=== PATIENT | female | born 1970 | race Caucasian/White ===

== ENCOUNTER 2017-07-30 18:46 | Emergency (ER) | payer MEDICAID ==
[~2017-07-30] VITALS: Ht 162.6 cm; Wt 90.7 kg
[2017-07-30 19:40] LABS: BASOPHILS # (AUTO) 0.1 X10'3 (0-0.2); BASOPHILS % (AUTO) 0.7 % (0-1); EOSINOPHILS # (AUTO) 0.3 X10'3 (0-0.9); HEMOGLOBIN 14.9 g/dl (12.0-16.0); LYMPHOCYTES # (AUTO) 3.5 X10'3 (1.1-4.8); LYMPHOCYTES % (AUTO) 41.2 % (21-51); MEAN CORPUSCULAR HEMOGLOBIN 30.5 PG (27.0-31.0); MEAN CORPUSCULAR HGB CONC 34.8 % (33.0-36.5); MEAN CORPUSCULAR VOLUME 87.6 FL (78-98); MEAN PLATELET VOLUME 8.6 FL (7.4-10.4); MONOCYTES # (AUTO) 0.6 X10'3 (0-0.9); MONOCYTES % (AUTO) 6.9 % (2-12); NEUTROPHILS # (AUTO) 4.1 X10'3 (1.8-7.7); NEUTROPHILS % (AUTO) 48.2 % (42-75); PLATELET COUNT 306 X10'3 (140-440); RED BLOOD COUNT 4.91 X10'6 (4.20-5.60); WHITE BLOOD COUNT 8.5 X10'3 (4.5-11.0)
[2017-07-30 19:51] LABS: PROTHROMBIN TIME 10.2 SECONDS (9.0-12.0)
[2017-07-30 19:59] LABS: ALANINE AMINOTRANSFERASE 27 U/L (12-78); ALBUMIN 3.9 G/DL (3.4-5.0); ALKALINE PHOSPHATASE 88 IU/L (46-116); ANION GAP 9 (8-16); ASPARTATE AMINO TRANSFERASE 19 U/L (10-37); BILIRUBIN,TOTAL 0.4 MG/DL (0.1-1.0); BLOOD UREA NITROGEN 12 MG/DL (7-18); BUN/CREATININE RATIO 13.3 (6.6-38.0); CALCIUM 9.1 MG/DL (8.5-10.1); CHLORIDE 103 MMOL/L (99-107); GLUCOSE 96 MG/DL (70-104); POTASSIUM 3.8 MMOL/L (3.5-5.1); SODIUM 140 MMOL/L (135-145); TOTAL CARBON DIOXIDE 28.5 MMOL/L (24-32); TOTAL PROTEIN 7.7 G/DL (6.4-8.2); eGFR 67 ML/MIN
[2017-07-30 20:15] LABS: CLARITY,URINE CLOUDY (Clear); COLOR,URINE YELLOW (Yellow); GLUCOSE, URINE NEGATIVE (Neg); KETONES,URINE NEGATIVE (Neg); LEUKOCYTE ESTERASE ,URINE NEGATIVE (Neg); NITRITES, URINE NEGATIVE (Neg); OCCULT BLOOD,URINE NEGATIVE (Neg); PROTEIN,URINE NEGATIVE (Neg); UROBILINOGEN,URINE 0.2 E.U/dL (0.2-1.0)
[2017-07-30 20:52] LABS: UA COLLECTION TYPE CLN CATCH MIDSTREAM
[2017-07-30 20:58] LABS: BACTERIA,URINE 4+ /HPF (Neg); MUCUS STRANDS MODERATE /LPF (Neg); RBC,URINE NONE SEEN /HPF (0-2); SQUAMOUS EPITHELIAL CELL,UR MANY /LPF (FEW); WBC,URINE 0-4 /HPF (0-4)
[2017-07-30 20:59] LABS: YEAST FEW /HPF (NEGATIVE)
[2017-07-30] MEDS ORDERED: ondansetron/PF 4mg/2ml inj IV ONE (22:30)
[2017-07-30] MEDS ORDERED: morphine 2 MG/ML inj. syringe IV ONE (22:30)
[2017-07-30] MEDS ORDERED: normal saline 1000ml 1,000 ML IV ONE (22:30)
[2017-07-30] MEDS ORDERED: iohexol 300mg/ml 100ml inj. ONE (22:38)
[2017-07-31] MEDS ORDERED: ACET1TAB12 PO (00:02)
[2017-07-31] MEDS ORDERED: morphine 2 MG/ML inj. syringe IV ONE (00:20)
[2017-07-31 00:53] VITALS: BP 110/76
== END 2017-07-31 00:54 | disposition home or self-care (01) ==
LOC: ER 18:46
DX: K52.9 Noninfective gastroenteritis and colitis, unspecified (principal); F17.200 Nicotine dependence, unspecified, uncomplicated; F12.10 Cannabis abuse, uncomplicated; Z90.710 Acquired absence of both cervix and uterus; Z88.2 Allergy status to sulfonamides; Z88.1 Allergy status to other antibiotic agents
CPT/HCPCS: 36415; 74177; 80053; 81001; 85025; 85610; 96361; 96374; 96375; 96376; 99285; J2270; J2405; J7030; Q9967

== ENCOUNTER 2017-10-04 20:34 | Emergency (ER) | payer MEDICAID ==
[~2017-10-04] VITALS: Ht 162.6 cm; Wt 81.1 kg
[~2017-10-04 20:34] MED LIST: ACET1TAB12 PO
[2017-10-04 20:43] VITALS: BP 118/72
[2017-10-04] MEDS ORDERED: DICL50TA8 PO (21:34)
[2017-10-04] MEDS ORDERED: HYDR-3965 PO (21:34)
== END 2017-10-04 21:38 | disposition home or self-care (01) ==
LOC: ER 20:35
DX: M54.5 Low back pain (principal); F12.10 Cannabis abuse, uncomplicated; G89.29 Other chronic pain; M79.7 Fibromyalgia; Z90.710 Acquired absence of both cervix and uterus; Z88.2 Allergy status to sulfonamides; Z88.1 Allergy status to other antibiotic agents; Z88.8 Allergy status to other drugs, medicaments and biological substances; Z79.899 Other long term (current) drug therapy
CPT/HCPCS: 99283

== ENCOUNTER 2019-03-20 14:38 | Emergency (ER) | payer MEDICAID ==
[~2019-03-20] VITALS: Ht 157.5 cm; Wt 88.1 kg
[~2019-03-20 14:38] MED LIST changes: +DICL50TA8 PO
[2019-03-20 14:44] VITALS: BP 131/109
[2019-03-20] MEDS ORDERED: dexamethasone sod phosphate 10mg/ml inj IM STA (15:29)
[2019-03-20] MEDS ORDERED: ketorolac tromethamine 15mg/ml inj. IM ONE (15:30)
== END 2019-03-20 15:44 | disposition home or self-care (01) ==
LOC: ER 14:39
DX: M54.2 Cervicalgia (principal); R20.0 Anesthesia of skin; F12.90 Cannabis use, unspecified, uncomplicated; G89.29 Other chronic pain; M79.7 Fibromyalgia; Z90.710 Acquired absence of both cervix and uterus; Z88.2 Allergy status to sulfonamides; Z88.1 Allergy status to other antibiotic agents; Z88.8 Allergy status to other drugs, medicaments and biological substances
CPT/HCPCS: 96372; 99283; J1100; J1885

== ENCOUNTER 2019-03-22 15:53 | Emergency (ER) | payer MEDICAID ==
[~2019-03-22] VITALS: Ht 157.5 cm; Wt 88.9 kg
[2019-03-22 15:56] VITALS: BP 139/92
[2019-03-22] MEDS ORDERED: DICL100G15 TOP (16:56)
== END 2019-03-22 17:30 | disposition home or self-care (01) ==
LOC: ER 15:54
DX: S60.211A Contusion of right wrist, initial encounter (principal); S70.01XA Contusion of right hip, initial encounter; G89.29 Other chronic pain; M79.7 Fibromyalgia; F12.90 Cannabis use, unspecified, uncomplicated; Z90.710 Acquired absence of both cervix and uterus; Z88.2 Allergy status to sulfonamides; Z88.1 Allergy status to other antibiotic agents; Z88.8 Allergy status to other drugs, medicaments and biological substances; Z79.899 Other long term (current) drug therapy; W01.0XXA Fall on same level from slipping, tripping and stumbling without subsequent striking against object, initial encounter; Y93.89 Activity, other specified; Y92.89 Other specified places as the place of occurrence of the external cause; Y99.8 Other external cause status
CPT/HCPCS: 99284

== ENCOUNTER 2019-04-02 17:44 | Emergency (ER) | payer MEDICAID ==
[~2019-04-02 17:44] MED LIST changes: +DICL100G15 TOP
== END 2019-04-02 18:56 | disposition left against medical advice (07) ==
LOC: ER 17:44
DX: M79.673 Pain in unspecified foot (principal); Z53.21 Procedure and treatment not carried out due to patient leaving prior to being seen by health care provider

== ENCOUNTER 2019-04-03 14:19 | Emergency (ER) | payer MEDICAID ==
[~2019-04-03] VITALS: Ht 157.5 cm; Wt 89.6 kg
[2019-04-03 14:58] VITALS: BP 119/80
[2019-04-03] MEDS ORDERED: ketorolac tromethamine 15mg/ml inj. IM ONE (15:15)
[2019-04-03] MEDS ORDERED: triamcinolone acetonide 40mg/ml inj IM ONE (15:35)
== END 2019-04-03 16:01 | disposition home or self-care (01) ==
LOC: ER 14:19
DX: S90.32XA Contusion of left foot, initial encounter (principal); M54.2 Cervicalgia; G89.29 Other chronic pain; M79.7 Fibromyalgia; F12.90 Cannabis use, unspecified, uncomplicated; Z90.710 Acquired absence of both cervix and uterus; Z88.2 Allergy status to sulfonamides; Z88.1 Allergy status to other antibiotic agents; Z79.899 Other long term (current) drug therapy; W01.0XXA Fall on same level from slipping, tripping and stumbling without subsequent striking against object, initial encounter; Y93.89 Activity, other specified; Y92.89 Other specified places as the place of occurrence of the external cause; Y99.8 Other external cause status
CPT/HCPCS: 73630; 96372; 99284; J1885; J3301

== ENCOUNTER 2019-09-29 16:51 | Emergency (ER) | payer MEDICAID ==
[~2019-09-29] VITALS: Ht 162.6 cm; Wt 93.0 kg
[2019-09-29 17:02] VITALS: BP 117/87
--- NOTE | 2019-09-29 18:17 | NUR ---
ice pack applied to right shoulder dr. martinez at bedside assessing pt.
[2019-09-29] MEDS ORDERED: ketorolac trometh. 30mg/ml inj. IM ONE (18:20)
[2019-09-29] MEDS ORDERED: HYDROcodone/acetaminophen 5mg/325mg tablet PO ONE (18:20)
[2019-09-29] MEDS ORDERED: HYDR-3965 PO (18:35)
== END 2019-09-29 18:51 | disposition home or self-care (01) ==
LOC: ER 16:52
DX: S42.201A Unspecified fracture of upper end of right humerus, initial encounter for closed fracture (principal); G89.29 Other chronic pain; M79.7 Fibromyalgia; F12.90 Cannabis use, unspecified, uncomplicated; Z90.710 Acquired absence of both cervix and uterus; Z88.2 Allergy status to sulfonamides; Z88.1 Allergy status to other antibiotic agents; Z88.5 Allergy status to narcotic agent; W01.0XXA Fall on same level from slipping, tripping and stumbling without subsequent striking against object, initial encounter; Y93.89 Activity, other specified; Y92.89 Other specified places as the place of occurrence of the external cause; Y99.8 Other external cause status
CPT/HCPCS: 73030; 96372; 99284; J1885

== ENCOUNTER 2019-10-29 09:18 | Emergency (ER) | payer MEDICAID ==
[~2019-10-29] VITALS: Ht 162.6 cm; Wt 87.3 kg
[2019-10-29 09:18] VITALS: BP 197/105
[2019-10-29] MEDS ORDERED: proCHLORperazine 10 MG/2 ml inj IV ONE (09:30)
[2019-10-29] MEDS ORDERED: normal saline 1000ml 1,000 ML IV ONE ×2 (09:30→10:00)
[2019-10-29] MEDS ORDERED: ondansetron/PF 4mg/2ml inj IV ONE (09:30)
[2019-10-29 09:34] LABS: BASOPHILS # (AUTO) 0.1 X10'3 (0-0.2); EOSINOPHILS # (AUTO) 0.3 X10'3 (0-0.9); EOSINOPHILS % (AUTO) 2.2 % (0-6); LYMPHOCYTES # (AUTO) 2.9 X10'3 (1.1-4.8); MEAN CORPUSCULAR HEMOGLOBIN 30.7 PG (27.0-31.0); NEUTROPHILS # (AUTO) 8.8 X10'3 (1.8-7.7); WHITE BLOOD COUNT 13.4 X10'3 (4.5-11.0)
[2019-10-29 09:35] LABS: BASOPHILS % (AUTO) 1.1 % (0-1); LYMPHOCYTES % (AUTO) 21.8 % (21-51); MEAN CORPUSCULAR VOLUME 90.2 FL (78-98); MEAN PLATELET VOLUME 8.4 FL (7.4-10.4); MONOCYTES # (AUTO) 1.2 X10'3 (0-0.9); MONOCYTES % (AUTO) 9.2 % (2-12); NEUTROPHILS % (AUTO) 65.7 % (42-75); PLATELET COUNT 281 X10'3 (140-440); RED BLOOD COUNT 4.88 X10'6 (4.20-5.60); RED CELL DISTRIBUTION WIDTH 13.6 % (11.5-14.5)
[2019-10-29 09:48] LABS: ALANINE AMINOTRANSFERASE 29 U/L (12-78); ALBUMIN 3.7 G/DL (3.4-5.0); ALKALINE PHOSPHATASE 97 IU/L (46-116); ANION GAP 9 (8-16); ASPARTATE AMINO TRANSFERASE 27 U/L (10-37); BILIRUBIN,TOTAL 0.3 MG/DL (0.1-1.0); BLOOD UREA NITROGEN 23 MG/DL (7-18); BUN/CREATININE RATIO 23.7 (6.6-38.0); CALCIUM 9.4 MG/DL (8.5-10.1); CHLORIDE 106 MMOL/L (99-107); CREATININE 0.97 MG/DL (0.40-0.90); GLUCOSE 115 MG/DL (70-104); LIPASE 258 U/L (73-393); POTASSIUM 3.6 MMOL/L (3.5-5.1); SODIUM 142 MMOL/L (135-145); TOTAL CARBON DIOXIDE 27.3 MMOL/L (24-32); TOTAL PROTEIN 7.3 G/DL (6.4-8.2); eGFR 61 ML/MIN
[2019-10-29] MEDS ORDERED: loperamide 2mg capsule PO ONE (10:20)
[2019-10-29] MEDS ORDERED: ONDA8TAB6 PO (10:22)
[2019-10-29 10:23] LABS: PLATELET ESTIMATE NORMAL; TOTAL CELLS COUNTED 100
== END 2019-10-29 10:48 | disposition home or self-care (01) ==
LOC: ER 09:18
DX: K52.9 Noninfective gastroenteritis and colitis, unspecified (principal); G89.29 Other chronic pain; M79.7 Fibromyalgia; F12.90 Cannabis use, unspecified, uncomplicated; Z90.710 Acquired absence of both cervix and uterus; Z88.2 Allergy status to sulfonamides; Z79.899 Other long term (current) drug therapy
CPT/HCPCS: 36415; 80053; 83690; 85025; 96361; 96374; 96375; 99284; J0780; J2405; J7030

== ENCOUNTER 2019-10-30 13:22 | Emergency (ER) | payer MEDICAID ==
[~2019-10-30] VITALS: Ht 162.6 cm; Wt 87.3 kg
[~2019-10-30 13:22] MED LIST changes: +ONDA8TAB6 PO
[2019-10-30 13:26] VITALS: BP 147/92
--- NOTE | 2019-10-30 14:03 | NUR ---
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
[2019-10-30] MEDS ORDERED: HYDROcodone/acetaminophen 5mg/325mg tablet PO ONE (15:10)
[2019-10-30] MEDS ORDERED: ondansetron 4mg rapidly disintigrating tab PO ONE (15:10)
== END 2019-10-30 15:24 | disposition home or self-care (01) ==
LOC: ER 13:23
DX: S43.491A Other sprain of right shoulder joint, initial encounter (principal); G89.29 Other chronic pain; M79.7 Fibromyalgia; F17.200 Nicotine dependence, unspecified, uncomplicated; F12.90 Cannabis use, unspecified, uncomplicated; Z90.710 Acquired absence of both cervix and uterus; Z88.2 Allergy status to sulfonamides; Z88.1 Allergy status to other antibiotic agents; Z79.899 Other long term (current) drug therapy; W01.0XXA Fall on same level from slipping, tripping and stumbling without subsequent striking against object, initial encounter; Y93.89 Activity, other specified; Y92.89 Other specified places as the place of occurrence of the external cause; Y99.8 Other external cause status
CPT/HCPCS: 73030; 99283

== ENCOUNTER 2019-12-02 21:45 | Emergency (ER) | payer MEDICAID ==
[~2019-12-02] VITALS: Ht 162.6 cm; Wt 82.7 kg
[2019-12-02] MEDS ORDERED: ketorolac trometh inj. 60 MG/2 ML VIAL IM ONE (22:50)
[2019-12-02] MEDS ORDERED: HYDROcodone/acetaminophen 10/325mg tab PO ONE (22:50)
[2019-12-02 23:05] VITALS: BP 123/98
== END 2019-12-02 23:06 | disposition home or self-care (01) ==
LOC: ER 21:45
DX: S49.92XA Unspecified injury of left shoulder and upper arm, initial encounter (principal); G89.29 Other chronic pain; M79.7 Fibromyalgia; F12.90 Cannabis use, unspecified, uncomplicated; Z90.710 Acquired absence of both cervix and uterus; Z88.2 Allergy status to sulfonamides; Z79.899 Other long term (current) drug therapy; W01.0XXA Fall on same level from slipping, tripping and stumbling without subsequent striking against object, initial encounter; Y93.89 Activity, other specified; Y92.89 Other specified places as the place of occurrence of the external cause; Y99.8 Other external cause status
CPT/HCPCS: 73030; 96372; 99284; J1885

== ENCOUNTER 2019-12-10 22:56 | Emergency (ER) | payer MEDICAID ==
[~2019-12-10] VITALS: Ht 162.6 cm; Wt 88.6 kg
[2019-12-10] MEDS ORDERED: magnesium 2GM in 50ml NS 50 ML IV ONE (23:10)
[2019-12-10] MEDS ORDERED: normal saline 1000ML IV soln IVB ONE (23:10)
[2019-12-10 23:22] LABS: BASOPHILS # (AUTO) 0.1 X10'3 (0-0.2); EOSINOPHILS # (AUTO) 0.3 X10'3 (0-0.9); EOSINOPHILS % (AUTO) 3.4 % (0-6); HEMATOCRIT 34.2 % (35.0-45.0); HEMOGLOBIN 11.6 g/dl (12.0-16.0); LYMPHOCYTES # (AUTO) 3.5 X10'3 (1.1-4.8); LYMPHOCYTES % (AUTO) 36.1 % (21-51); MEAN CORPUSCULAR HEMOGLOBIN 30.5 PG (27.0-31.0); MEAN CORPUSCULAR VOLUME 89.6 FL (78-98); MEAN PLATELET VOLUME 8.2 FL (7.4-10.4); MONOCYTES # (AUTO) 0.6 X10'3 (0-0.9); MONOCYTES % (AUTO) 6.7 % (2-12); NEUTROPHILS # (AUTO) 5.1 X10'3 (1.8-7.7); NEUTROPHILS % (AUTO) 52.8 % (42-75); PLATELET COUNT 230 X10'3 (140-440); RED BLOOD COUNT 3.82 X10'6 (4.20-5.60); RED CELL DISTRIBUTION WIDTH 13.2 % (11.5-14.5); WHITE BLOOD COUNT 9.6 X10'3 (4.5-11.0)
[2019-12-10 23:32] LABS: PARTIAL THROMBOPLASTIN TIME 34 SECONDS (22-32)
[2019-12-10 23:35] LABS: URINE AMPHETAMINE SCREEN NEGATIVE (Neg); URINE BARBITUATE SCREEN NEGATIVE (Neg); URINE BENZODIAZEPINES SCREEN POSITIVE (Neg); URINE CANNABINOID SCREEN POSITIVE (Neg); URINE COCAINE SCREEN NEGATIVE (Neg); URINE METHADONE SCREEN NEGATIVE (Neg); URINE OPIATE SCREEN NEGATIVE (Neg); URINE PHENCYCLIDINE SCREEN NEGATIVE (Neg)
[2019-12-10 23:35] LABS: ALANINE AMINOTRANSFERASE 25 U/L (12-78); ALBUMIN 2.7 G/DL (3.4-5.0); ALKALINE PHOSPHATASE 84 IU/L (46-116); ANION GAP 7 (8-16); ASPARTATE AMINO TRANSFERASE 17 U/L (10-37); BILIRUBIN,TOTAL 0.1 MG/DL (0.1-1.0); BLOOD UREA NITROGEN 6 MG/DL (7-18); BUN/CREATININE RATIO 6.7 (6.6-38.0); CHLORIDE 115 MMOL/L (99-107); CREATININE 0.89 MG/DL (0.40-0.90); ETHANOL < 0.010 GM/DL (0.0-0.010); GLUCOSE 70 MG/DL (70-104); MAGNESIUM 1.6 MG/DL (1.5-2.4); SODIUM 147 MMOL/L (135-145); TOTAL CARBON DIOXIDE 24.9 MMOL/L (24-32); TOTAL PROTEIN 5.5 G/DL (6.4-8.2); eGFR 68 ML/MIN
[2019-12-10 23:38] LABS: POTASSIUM 2.9 MMOL/L (3.5-5.1)
[2019-12-10] MEDS ORDERED: potassium Cl 20 mEq SR tablet PO ONE (23:50)
[2019-12-10] MEDS ORDERED: potassium Cl 10 mEq/100mL bag IV ONE (23:50)
[2019-12-10] MEDS ORDERED: HYDROcodone/acetaminophen 5mg/325mg tablet PO ONE (23:55)
[2019-12-11] MEDS ORDERED: magnesium oxide 400mg tablet PO ONE (00:10)
[2019-12-11] MEDS ORDERED: POTA20TA19 PO (01:19)
[2019-12-11] MEDS ORDERED: MAGN300C PO (01:19)
[2019-12-11 01:42] VITALS: BP 119/75
== END 2019-12-11 01:44 | disposition home or self-care (01) ==
LOC: ER 22:57
DX: I47.1 Supraventricular tachycardia (principal); E87.6 Hypokalemia; R94.31 Abnormal electrocardiogram [ECG] [EKG]; G89.29 Other chronic pain; F12.90 Cannabis use, unspecified, uncomplicated; Z90.710 Acquired absence of both cervix and uterus; Z88.2 Allergy status to sulfonamides; Z79.899 Other long term (current) drug therapy; Z88.8 Allergy status to other drugs, medicaments and biological substances
CPT/HCPCS: 36415; 71045; 80053; 80305; 80320; 83735; 84484; 85025; 85610; 85730; 93005; 96365; 96375; 99285; J3475; J3480; 96374

== ENCOUNTER 2020-01-12 15:25 | Emergency (ER) | payer MEDICAID ==
[~2020-01-12] VITALS: Ht 162.6 cm; Wt 88.6 kg
[~2020-01-12 15:25] MED LIST changes: +MAGN300C PO
[2020-01-12] MEDS ORDERED: normal saline 1000ML IV soln IVB ONE (15:40)
[2020-01-12] MEDS ORDERED: magnesium 2GM in 50ml NS 50 ML IV ONE (15:45)
[2020-01-12 16:16] LABS: BASOPHILS # (AUTO) 0.1 X10'3 (0-0.2); EOSINOPHILS # (AUTO) 0.3 X10'3 (0-0.9); EOSINOPHILS % (AUTO) 4.3 % (0-6); HEMATOCRIT 40.5 % (35.0-45.0); LYMPHOCYTES # (AUTO) 3.3 X10'3 (1.1-4.8); LYMPHOCYTES % (AUTO) 45.2 % (21-51); MEAN CORPUSCULAR HEMOGLOBIN 30.8 PG (27.0-31.0); MEAN CORPUSCULAR HGB CONC 34.6 g/dL (33.0-36.5); MEAN CORPUSCULAR VOLUME 89.2 FL (78-98); MEAN PLATELET VOLUME 8.3 FL (7.4-10.4); MONOCYTES # (AUTO) 0.4 X10'3 (0-0.9); MONOCYTES % (AUTO) 6.1 % (2-12); NEUTROPHILS # (AUTO) 3.2 X10'3 (1.8-7.7); NEUTROPHILS % (AUTO) 43.4 % (42-75); PLATELET COUNT 280 X10'3 (140-440); RED BLOOD COUNT 4.54 X10'6 (4.20-5.60); RED CELL DISTRIBUTION WIDTH 13.1 % (11.5-14.5); WHITE BLOOD COUNT 7.3 X10'3 (4.5-11.0)
[2020-01-12 16:27] LABS: ALANINE AMINOTRANSFERASE 23 U/L (12-78); ALBUMIN 3.3 G/DL (3.4-5.0); ALBUMIN/GLOBULIN RATIO 0.8 (1.1-1.5); ALKALINE PHOSPHATASE 105 IU/L (46-116); ANION GAP 8 (8-16); ASPARTATE AMINO TRANSFERASE 20 U/L (10-37); BILIRUBIN,TOTAL 0.2 MG/DL (0.1-1.0); BLOOD UREA NITROGEN 9 MG/DL (7-18); BUN/CREATININE RATIO 9.6 (6.6-38.0); CALCIUM 8.7 MG/DL (8.5-10.1); CHLORIDE 105 MMOL/L (99-107); CREATININE 0.94 MG/DL (0.40-0.90); GLUCOSE 83 MG/DL (70-104); POTASSIUM 3.9 MMOL/L (3.5-5.1); SODIUM 140 MMOL/L (135-145); TOTAL CARBON DIOXIDE 26.9 MMOL/L (24-32); TOTAL PROTEIN 7.3 G/DL (6.4-8.2); eGFR 64 ML/MIN
[2020-01-12] MEDS ORDERED: ketorolac trometh. 30mg/ml inj. IV ONE (16:30)
[2020-01-12 17:16] LABS: CLARITY,URINE SLIGHTLY CLOUDY (Clear); COLOR,URINE YELLOW (Yellow); GLUCOSE, URINE NEGATIVE (Neg); KETONES,URINE NEGATIVE (Neg); LEUKOCYTE ESTERASE ,URINE NEGATIVE (Neg); NITRITES, URINE NEGATIVE (Neg); OCCULT BLOOD,URINE NEGATIVE (Neg); PH,URINE 7.5 (4.8-8.0); PROTEIN,URINE NEGATIVE (Neg); UROBILINOGEN,URINE 0.2 E.U/dL (0.2-1.0)
[2020-01-12 17:19] LABS: UA COLLECTION TYPE CLN CATCH MIDSTREAM
[2020-01-12 17:22] LABS: MUCUS STRANDS NONE SEEN /LPF (Neg); SQUAMOUS EPITHELIAL CELL,UR MANY /LPF (FEW); TRANSITIONAL EPI CELLS,URINE FEW /HPF
[2020-01-12 17:23] LABS: BACTERIA,URINE 3+ /HPF (Neg); RBC,URINE 0-2 /HPF (0-2); WBC,URINE 0-4 /HPF (0-4)
[2020-01-12] MEDS ORDERED: CITA40TA17 PO (17:30)
[2020-01-12] MEDS ORDERED: GABA800T11 PO (17:30)
[2020-01-12] MEDS ORDERED: DIAZ2TAB4 PO (17:30)
[2020-01-12] MEDS ORDERED: CYCL-1 PO (17:30)
[2020-01-12] MEDS ORDERED: METO-395 PO ×2 (17:59→18:19)
[2020-01-12] MEDS ORDERED: metoprolol tartrate 50mg tablet PO ONE (18:00)
[2020-01-12] MEDS ORDERED: morphine 4 MG/ML inj SYRINge IV ONE (18:05)
[2020-01-12 18:30] VITALS: BP 116/80
== END 2020-01-12 18:26 | disposition home or self-care (01) ==
LOC: ER 15:26
DX: I47.1 Supraventricular tachycardia (principal); R10.9 Unspecified abdominal pain; F17.200 Nicotine dependence, unspecified, uncomplicated; G89.29 Other chronic pain; M79.7 Fibromyalgia; F12.90 Cannabis use, unspecified, uncomplicated; Z90.710 Acquired absence of both cervix and uterus; Z88.2 Allergy status to sulfonamides; Z88.1 Allergy status to other antibiotic agents; Z88.8 Allergy status to other drugs, medicaments and biological substances; Z79.899 Other long term (current) drug therapy
CPT/HCPCS: 36415; 80053; 81001; 83735; 85025; 93005; 96365; 96375; 99285; J1885; J2270; J3475; J7030

== ENCOUNTER 2020-01-13 04:22 | Emergency (ER) | payer MEDICAID ==
[~2020-01-13] VITALS: Ht 162.6 cm; Wt 88.6 kg
[~2020-01-13 04:22] MED LIST changes: -ACET1TAB12 PO; +CITA40TA17 PO; +CYCL-1 PO; +DIAZ2TAB4 PO; -DICL100G15 TOP; -DICL50TA8 PO; +GABA800T11 PO; -MAGN300C PO; +METO-395 PO; -ONDA8TAB6 PO
[2020-01-13] MEDS ORDERED: LIDOcaine Viscous 15ml cup MM PRN (05:40)
[2020-01-13] MEDS ORDERED: mag hydrox/Alum hydrox/simeth 30ml oral suspension PO ONE (05:40)
[2020-01-13] MEDS ORDERED: sucralfate 1gm/10ml UD suspension PO ONE (05:40)
[2020-01-13] MEDS ORDERED: ondansetron/PF 4mg/2ml inj IV ONE (05:40)
[2020-01-13 05:54] VITALS: BP 99/73
== END 2020-01-13 05:56 | disposition home or self-care (01) ==
LOC: ER 04:22
DX: I47.1 Supraventricular tachycardia (principal); F12.90 Cannabis use, unspecified, uncomplicated; G89.29 Other chronic pain; Z87.11 Personal history of peptic ulcer disease; Z90.710 Acquired absence of both cervix and uterus; Z88.2 Allergy status to sulfonamides; Z88.1 Allergy status to other antibiotic agents; Z88.8 Allergy status to other drugs, medicaments and biological substances; Z79.899 Other long term (current) drug therapy
CPT/HCPCS: 36415; 84439; 84443; 93005; 96374; 99284; J2405

== ENCOUNTER 2020-02-16 08:13 | Emergency (ER) | payer MEDICAID ==
[~2020-02-16] VITALS: Ht 162.6 cm; Wt 95.0 kg
[2020-02-16 08:16] VITALS: BP 126/92
[2020-02-16 09:16] LABS: BASOPHILS # (AUTO) 0.1 X10'3 (0-0.2); BASOPHILS % (AUTO) 1.2 % (0-1); EOSINOPHILS # (AUTO) 0.3 X10'3 (0-0.9); EOSINOPHILS % (AUTO) 4.1 % (0-6); HEMATOCRIT 39.6 % (35.0-45.0); HEMOGLOBIN 13.5 g/dl (12.0-16.0); LYMPHOCYTES # (AUTO) 2.6 X10'3 (1.1-4.8); LYMPHOCYTES % (AUTO) 33.3 % (21-51); MEAN CORPUSCULAR HEMOGLOBIN 30.6 PG (27.0-31.0); MEAN CORPUSCULAR HGB CONC 34.1 g/dL (33.0-36.5); MEAN CORPUSCULAR VOLUME 89.7 FL (78-98); MONOCYTES # (AUTO) 0.5 X10'3 (0-0.9); MONOCYTES % (AUTO) 6.8 % (2-12); NEUTROPHILS # (AUTO) 4.3 X10'3 (1.8-7.7); NEUTROPHILS % (AUTO) 54.6 % (42-75); PLATELET COUNT 274 X10'3 (140-440); RED BLOOD COUNT 4.41 X10'6 (4.20-5.60); RED CELL DISTRIBUTION WIDTH 13.5 % (11.5-14.5); WHITE BLOOD COUNT 7.9 X10'3 (4.5-11.0)
[2020-02-16 09:18] LABS: ALANINE AMINOTRANSFERASE 23 U/L (12-78); ALBUMIN 3.1 G/DL (3.4-5.0); ALBUMIN/GLOBULIN RATIO 0.9 (1.1-1.5); ALKALINE PHOSPHATASE 86 IU/L (46-116); ANION GAP 9 (8-16); ASPARTATE AMINO TRANSFERASE 20 U/L (10-37); BILIRUBIN,TOTAL 0.2 MG/DL (0.1-1.0); BLOOD UREA NITROGEN 10 MG/DL (7-18); BUN/CREATININE RATIO 11.5 (6.6-38.0); CHLORIDE 111 MMOL/L (99-107); CREATININE 0.87 MG/DL (0.40-0.90); GLUCOSE 79 MG/DL (70-104); MAGNESIUM 1.6 MG/DL (1.5-2.4); POTASSIUM 3.3 MMOL/L (3.5-5.1); SODIUM 144 MMOL/L (135-145); TOTAL CARBON DIOXIDE 24.4 MMOL/L (24-32); TOTAL PROTEIN 6.6 G/DL (6.4-8.2); eGFR 69 ML/MIN
== END 2020-02-16 09:16 | disposition home or self-care (01) ==
LOC: ER 08:13
DX: I47.1 Supraventricular tachycardia (principal); G89.29 Other chronic pain; M79.7 Fibromyalgia; F12.90 Cannabis use, unspecified, uncomplicated; Z90.710 Acquired absence of both cervix and uterus; Z88.2 Allergy status to sulfonamides; Z88.1 Allergy status to other antibiotic agents; Z79.899 Other long term (current) drug therapy
CPT/HCPCS: 36415; 80053; 83735; 85025; 99284

== ENCOUNTER 2020-07-05 19:35 | Emergency (ER) | payer MEDICAID ==
[~2020-07-05] VITALS: Ht 162.6 cm; Wt 76.0 kg
[2020-07-05 19:38] VITALS: BP 119/87
--- NOTE | 2020-07-05 21:05 | NUR ---
PT AMBULATED DOWN HALLWAY INDEPENDENTLY WITH MINIAL DIFFICULTY OR ASSITANCE
[2020-07-05] MEDS ORDERED: ketorolac tromethamine 15mg/ml inj. IM ONE (21:15)
--- NOTE | 2020-07-05 21:25 | NUR ---
PT TO X RAY VIA WHEEL CHAIR
--- NOTE | 2020-07-05 21:35 | NUR ---
PT BACK FROM XRAY
[2020-07-05] MEDS ORDERED: traMADol 50MG tablet PO ONE (21:55)
--- NOTE | 2020-07-05 22:04 | NUR ---
PT MOVED TO ROOM 18
[2020-07-05] MEDS ORDERED: TRAM50TA2 PO (22:14)
== END 2020-07-05 22:25 | disposition home or self-care (01) ==
LOC: ER 19:35
DX: M79.652 Pain in left thigh (principal); E07.9 Disorder of thyroid, unspecified; G89.29 Other chronic pain; M79.7 Fibromyalgia; F17.200 Nicotine dependence, unspecified, uncomplicated; F12.90 Cannabis use, unspecified, uncomplicated; Z90.710 Acquired absence of both cervix and uterus; Z88.1 Allergy status to other antibiotic agents; Z88.2 Allergy status to sulfonamides; Z88.8 Allergy status to other drugs, medicaments and biological substances; Z79.899 Other long term (current) drug therapy
CPT/HCPCS: 73502; 73552; 96372; 99284; J1885

== ENCOUNTER 2020-12-26 10:37 | Emergency (ER) | payer MEDICAID ==
[~2020-12-26] VITALS: Ht 162.6 cm; Wt 83.6 kg
[2020-12-26 12:45] LABS: BASOPHILS # (AUTO) 0.1 X10'3 (0-0.2); BASOPHILS % (AUTO) 0.8 % (0-1); EOSINOPHILS % (AUTO) 0 % (0-6); HEMATOCRIT 42.1 % (35.0-45.0); HEMOGLOBIN 14.7 g/dl (12.0-16.0); LYMPHOCYTES # (AUTO) 1.7 X10'3 (1.1-4.8); LYMPHOCYTES % (AUTO) 11.5 % (21-51); MEAN CORPUSCULAR HEMOGLOBIN 30.9 PG (27.0-31.0); MEAN CORPUSCULAR HGB CONC 34.9 g/dL (33.0-36.5); MEAN CORPUSCULAR VOLUME 88.6 FL (78-98); MONOCYTES # (AUTO) 1.1 X10'3 (0-0.9); MONOCYTES % (AUTO) 7.8 % (2-12); NEUTROPHILS # (AUTO) 11.7 X10'3 (1.8-7.7); NEUTROPHILS % (AUTO) 79.9 % (42-75); PLATELET COUNT 327 X10'3 (140-440); RED BLOOD COUNT 4.75 X10'6 (4.20-5.60); RED CELL DISTRIBUTION WIDTH 13.6 % (11.5-14.5); WHITE BLOOD COUNT 14.7 X10'3 (4.5-11.0)
[2020-12-26] MEDS ORDERED: normal saline 1000ML IV soln IVB ONE (12:45)
[2020-12-26] MEDS ORDERED: ondansetron/PF 4mg/2ml inj IV ONE (12:45)
[2020-12-26 12:54] LABS: ALANINE AMINOTRANSFERASE 35 U/L (12-78); ALBUMIN 3.8 G/DL (3.4-5.0); ALBUMIN/GLOBULIN RATIO 0.9 (1.1-1.5); ALKALINE PHOSPHATASE 108 IU/L (46-116); ANION GAP 14 (8-16); ASPARTATE AMINO TRANSFERASE 19 U/L (10-37); BILIRUBIN,TOTAL 0.3 MG/DL (0.1-1.0); BLOOD UREA NITROGEN 10 MG/DL (7-18); BUN/CREATININE RATIO 9.6 (6.6-38.0); CALCIUM 9.2 MG/DL (8.5-10.1); CHLORIDE 106 MMOL/L (99-107); CREATININE 1.04 MG/DL (0.40-0.90); GLUCOSE 135 MG/DL (70-104); LIPASE < 50 U/L (73-393); POTASSIUM 3.2 MMOL/L (3.5-5.1); SODIUM 143 MMOL/L (135-145); TOTAL CARBON DIOXIDE 22.7 MMOL/L (24-32); eGFR 56 ML/MIN
[2020-12-26 13:44] LABS: CLARITY,URINE CLOUDY (Clear); COLOR,URINE YELLOW (Yellow); GLUCOSE, URINE NEGATIVE (Neg); KETONES,URINE NEGATIVE (Neg); LEUKOCYTE ESTERASE ,URINE TRACE (Neg); NITRITES, URINE NEGATIVE (Neg); OCCULT BLOOD,URINE TRACE-INTACT (Neg); PROTEIN,URINE 100 mg/dl (Neg); UROBILINOGEN,URINE 0.2 E.U/dL (0.2-1.0)
[2020-12-26 13:45] LABS: UA COLLECTION TYPE CLN CATCH MIDSTREAM
[2020-12-26 13:48] LABS: URINE HCG NEGATIVE (NEG)
[2020-12-26 13:50] LABS: BACTERIA,URINE 2+ /HPF (Neg); MUCUS STRANDS MANY /LPF (Neg); RBC,URINE 0-2 /HPF (0-2); SQUAMOUS EPITHELIAL CELL,UR MANY /LPF (FEW)
[2020-12-26] MEDS ORDERED: ondansetron 4mg rapidly disintigrating tab PO ONE (14:15)
--- NOTE | 2020-12-26 14:28 | NUR ---
SRAVANI Boucher notified pt vomiting at departure discharge. Zofran 4mg given 2nd dose. PA at bedside at this time
[2020-12-26] MEDS ORDERED: ONDA4TAB6 PO (14:32)
[2020-12-26] MEDS ORDERED: diphenhydrAMINE 50 mg/ml inj IV ONE (15:05)
[2020-12-26] MEDS ORDERED: haloperidol lactate 5mg/ml inj IV ONE (15:05)
--- NOTE | 2020-12-26 16:08 | NUR ---
pt has ride home with family, will be here shortly
[2020-12-26 16:13] VITALS: BP 170/92
== END 2020-12-26 16:15 | disposition home or self-care (01) ==
LOC: ER 10:37
DX: R11.15 Cyclical vomiting syndrome unrelated to migraine (principal); R11.2 Nausea with vomiting, unspecified; R10.84 Generalized abdominal pain; R50.9 Fever, unspecified; G89.29 Other chronic pain; F12.90 Cannabis use, unspecified, uncomplicated; Z87.11 Personal history of peptic ulcer disease; Z90.710 Acquired absence of both cervix and uterus; Z88.2 Allergy status to sulfonamides; Z88.1 Allergy status to other antibiotic agents; Z88.8 Allergy status to other drugs, medicaments and biological substances; Z79.899 Other long term (current) drug therapy
CPT/HCPCS: 36415; 80053; 81001; 81025; 83690; 85025; 96361; 96374; 96375; 99285; J1200; J1630; J2405; J7030

== ENCOUNTER 2021-09-13 16:17 | Emergency (ER) | payer MEDICAID ==
[~2021-09-13] VITALS: Ht 162.6 cm; Wt 81.8 kg
[~2021-09-13 16:17] MED LIST changes: +ONDA4TAB6 PO
[2021-09-13 16:19] VITALS: BP 142/84
[2021-09-13] MEDS ORDERED: ketorolac trometh inj. 60 MG/2 ML VIAL IM ONE (18:25)
[2021-09-13] MEDS ORDERED: HYDROcodone/acetaminophen 5mg/325mg tablet PO ONE (18:25)
[2021-09-13] MEDS ORDERED: CYCL-1 PO (18:27)
[2021-09-13] MEDS ORDERED: TRAM50TA2 PO (18:27)
== END 2021-09-13 18:39 | disposition home or self-care (01) ==
LOC: ER 16:18
DX: M54.50 Low back pain, unspecified (principal); G89.29 Other chronic pain; F12.90 Cannabis use, unspecified, uncomplicated; Z87.11 Personal history of peptic ulcer disease; Z90.710 Acquired absence of both cervix and uterus; Z88.2 Allergy status to sulfonamides; Z88.1 Allergy status to other antibiotic agents; Z88.8 Allergy status to other drugs, medicaments and biological substances; Z79.899 Other long term (current) drug therapy
CPT/HCPCS: 96372; 99283; J1885

== ENCOUNTER 2021-10-01 17:39 | Emergency (ER) | payer MEDICAID ==
[~2021-10-01] VITALS: Ht 162.6 cm; Wt 79.5 kg
[~2021-10-01 17:39] MED LIST changes: +TRAM50TA2 PO
[2021-10-01 18:42] LABS: ALANINE AMINOTRANSFERASE 28 U/L (12-78); ALBUMIN 3.3 G/DL (3.4-5.0); ALKALINE PHOSPHATASE 97 IU/L (46-116); ANION GAP 11 (8-16); ASPARTATE AMINO TRANSFERASE 20 U/L (10-37); BILIRUBIN,TOTAL 0.3 MG/DL (0.1-1.0); BLOOD UREA NITROGEN 13 MG/DL (7-18); CALCIUM 8.5 MG/DL (8.5-10.1); CHLORIDE 103 MMOL/L (99-107); CREATININE 0.81 MG/DL (0.40-0.90); GLUCOSE 97 MG/DL (70-104); LIPASE 86 U/L (73-393); POTASSIUM 3.6 MMOL/L (3.5-5.1); SODIUM 138 MMOL/L (135-145); TOTAL CARBON DIOXIDE 24.2 MMOL/L (24-32); TOTAL PROTEIN 6.6 G/DL (6.4-8.2); eGFR 75 ML/MIN
[2021-10-01 18:50] LABS: BASOPHILS % (AUTO) 0.6 % (0-1); EOSINOPHILS # (AUTO) 0.2 X10'3 (0-0.9); EOSINOPHILS % (AUTO) 2.9 % (0-6); HEMATOCRIT 38.8 % (35.0-45.0); HEMOGLOBIN 13.2 g/dl (12.0-16.0); LYMPHOCYTES # (AUTO) 2.4 X10'3 (1.1-4.8); LYMPHOCYTES % (AUTO) 33.6 % (21-51); MEAN CORPUSCULAR HEMOGLOBIN 29.9 PG (27.0-31.0); MEAN CORPUSCULAR HGB CONC 34.2 g/dL (33.0-36.5); MEAN CORPUSCULAR VOLUME 87.6 FL (78-98); MEAN PLATELET VOLUME 8.9 FL (7.4-10.4); MONOCYTES # (AUTO) 0.5 X10'3 (0-0.9); MONOCYTES % (AUTO) 7.7 % (2-12); NEUTROPHILS # (AUTO) 3.9 X10'3 (1.8-7.7); NEUTROPHILS % (AUTO) 55.2 % (42-75); PLATELET COUNT 223 X10'3 (140-440); RED BLOOD COUNT 4.43 X10'6 (4.20-5.60); RED CELL DISTRIBUTION WIDTH 13.6 % (11.5-14.5)
[2021-10-01] MEDS ORDERED: triamcinolone acetonide 40mg/ml inj IM ONE (18:50)
[2021-10-01] MEDS ORDERED: HYDROcodone/acetaminophen 10/325mg tab PO ONE (18:50)
[2021-10-01] MEDS ORDERED: ketorolac trometh. 30mg/ml inj. IM ONE (18:50)
[2021-10-01 19:02] LABS: URINE HCG NEGATIVE (NEG)
[2021-10-01 19:12] LABS: CLARITY,URINE CLEAR (Clear); COLOR,URINE YELLOW (Yellow); GLUCOSE, URINE NEGATIVE (Neg); KETONES,URINE NEGATIVE (Neg); LEUKOCYTE ESTERASE ,URINE NEGATIVE (Neg); NITRITES, URINE NEGATIVE (Neg); OCCULT BLOOD,URINE NEGATIVE (Neg); PH,URINE 7.5 (4.8-8.0); PROTEIN,URINE NEGATIVE (Neg); UROBILINOGEN,URINE 0.2 E.U/dL (0.2-1.0)
[2021-10-01 19:14] LABS: UA COLLECTION TYPE CLN CATCH MIDSTREAM
[2021-10-01 19:20] VITALS: BP 110/72
[2021-10-01] MEDS ORDERED: HYDR-3972 PO (19:34)
== END 2021-10-01 19:47 | disposition home or self-care (01) ==
LOC: ER 17:39
DX: S39.012A Strain of muscle, fascia and tendon of lower back, initial encounter (principal); M54.17 Radiculopathy, lumbosacral region; M25.551 Pain in right hip; G89.29 Other chronic pain; F12.90 Cannabis use, unspecified, uncomplicated; Z87.11 Personal history of peptic ulcer disease; Z90.710 Acquired absence of both cervix and uterus; Z88.2 Allergy status to sulfonamides; Z88.1 Allergy status to other antibiotic agents; Z79.899 Other long term (current) drug therapy; X58.XXXA Exposure to other specified factors, initial encounter; Y93.89 Activity, other specified; Y92.89 Other specified places as the place of occurrence of the external cause; Y99.8 Other external cause status
CPT/HCPCS: 36415; 72100; 72170; 80053; 81003; 81025; 83690; 85025; 96372; 99284; J1885; J3301

== ENCOUNTER 2021-11-15 19:53 | Emergency (ER) | payer MEDICAID ==
[~2021-11-15] VITALS: Ht 162.6 cm; Wt 77.2 kg
[~2021-11-15 19:53] MED LIST changes: -TRAM50TA2 PO
[2021-11-15 19:55] VITALS: BP 143/85
--- NOTE | 2021-11-15 22:25 | NUR ---
abd binder placed per vo from er provider. pt education given on binder
[2021-11-15] MEDS ORDERED: HYDROcodone/acetaminophen 5mg/325mg tablet PO ONE (22:45)
[2021-11-15] MEDS ORDERED: HYDR-3965 PO (23:01)
--- NOTE | 2021-11-15 23:26 | NUR ---
pt education given on incentive spirometer use. pt understood with return demo
== END 2021-11-15 23:27 | disposition home or self-care (01) ==
LOC: ER 19:54
DX: R07.81 Pleurodynia (principal); R06.02 Shortness of breath; G89.29 Other chronic pain; F12.90 Cannabis use, unspecified, uncomplicated; Z87.11 Personal history of peptic ulcer disease; Z90.710 Acquired absence of both cervix and uterus; Z88.2 Allergy status to sulfonamides; Z88.1 Allergy status to other antibiotic agents; Z88.8 Allergy status to other drugs, medicaments and biological substances; Z79.899 Other long term (current) drug therapy
CPT/HCPCS: 71046; 99283

== ENCOUNTER 2021-12-23 18:55 | Emergency (ER) | payer MEDICAID ==
[~2021-12-23] VITALS: Ht 160 cm; Wt 71.3 kg
[2021-12-23 19:42] LABS: BASOPHILS # (AUTO) 0.1 X10'3 (0-0.2); BASOPHILS % (AUTO) 1.3 % (0-1); EOSINOPHILS # (AUTO) 0.4 X10'3 (0-0.9); EOSINOPHILS % (AUTO) 4.1 % (0-6); HEMATOCRIT 40.5 % (35.0-45.0); HEMOGLOBIN 13.7 g/dl (12.0-16.0); LYMPHOCYTES # (AUTO) 3.2 X10'3 (1.1-4.8); LYMPHOCYTES % (AUTO) 37.3 % (21-51); MEAN CORPUSCULAR HEMOGLOBIN 29.9 PG (27.0-31.0); MEAN CORPUSCULAR HGB CONC 33.8 g/dL (33.0-36.5); MEAN CORPUSCULAR VOLUME 88.6 FL (78-98); MEAN PLATELET VOLUME 8.9 FL (7.4-10.4); MONOCYTES # (AUTO) 0.4 X10'3 (0-0.9); MONOCYTES % (AUTO) 5.2 % (2-12); NEUTROPHILS # (AUTO) 4.5 X10'3 (1.8-7.7); NEUTROPHILS % (AUTO) 52.1 % (42-75); PLATELET COUNT 247 X10'3 (140-440); RED BLOOD COUNT 4.57 X10'6 (4.20-5.60); RED CELL DISTRIBUTION WIDTH 13.7 % (11.5-14.5); WHITE BLOOD COUNT 8.6 X10'3 (4.5-11.0)
[2021-12-23] MEDS ORDERED: normal saline 1000ML IV soln IVB ONE (19:45)
[2021-12-23] MEDS ORDERED: ketorolac trometh. 30mg/ml inj. IV ONE (19:45)
[2021-12-23 19:46] LABS: ALANINE AMINOTRANSFERASE 37 U/L (12-78); ALBUMIN 3.3 G/DL (3.4-5.0); ALKALINE PHOSPHATASE 106 IU/L (46-116); ANION GAP 7 (8-16); ASPARTATE AMINO TRANSFERASE 24 U/L (10-37); BILIRUBIN,TOTAL 0.1 MG/DL (0.1-1.0); BLOOD UREA NITROGEN 18 MG/DL (7-18); BUN/CREATININE RATIO 17.3 (6.6-38.0); CALCIUM 8.4 MG/DL (8.5-10.1); CHLORIDE 106 MMOL/L (99-107); CREATININE 1.04 MG/DL (0.40-0.90); GLUCOSE 93 MG/DL (70-104); LIPASE 104 U/L (73-393); POTASSIUM 3.6 MMOL/L (3.5-5.1); SODIUM 143 MMOL/L (135-145); TOTAL CARBON DIOXIDE 29.9 MMOL/L (24-32); TOTAL PROTEIN 6.7 G/DL (6.4-8.2); eGFR 56 ML/MIN
[2021-12-23] MEDS: morphine 2 MG/ML inj. syringe IV PRN ×3 (20:03→21:30)
[2021-12-23 20:15] LABS: C-REACTIVE PROTEIN 0.05 MG/DL (0.0-0.5)
[2021-12-23] MEDS ORDERED: dicyclomine 10 MG capsule PO ONE (20:55)
[2021-12-23 21:18] LABS: URINE HCG NEGATIVE (NEG)
[2021-12-23 21:40] LABS: CLARITY,URINE SLIGHTLY CLOUDY (Clear); COLOR,URINE YELLOW (Yellow); GLUCOSE, URINE NEGATIVE (Neg); KETONES,URINE NEGATIVE (Neg); LEUKOCYTE ESTERASE ,URINE TRACE (Neg); NITRITES, URINE NEGATIVE (Neg); OCCULT BLOOD,URINE NEGATIVE (Neg); PROTEIN,URINE NEGATIVE (Neg); UROBILINOGEN,URINE 0.2 E.U/dL (0.2-1.0)
[2021-12-23 21:41] LABS: UA COLLECTION TYPE CLN CATCH MIDSTREAM
[2021-12-23 21:42] VITALS: BP 115/76
[2021-12-23 22:22] LABS: WBC,URINE 0-4 /HPF (0-4)
[2021-12-23 22:23] LABS: BACTERIA,URINE 3+ /HPF (Neg); RBC,URINE NONE SEEN /HPF (0-2)
[2021-12-23 22:24] LABS: MUCUS STRANDS NONE SEEN /LPF (Neg); SQUAMOUS EPITHELIAL CELL,UR MANY /LPF (FEW)
== END 2021-12-23 21:43 | disposition home or self-care (01) ==
LOC: ER 18:56
DX: R10.84 Generalized abdominal pain (principal); R42 Dizziness and giddiness; M54.9 Dorsalgia, unspecified; E06.9 Thyroiditis, unspecified; G89.29 Other chronic pain; Z20.822 Contact with and (suspected) exposure to COVID-19; F12.10 Cannabis abuse, uncomplicated; Z88.2 Allergy status to sulfonamides; Z88.1 Allergy status to other antibiotic agents; Z88.8 Allergy status to other drugs, medicaments and biological substances
CPT/HCPCS: 36415; 80053; 81001; 81025; 83690; 84145; 85025; 86140; 87635; 96361; 96374; 96375; 96376; 99284; C9803; J1885; J2270; J7030

== ENCOUNTER 2022-03-13 13:32 | Emergency (ER) | payer MEDICAID ==
[~2022-03-13] VITALS: Ht 162.6 cm; Wt 76.2 kg
[2022-03-13] MEDS ORDERED: ondansetron 4mg rapidly disintigrating tab PO ONE (14:35)
[2022-03-13] MEDS ORDERED: ringers solution, lactated 1000ml IV soln IV ONE (14:50)
[2022-03-13] MEDS ORDERED: ondansetron/PF 4mg/2ml inj IM ONE (15:15)
[2022-03-13] MEDS ORDERED: CefTRIAXone 2gm/D5W 50ml BAG 50 ML IV ONE (15:25)
[2022-03-13] MEDS ORDERED: ondansetron/PF 4mg/2ml inj IV ONE (15:30)
[2022-03-13 15:40] LABS: BASOPHILS # (AUTO) 0.1 X10'3 (0-0.2); BASOPHILS % (AUTO) 0.5 % (0-1); EOSINOPHILS % (AUTO) 0.3 % (0-6); HEMATOCRIT 44.9 % (35.0-45.0); HEMOGLOBIN 15.4 g/dl (12.0-16.0); LYMPHOCYTES # (AUTO) 1.6 X10'3 (1.1-4.8); LYMPHOCYTES % (AUTO) 13.2 % (21-51); MEAN CORPUSCULAR HGB CONC 34.3 g/dL (33.0-36.5); MEAN CORPUSCULAR VOLUME 87.6 FL (78-98); MEAN PLATELET VOLUME 8.4 FL (7.4-10.4); MONOCYTES # (AUTO) 0.5 X10'3 (0-0.9); MONOCYTES % (AUTO) 3.8 % (2-12); NEUTROPHILS # (AUTO) 9.8 X10'3 (1.8-7.7); NEUTROPHILS % (AUTO) 82.2 % (42-75); PLATELET COUNT 335 X10'3 (140-440); RED BLOOD COUNT 5.13 X10'6 (4.20-5.60); RED CELL DISTRIBUTION WIDTH 12.7 % (11.5-14.5); WHITE BLOOD COUNT 11.9 X10'3 (4.5-11.0)
[2022-03-13 15:53] LABS: ALANINE AMINOTRANSFERASE 32 U/L (12-78); ALBUMIN 4.1 G/DL (3.4-5.0); ALBUMIN/GLOBULIN RATIO 1.1 (1.1-1.5); ALKALINE PHOSPHATASE 113 IU/L (46-116); ANION GAP 13 (8-16); ASPARTATE AMINO TRANSFERASE 22 U/L (10-37); BILIRUBIN,TOTAL 0.4 MG/DL (0.1-1.0); BLOOD UREA NITROGEN 18 MG/DL (7-18); BUN/CREATININE RATIO 19.4 (6.6-38.0); CALCIUM 9.5 MG/DL (8.5-10.1); CHLORIDE 105 MMOL/L (99-107); CREATININE 0.93 MG/DL (0.40-0.90); GLUCOSE 156 MG/DL (70-104); MAGNESIUM 1.8 MG/DL (1.5-2.4); POTASSIUM 3.8 MMOL/L (3.5-5.1); SODIUM 143 MMOL/L (135-145); TOTAL CARBON DIOXIDE 25.4 MMOL/L (24-32); TOTAL PROTEIN 7.9 G/DL (6.4-8.2); eGFR 64 ML/MIN
[2022-03-13] MEDS ORDERED: iohexol 350MG/ML 100ml bottle IV ONE (15:58)
[2022-03-13] MEDS ORDERED: morphine 4 MG/ML inj SYRINge IM ONE (16:30)
[2022-03-13 17:27] LABS: CLARITY,URINE CLEAR (Clear); COLOR,URINE YELLOW (Yellow); GLUCOSE, URINE NEGATIVE (Neg); KETONES,URINE 40 mg/dl (Neg); LEUKOCYTE ESTERASE ,URINE NEGATIVE (Neg); NITRITES, URINE NEGATIVE (Neg); OCCULT BLOOD,URINE NEGATIVE (Neg); PROTEIN,URINE NEGATIVE (Neg); URINE HCG NEGATIVE (NEG); UROBILINOGEN,URINE 0.2 E.U/dL (0.2-1.0)
[2022-03-13 17:29] LABS: UA COLLECTION TYPE CLN CATCH MIDSTREAM
[2022-03-13] MEDS ORDERED: metoclopramide 5 mg/ml inj IV ONE (17:35)
[2022-03-13] MEDS ORDERED: METO5TAB85 PO (17:44)
[2022-03-13 18:02] VITALS: BP 149/55
== END 2022-03-13 18:03 | disposition home or self-care (01) ==
LOC: ER 13:33
DX: R10.84 Generalized abdominal pain (principal); K25.9 Gastric ulcer, unspecified as acute or chronic, without hemorrhage or perforation; R11.2 Nausea with vomiting, unspecified; G89.29 Other chronic pain; F12.90 Cannabis use, unspecified, uncomplicated; Z87.11 Personal history of peptic ulcer disease; Z90.710 Acquired absence of both cervix and uterus; Z88.2 Allergy status to sulfonamides; Z88.1 Allergy status to other antibiotic agents; Z88.8 Allergy status to other drugs, medicaments and biological substances; Z79.899 Other long term (current) drug therapy
CPT/HCPCS: 36415; 74177; 80053; 81003; 81025; 83605; 83735; 84145; 85025; 87040; 93005; 96365; 96372; 96375; 99285; J0696; J2270; J2405; J2765; J3490; J7120; Q9967

== ENCOUNTER 2023-04-25 04:28 | Emergency (ER) | payer MEDICAID ==
[~2023-04-25] VITALS: Ht 160 cm; Wt 92.5 kg
[~2023-04-25 04:28] MED LIST changes: +METO5TAB85 PO
[2023-04-25 04:33] VITALS: TEMP 97.8
[2023-04-25] MEDS ORDERED: ketorolac trometh. 30mg/ml inj. IV STA (06:33)
[2023-04-25] MEDS ORDERED: HYDROcodone/acetaminophen 10/325mg tab PO ONE (06:35)
[2023-04-25] MEDS ORDERED: acetaminophen 325mg tablet PO ONE (06:35)
[2023-04-25] MEDS ORDERED: ondansetron 4mg rapidly disintigrating tab PO ONE (08:35)
[2023-04-25] MEDS ORDERED: HYDROmorphone 1 mg/ml syringe IM ONE (08:35)
[2023-04-25] MEDS ORDERED: OXYC-658 PO ×2 (08:39→09:16)
[2023-04-25] MEDS ORDERED: GABA800T11 PO (09:15)
[2023-04-25 09:51] VITALS: BP 134/92; PULSE 72; RESP 18; O2SAT 97
--- NOTE | 2023-04-25 09:57 | NUR ---
Pt. documentation completed by WEATHER STRIP MECHANIC reviewed and concur with WEATHER STRIP MECHANIC.
== END 2023-04-25 10:03 | disposition home or self-care (01) ==
LOC: ER 04:30
DX: M54.31 Sciatica, right side (principal); G89.29 Other chronic pain; E03.9 Hypothyroidism, unspecified; F17.200 Nicotine dependence, unspecified, uncomplicated; F12.10 Cannabis abuse, uncomplicated; Z79.899 Other long term (current) drug therapy; Z88.2 Allergy status to sulfonamides; Z88.1 Allergy status to other antibiotic agents
CPT/HCPCS: 73502; 96372; 96374; 99284; J1170; J1885

== ENCOUNTER 2023-07-13 15:41 | Emergency (ER) | payer MEDICAID ==
[~2023-07-13] VITALS: Ht 162.6 cm; Wt 90.5 kg
[2023-07-13 16:34] LABS: BASOPHILS # (AUTO) 0.1 X10'3 (0-0.2); BASOPHILS % (AUTO) 1.1 % (0-1); EOSINOPHILS # (AUTO) 0.2 X10'3 (0-0.9); EOSINOPHILS % (AUTO) 3.1 % (0-6); HEMATOCRIT 39.2 % (35.0-45.0); HEMOGLOBIN 13.2 g/dl (12.0-16.0); LYMPHOCYTES % (AUTO) 34.2 % (21-51); MEAN CORPUSCULAR HEMOGLOBIN 29.4 PG (27.0-31.0); MEAN CORPUSCULAR HGB CONC 33.7 g/dL (33.0-36.5); MEAN CORPUSCULAR VOLUME 87.4 FL (78-98); MEAN PLATELET VOLUME 7.8 FL (7.4-10.4); MONOCYTES # (AUTO) 0.3 X10'3 (0-0.9); MONOCYTES % (AUTO) 5.5 % (2-12); NEUTROPHILS # (AUTO) 3.3 X10'3 (1.8-7.7); NEUTROPHILS % (AUTO) 56.1 % (42-75); PLATELET COUNT 245 X10'3 (140-440); RED BLOOD COUNT 4.48 X10'6 (4.20-5.60); RED CELL DISTRIBUTION WIDTH 13.3 % (11.5-14.5); WHITE BLOOD COUNT 5.9 X10'3 (4.5-11.0)
[2023-07-13 16:50] LABS: ALANINE AMINOTRANSFERASE 15 U/L (12-78); ALBUMIN 3.2 G/DL (3.4-5.0); ALBUMIN/GLOBULIN RATIO 0.9 (1.1-1.5); ALKALINE PHOSPHATASE 90 IU/L (46-116); ANION GAP 6 (8-16); ASPARTATE AMINO TRANSFERASE 17 U/L (10-37); BILIRUBIN,TOTAL 0.2 MG/DL (0.1-1.0); BLOOD UREA NITROGEN 12 MG/DL (7-18); BUN/CREATININE RATIO 14.1 (10.0-20.0); CALCIUM 8.5 MG/DL (8.5-10.1); CHLORIDE 105 MMOL/L (99-107); CREATININE 0.85 MG/DL (0.40-0.90); ETHANOL < 10 MG/DL (<10); GLUCOSE 121 MG/DL (70-104); POTASSIUM 3.9 MMOL/L (3.5-5.1); SODIUM 139 MMOL/L (135-145); TOTAL CARBON DIOXIDE 27.6 MMOL/L (24-32); TOTAL PROTEIN 6.8 G/DL (6.4-8.2); eCRCL 67 ML/MIN; eGFR 70 ML/MIN
[2023-07-13 17:55] VITALS: RESP 18
[2023-07-13 18:27] LABS: PRO BRAIN NATRIURETIC PEPTIDE 62 PG/ML (0-125)
[2023-07-13 18:42] LABS: APTT 31 SECONDS (22-32); PROTHROMBIN TIME 10.9 SECONDS (9.0-12.0)
[2023-07-13 19:15] VITALS: BP 111/69; PULSE 86; O2SAT 96
[2023-07-13 19:55] LABS: URINE HCG NEGATIVE (NEG)
[2023-07-13 20:18] VITALS: TEMP 97.8
[2023-07-13 20:19] LABS: URINE AMPHETAMINE SCREEN NEGATIVE (Neg); URINE BARBITUATE SCREEN NEGATIVE (Neg); URINE BENZODIAZEPINES SCREEN POSITIVE (Neg); URINE CANNABINOID SCREEN POSITIVE (Neg); URINE COCAINE SCREEN NEGATIVE (Neg); URINE METHADONE SCREEN NEGATIVE (Neg); URINE OPIATE SCREEN POSITIVE (Neg); URINE PHENCYCLIDINE SCREEN NEGATIVE (Neg)
== END 2023-07-13 20:21 | disposition home or self-care (01) ==
LOC: ER 15:41
DX: R53.1 Weakness (principal); F12.10 Cannabis abuse, uncomplicated; Z79.899 Other long term (current) drug therapy; Z88.2 Allergy status to sulfonamides; Z88.1 Allergy status to other antibiotic agents
CPT/HCPCS: 36415; 70450; 71045; 80053; 80305; 80320; 81025; 83880; 84484; 85025; 85610; 85730; 93005; 99285

== ENCOUNTER 2023-11-23 13:59 | Emergency (ER) | payer MEDICAID ==
[~2023-11-23] VITALS: Ht 165.1 cm; Wt 90.9 kg
[2023-11-23 14:09] VITALS: BP 97/78; PULSE 107; RESP 16; O2SAT 94
[2023-11-23 15:36] VITALS: TEMP 98.9
== END 2023-11-23 15:37 | disposition home or self-care (01) ==
LOC: ER 14:00
DX: S80.01XA Contusion of right knee, initial encounter (principal); F12.90 Cannabis use, unspecified, uncomplicated; Z88.2 Allergy status to sulfonamides; Z88.1 Allergy status to other antibiotic agents; Z79.899 Other long term (current) drug therapy; Z90.710 Acquired absence of both cervix and uterus; W19.XXXA Unspecified fall, initial encounter; Y93.89 Activity, other specified; Y92.89 Other specified places as the place of occurrence of the external cause; Y99.8 Other external cause status
CPT/HCPCS: 73564; 99284

== ENCOUNTER 2024-01-11 13:48 | Emergency (ER) | payer MEDICAID ==
[~2024-01-11] VITALS: Ht 162.6 cm; Wt 90.9 kg
[2024-01-11 14:46] VITALS: BP 158/69; PULSE 77; RESP 17; TEMP 98.3; O2SAT 99
== END 2024-01-11 14:48 | disposition home or self-care (01) ==
LOC: ER 13:49
DX: M79.674 Pain in right toe(s) (principal); M79.89 Other specified soft tissue disorders; F12.90 Cannabis use, unspecified, uncomplicated; G89.29 Other chronic pain; Z88.2 Allergy status to sulfonamides; Z79.899 Other long term (current) drug therapy; Z90.710 Acquired absence of both cervix and uterus
CPT/HCPCS: 73630; 99284

== ENCOUNTER 2024-01-21 13:27 | Emergency (ER) | payer MEDICAID ==
[~2024-01-21] VITALS: Ht 162.6 cm; Wt 89.2 kg
[2024-01-21 13:43] VITALS: BP 139/107; PULSE 109; RESP 48; O2SAT 97
[2024-01-21 14:56] VITALS: TEMP 97.9
== END 2024-01-21 15:01 | disposition home or self-care (01) ==
LOC: ER 13:27
DX: S90.32XA Contusion of left foot, initial encounter (principal); G89.29 Other chronic pain; F12.90 Cannabis use, unspecified, uncomplicated; Z90.710 Acquired absence of both cervix and uterus; Z88.2 Allergy status to sulfonamides; Z79.899 Other long term (current) drug therapy; X58.XXXA Exposure to other specified factors, initial encounter; Y93.89 Activity, other specified; Y92.89 Other specified places as the place of occurrence of the external cause; Y99.8 Other external cause status
CPT/HCPCS: 73610; 73630; 99284

== ENCOUNTER 2024-04-12 11:21 | Emergency (ER) | payer MEDICAID ==
[~2024-04-12] VITALS: Ht 162.6 cm; Wt 87.2 kg
[2024-04-12 12:54] LABS: BILIRUBIN,URINE NEGATIVE (Neg); CLARITY,URINE CLOUDY (Clear); COLOR,URINE YELLOW (Yellow); GLUCOSE, URINE NEGATIVE (Neg); KETONES,URINE NEGATIVE (Neg); LEUKOCYTE ESTERASE ,URINE MODERATE (Neg); NITRITES, URINE NEGATIVE (Neg); OCCULT BLOOD,URINE NEGATIVE (Neg); PROTEIN,URINE NEGATIVE (Neg); UROBILINOGEN,URINE 0.2 E.U/dL (0.2-1.0)
[2024-04-12 12:55] LABS: URINE HCG NEGATIVE (NEG)
[2024-04-12 13:02] LABS: BASOPHILS # (AUTO) 0.1 X10'3 (0-0.2); BASOPHILS % (AUTO) 0.9 % (0-1); EOSINOPHILS # (AUTO) 0.2 X10'3 (0-0.9); EOSINOPHILS % (AUTO) 3.2 % (0-6); HEMATOCRIT 44.8 % (35.0-45.0); HEMOGLOBIN 15.5 g/dl (12.0-16.0); LYMPHOCYTES # (AUTO) 2.2 X10'3 (1.1-4.8); LYMPHOCYTES % (AUTO) 33.6 % (21-51); MEAN CORPUSCULAR HGB CONC 34.6 g/dL (33.0-36.5); MEAN CORPUSCULAR VOLUME 86.7 FL (78-98); MEAN PLATELET VOLUME 8.2 FL (7.4-10.4); MONOCYTES # (AUTO) 0.4 X10'3 (0-0.9); MONOCYTES % (AUTO) 6.6 % (2-12); NEUTROPHILS # (AUTO) 3.6 X10'3 (1.8-7.7); NEUTROPHILS % (AUTO) 55.7 % (42-75); PLATELET COUNT 320 X10'3 (140-440); RED BLOOD COUNT 5.17 X10'6 (4.20-5.60); RED CELL DISTRIBUTION WIDTH 13.5 % (11.5-14.5); WHITE BLOOD COUNT 6.4 X10'3 (4.5-11.0)
[2024-04-12 13:31] LABS: UA COLLECTION TYPE NON-SPECIFIED
[2024-04-12 13:32] LABS: SQUAMOUS EPITHELIAL CELL,UR MANY /LPF (FEW)
[2024-04-12 13:33] LABS: ALANINE AMINOTRANSFERASE 34 U/L (12-78); ALBUMIN 3.8 G/DL (3.4-5.0); ALBUMIN/GLOBULIN RATIO 0.9 (1.1-1.5); ALKALINE PHOSPHATASE 124 IU/L (46-116); ANION GAP 10 (8-16); ASPARTATE AMINO TRANSFERASE 31 U/L (10-37); BILIRUBIN,TOTAL 0.3 MG/DL (0.1-1.0); BLOOD UREA NITROGEN 11 MG/DL (7-18); BUN/CREATININE RATIO 11.7 (10.0-20.0); CALCIUM 9.4 MG/DL (8.5-10.1); CHLORIDE 105 MMOL/L (99-107); CREATININE 0.94 MG/DL (0.40-0.90); GLUCOSE 100 MG/DL (70-104); LIPASE 46 U/L (16-77); POTASSIUM 4.3 MMOL/L (3.5-5.1); SODIUM 139 MMOL/L (135-145); TOTAL CARBON DIOXIDE 23.6 MMOL/L (24-32); eCRCL 60 ML/MIN; eGFR 63 ML/MIN
[2024-04-12 13:33] LABS: BACTERIA,URINE 2+ /HPF (Neg); RBC,URINE 0-2 /HPF (0-2); WBC,URINE 20-30 /HPF (0-4)
[2024-04-12] MEDS: normal saline 1000ML IV soln IVB ONE (15:17)
[2024-04-12] MEDS: morphine 4 MG/ML inj SYRINge IV ONE (15:17)
[2024-04-12] MEDS: proCHLORperazine 10 MG/2 ml inj IV ONE (15:17)
[2024-04-12 16:39] VITALS: BP 136/74; PULSE 65; RESP 15; TEMP 97.8; O2SAT 98
== END 2024-04-12 16:40 | disposition home or self-care (01) ==
LOC: ER 11:21
DX: R10.10 Upper abdominal pain, unspecified (principal); R19.7 Diarrhea, unspecified; M79.7 Fibromyalgia; E07.9 Disorder of thyroid, unspecified; G89.29 Other chronic pain; F12.90 Cannabis use, unspecified, uncomplicated; Z88.2 Allergy status to sulfonamides; Z88.1 Allergy status to other antibiotic agents; Z88.8 Allergy status to other drugs, medicaments and biological substances; Z79.899 Other long term (current) drug therapy; Z90.710 Acquired absence of both cervix and uterus
CPT/HCPCS: 36415; 74176; 80053; 81001; 81025; 83690; 85025; 96361; 96374; 96375; 99285; J0780; J2270; J7030

== ENCOUNTER 2024-05-06 11:28 | Inpatient (IN) | payer MEDICAID ==
[~2024-05-06] VITALS: Ht 162.6 cm; Wt 82.0 kg
[~2024-05-06 11:28] MED LIST changes: +GABA-1555 PO; -GABA800T11 PO
[2024-05-06] MEDS: acetaminophen 325mg tablet PO ONE ×2 (12:42→12:57)
[2024-05-06] MEDS: normal saline 1000ML IV soln IV ONE (12:58)
[2024-05-06] MEDS: HYDROmorphone 1 mg/ml syringe IV ONE ×3 (12:59→17:02)
[2024-05-06] MEDS: ondansetron/PF 4mg/2ml inj IV ONE (13:01)
[2024-05-06 13:22] LABS: BASOPHILS # (AUTO) 0.1 X10'3 (0-0.2); BASOPHILS % (AUTO) 0.3 % (0-1); EOSINOPHILS % (AUTO) 0 % (0-6); HEMATOCRIT 40.5 % (35.0-45.0); HEMOGLOBIN 13.9 g/dl (12.0-16.0); LYMPHOCYTES # (AUTO) 0.5 X10'3 (1.1-4.8); LYMPHOCYTES % (AUTO) 2.5 % (21-51); MEAN CORPUSCULAR HEMOGLOBIN 29.4 PG (27.0-31.0); MEAN CORPUSCULAR HGB CONC 34.2 g/dL (33.0-36.5); MEAN CORPUSCULAR VOLUME 86.1 FL (78-98); MEAN PLATELET VOLUME 8.2 FL (7.4-10.4); MONOCYTES # (AUTO) 0.9 X10'3 (0-0.9); MONOCYTES % (AUTO) 4.9 % (2-12); NEUTROPHILS # (AUTO) 17.1 X10'3 (1.8-7.7); NEUTROPHILS % (AUTO) 92.3 % (42-75); PLATELET COUNT 260 X10'3 (140-440); RED BLOOD COUNT 4.71 X10'6 (4.20-5.60); RED CELL DISTRIBUTION WIDTH 13.1 % (11.5-14.5); WHITE BLOOD COUNT 18.5 X10'3 (4.5-11.0)
[2024-05-06 13:26] LABS: MAGNESIUM 1.6 MG/DL (1.5-2.4)
[2024-05-06] MEDS: acetaminophen 1,000mg/100ml IV 100 ML IV SCH ×2 (13:52→20:22)
[2024-05-06 13:54] LABS: URINE HCG NEGATIVE (NEG)
[2024-05-06 13:58] LABS: BILIRUBIN,URINE NEGATIVE (Neg); CLARITY,URINE CLEAR (Clear); COLOR,URINE YELLOW (Yellow); GLUCOSE, URINE NEGATIVE (Neg); KETONES,URINE TRACE mg/dl (Neg); LEUKOCYTE ESTERASE ,URINE NEGATIVE (Neg); NITRITES, URINE NEGATIVE (Neg); OCCULT BLOOD,URINE SMALL (Neg); PH,URINE 5.5 (4.8-8.0); PROTEIN,URINE NEGATIVE (Neg)
[2024-05-06] MEDS: acetaminophen 1,000mg/100ml IV 100 ML IV ONE ×2 (13:58→22:34)
[2024-05-06] MEDS ORDERED: acetaminophen 1,000mg/100ml IV 100 ML IV SCH (14:00)
[2024-05-06 14:05] LABS: UA COLLECTION TYPE FOLEY CATH
[2024-05-06 14:07] LABS: SQUAMOUS EPITHELIAL CELL,UR FEW /LPF (FEW)
[2024-05-06 14:08] LABS: BACTERIA,URINE NONE SEEN /HPF (Neg); WBC,URINE 0-4 /HPF (0-4)
[2024-05-06] MEDS: piperacillin/tazo 3.375gm/50ml 50 ML IV ONE (14:45)
[2024-05-06 16:49] LABS: ALANINE AMINOTRANSFERASE 36 U/L (12-78); ALBUMIN 3.5 G/DL (3.4-5.0); ALBUMIN/GLOBULIN RATIO 0.8 (1.1-1.5); ALKALINE PHOSPHATASE 125 IU/L (46-116); ANION GAP 12 (8-16); ASPARTATE AMINO TRANSFERASE 37 U/L (10-37); BILIRUBIN,TOTAL 1.1 MG/DL (0.1-1.0); BLOOD UREA NITROGEN 7 MG/DL (7-18); CALCIUM 8.8 MG/DL (8.5-10.1); CHLORIDE 97 MMOL/L (99-107); GLUCOSE 119 MG/DL (70-104); POTASSIUM 3.6 MMOL/L (3.5-5.1); SODIUM 133 MMOL/L (135-145); TOTAL CARBON DIOXIDE 24.3 MMOL/L (24-32); TOTAL PROTEIN 7.8 G/DL (6.4-8.2); eCRCL 56 ML/MIN; eGFR 58 ML/MIN
[2024-05-06] MEDS ORDERED: mag hydrox/Alum hydrox/simeth 30ml oral suspension PO PRN (17:00)
[2024-05-06] MEDS ORDERED: magnesium sulf-water 2g/50mL 50 ML IV PRN (17:00)
[2024-05-06] MEDS ORDERED: magnesium sulf-water 4G/100mL 100 ML IV PRN (17:00)
[2024-05-06] MEDS ORDERED: potassium Cl 20 mEq SR tablet PO PRN (17:00)
[2024-05-06] MEDS ORDERED: potassium Cl 40MEQ/1/2NS 520ml 520 ML IV PRN (17:00)
[2024-05-06] MEDS ORDERED: TIZA-205 PO (17:14)
[2024-05-06] MEDS ORDERED: DESV100T16 PO (17:14)
[2024-05-06] MEDS ORDERED: HYDR-3972 PO (17:14)
[2024-05-06] MEDS ORDERED: CLON1TAB13 PO (17:14)
[2024-05-06] MEDS ORDERED: FLUT16SP26 IH (17:14)
[2024-05-06] MEDS ORDERED: HYDR-3686 PO (17:14)
[2024-05-06] MEDS: VANCOMYCIN 1.75GM/WATER FOR INJ (PEG) 350 ML IVPB IV ONE (17:58)
[2024-05-06] MEDS: normal saline 1000ml 1,000 ML IV SCH (17:58)
[2024-05-06] MEDS: K and/or MAG REPLACEMENT MC SCH (20:00)
[2024-05-06] MEDS: docusate sod 100mg capsule PO SCH (20:23)
[2024-05-06] MEDS: nicotine 14mg patch - 24hr TD ONE (20:23)
[2024-05-06] MEDS: enoxaparin 40mg/0.4ml syringe SQ SCH (20:23)
[2024-05-06] MEDS ORDERED: ibuprofen tablet 400 MG TABLET PO ONE (21:45)
[2024-05-06] MEDS: ibuprofen 200mg tablet PO ONE (21:57)
[2024-05-06] MEDS: piperacillin/tazo 3.375gm/50ml 50 ML IV SCH (22:04)
[2024-05-06] MEDS: HYDROmorphone/PF 0.2 MG/ML SYRINGE IV PRN (22:12)
[2024-05-06] MEDS: diphenhydrAMINE 50 mg/ml inj IV ONE (23:17)
[2024-05-07] MEDS: normal saline 1000ml 1,000 ML IV ONE (05:45)
[2024-05-07] MEDS: ondansetron/PF 4mg/2ml inj IV PRN (07:01)
[2024-05-07] MEDS: HYDROmorphone inj. 0.5 MG/0.5 ML DISP.SYRIN IV PRN (07:01)
[2024-05-07] MEDS ORDERED: ketorolac trometh 15mg/ml vial 15 MG/ML ML IV ONE (07:30)
[2024-05-07] MEDS ORDERED: VANCOMYCIN 1GM 200ML H20 (PEG) 200 ML IV SCH (08:00)
[2024-05-07] MEDS: ketorolac trometh 30MG/ML vial 30 MG/ML VIAL IV ONE (08:10)
[2024-05-07 08:30] LABS: ALANINE AMINOTRANSFERASE 26 U/L (12-78); ALBUMIN 2.4 G/DL (3.4-5.0); ALBUMIN/GLOBULIN RATIO 0.6 (1.1-1.5); ALKALINE PHOSPHATASE 102 IU/L (46-116); ANION GAP 6 (8-16); ASPARTATE AMINO TRANSFERASE 24 U/L (10-37); BILIRUBIN,TOTAL 0.5 MG/DL (0.1-1.0); BLOOD UREA NITROGEN 5 MG/DL (7-18); BUN/CREATININE RATIO 6.3 (10.0-20.0); CALCIUM 7.6 MG/DL (8.5-10.1); CHLORIDE 106 MMOL/L (99-107); GLUCOSE 119 MG/DL (70-104); MAGNESIUM 1.7 MG/DL (1.5-2.4); POTASSIUM 3.4 MMOL/L (3.5-5.1); SODIUM 136 MMOL/L (135-145); TOTAL PROTEIN 6.1 G/DL (6.4-8.2); eCRCL 70 ML/MIN; eGFR 75 ML/MIN
[2024-05-07 08:44] LABS: BASOPHILS % (AUTO) 0.4 % (0-1); EOSINOPHILS # (AUTO) 0.1 X10'3 (0-0.9); EOSINOPHILS % (AUTO) 0.5 % (0-6); HEMATOCRIT 34.8 % (35.0-45.0); HEMOGLOBIN 11.6 g/dl (12.0-16.0); LYMPHOCYTES # (AUTO) 0.9 X10'3 (1.1-4.8); LYMPHOCYTES % (AUTO) 7.9 % (21-51); MEAN CORPUSCULAR HGB CONC 33.4 g/dL (33.0-36.5); MEAN CORPUSCULAR VOLUME 86.8 FL (78-98); MEAN PLATELET VOLUME 8.5 FL (7.4-10.4); MONOCYTES # (AUTO) 0.6 X10'3 (0-0.9); MONOCYTES % (AUTO) 5.4 % (2-12); NEUTROPHILS # (AUTO) 9.7 X10'3 (1.8-7.7); NEUTROPHILS % (AUTO) 85.8 % (42-75); PLATELET COUNT 180 X10'3 (140-440); RED BLOOD COUNT 4.01 X10'6 (4.20-5.60); RED CELL DISTRIBUTION WIDTH 13.1 % (11.5-14.5); WHITE BLOOD COUNT 11.3 X10'3 (4.5-11.0)
[2024-05-07] MEDS ORDERED: HYDROmorphone inj. 0.5 MG/0.5 ML DISP.SYRIN IV PRN (09:05)
[2024-05-07] MEDS: VANCOMYCIN 1GM 200ML H20 (PEG) 200 ML IV SCH (09:44)
[2024-05-07 12:37] VITALS: BP 100/53; PULSE 87; RESP 16; TEMP 98.1; O2SAT 95
[2024-05-07] MEDS: ketorolac trometh 30MG/ML vial 30 MG/ML VIAL IV PRN (13:51)
[2024-05-07] MEDS: clonazePAM 1mg tablet PO PRN (17:41)
[2024-05-07 19:00] VITALS: BP 149/79; PULSE 94; RESP 20; TEMP 98; O2SAT 99
[2024-05-07] MEDS: tizanidine 4mg tablet PO SCH (21:15)
[2024-05-07] MEDS: gabapentin 400mg capsule PO SCH (21:15)
[2024-05-07 22:00] VITALS: BP 133/70; PULSE 86; RESP 18; TEMP 98; O2SAT 97
[2024-05-07 22:25] VITALS: RESP 16; O2SAT 98
[2024-05-08] MEDS: baclofen 10mg tablet PO PRN (01:27)
[2024-05-08] MEDS: acetaminophen 325mg tablet PO PRN (01:27)
[2024-05-08] MEDS: oxyCODONE/APAP 10/325mg tablet PO PRN (02:43)
[2024-05-08 06:00] VITALS: BP 157/74; PULSE 91; RESP 17; TEMP 98; O2SAT 91
[2024-05-08 08:00] VITALS: RESP 16; O2SAT 96
[2024-05-08] MEDS: VANCOMYCIN LEVEL IV ONE (08:30)
[2024-05-08 08:34] LABS: ALANINE AMINOTRANSFERASE 28 U/L (12-78); ALBUMIN 2.2 G/DL (3.4-5.0); ALBUMIN/GLOBULIN RATIO 0.5 (1.1-1.5); ALKALINE PHOSPHATASE 140 IU/L (46-116); ANION GAP 11 (8-16); ASPARTATE AMINO TRANSFERASE 29 U/L (10-37); BILIRUBIN,TOTAL 0.5 MG/DL (0.1-1.0); BLOOD UREA NITROGEN 4 MG/DL (7-18); BUN/CREATININE RATIO 5.6 (10.0-20.0); CALCIUM 8.3 MG/DL (8.5-10.1); CHLORIDE 111 MMOL/L (99-107); CREATININE 0.72 MG/DL (0.40-0.90); GLUCOSE 94 MG/DL (70-104); MAGNESIUM 1.9 MG/DL (1.5-2.4); POTASSIUM 3.6 MMOL/L (3.5-5.1); SODIUM 142 MMOL/L (135-145); TOTAL CARBON DIOXIDE 20.5 MMOL/L (24-32); TOTAL PROTEIN 6.8 G/DL (6.4-8.2); eCRCL 78 ML/MIN; eGFR 85 ML/MIN
[2024-05-08 08:41] LABS: BASOPHILS % (AUTO) 0.4 % (0-1); EOSINOPHILS # (AUTO) 0.3 X10'3 (0-0.9); EOSINOPHILS % (AUTO) 2.5 % (0-6); HEMATOCRIT 38.4 % (35.0-45.0); HEMOGLOBIN 12.7 g/dl (12.0-16.0); LYMPHOCYTES # (AUTO) 1.3 X10'3 (1.1-4.8); LYMPHOCYTES % (AUTO) 12.5 % (21-51); MEAN CORPUSCULAR HEMOGLOBIN 29.2 PG (27.0-31.0); MEAN CORPUSCULAR HGB CONC 33.1 g/dL (33.0-36.5); MEAN CORPUSCULAR VOLUME 88.3 FL (78-98); MEAN PLATELET VOLUME 8.2 FL (7.4-10.4); MONOCYTES # (AUTO) 0.8 X10'3 (0-0.9); MONOCYTES % (AUTO) 7.4 % (2-12); NEUTROPHILS # (AUTO) 8.1 X10'3 (1.8-7.7); NEUTROPHILS % (AUTO) 77.2 % (42-75); PLATELET COUNT 200 X10'3 (140-440); RED BLOOD COUNT 4.35 X10'6 (4.20-5.60); RED CELL DISTRIBUTION WIDTH 13.4 % (11.5-14.5); WHITE BLOOD COUNT 10.5 X10'3 (4.5-11.0)
[2024-05-08] MEDS: HYDROmorphone 1 mg/ml syringe IV PRN (09:56)
[2024-05-08] MEDS: metoprolol succinate 25mg (24-HOUR) SR. Tablet PO SCH (09:58)
[2024-05-08] MEDS: citalopram 20mg tablet PO SCH (09:59)
[2024-05-08 10:00] VITALS: BP 150/83; PULSE 104; RESP 16; TEMP 98.8; O2SAT 96
[2024-05-08 18:00] VITALS: BP 144/75; PULSE 96; RESP 15; TEMP 97.9; O2SAT 94
[2024-05-08 19:00] VITALS: TEMP 99.2
[2024-05-08] MEDS: pantoprazole 40mg Tablet.DR PO SCH (19:10)
[2024-05-08 22:00] VITALS: BP 176/73; PULSE 90; RESP 18; TEMP 99.5; O2SAT 97
[2024-05-09 07:18] LABS: BASOPHILS # (AUTO) 0.1 X10'3 (0-0.2); BASOPHILS % (AUTO) 0.5 % (0-1); EOSINOPHILS # (AUTO) 0.1 X10'3 (0-0.9); EOSINOPHILS % (AUTO) 0.7 % (0-6); HEMATOCRIT 32.4 % (35.0-45.0); HEMOGLOBIN 11.3 g/dl (12.0-16.0); LYMPHOCYTES % (AUTO) 18.4 % (21-51); MEAN CORPUSCULAR HEMOGLOBIN 29.7 PG (27.0-31.0); MEAN CORPUSCULAR HGB CONC 34.8 g/dL (33.0-36.5); MEAN CORPUSCULAR VOLUME 85.3 FL (78-98); MEAN PLATELET VOLUME 8.3 FL (7.4-10.4); MONOCYTES # (AUTO) 0.7 X10'3 (0-0.9); MONOCYTES % (AUTO) 6.7 % (2-12); NEUTROPHILS # (AUTO) 8.1 X10'3 (1.8-7.7); NEUTROPHILS % (AUTO) 73.7 % (42-75); PLATELET COUNT 234 X10'3 (140-440); RED CELL DISTRIBUTION WIDTH 13.1 % (11.5-14.5); WHITE BLOOD COUNT 10.9 X10'3 (4.5-11.0)
[2024-05-09 07:46] LABS: ALANINE AMINOTRANSFERASE 28 U/L (12-78); ALBUMIN 2.4 G/DL (3.4-5.0); ALBUMIN/GLOBULIN RATIO 0.6 (1.1-1.5); ALKALINE PHOSPHATASE 155 IU/L (46-116); ANION GAP 7 (8-16); ASPARTATE AMINO TRANSFERASE 24 U/L (10-37); BILIRUBIN,TOTAL 0.9 MG/DL (0.1-1.0); BLOOD UREA NITROGEN 4 MG/DL (7-18); BUN/CREATININE RATIO 6.1 (10.0-20.0); CALCIUM 8.1 MG/DL (8.5-10.1); CHLORIDE 106 MMOL/L (99-107); CREATININE 0.66 MG/DL (0.40-0.90); GLUCOSE 108 MG/DL (70-104); MAGNESIUM 1.7 MG/DL (1.5-2.4); POTASSIUM 3.1 MMOL/L (3.5-5.1); SODIUM 138 MMOL/L (135-145); TOTAL CARBON DIOXIDE 25.3 MMOL/L (24-32); TOTAL PROTEIN 6.3 G/DL (6.4-8.2); eCRCL 85 ML/MIN; eGFR > 90 ML/MIN
[2024-05-09 08:00] VITALS: RESP 15; O2SAT 95
[2024-05-09] MEDS: DESVENLAFAXINE SUCCINATE 100 MG PO SCH (08:00)
[2024-05-09 08:12] LABS: HIV ANTIBODY 1&2 RAPID NON-REACTIVE (Neg)
[2024-05-09] MEDS: potassium Cl 20 mEq SR tablet PO PRN ×2 (09:02→21:51)
[2024-05-09] MEDS: CefTRIAXone 2gm/D5W 50ml BAG 50 ML IV SCH (09:03)
[2024-05-09 10:00] VITALS: BP 149/80; PULSE 94; RESP 15; TEMP 100.6; O2SAT 96
[2024-05-09] MEDS: nicotine 14mg patch - 24hr TD SCH (12:17)
[2024-05-09] MEDS ORDERED: LIDOcaine 5% patch TP SCH (17:00)
[2024-05-09 18:00] VITALS: BP 120/67; PULSE 83; RESP 16; TEMP 97.4; O2SAT 98
[2024-05-09] MEDS: LIDOcaine 5% patch TP SCH (19:18)
[2024-05-09 20:00] VITALS: RESP 15; O2SAT 96
[2024-05-09] MEDS ORDERED: CLON1TAB13 PO (20:11)
[2024-05-09] MEDS ORDERED: potassium Cl 40MEQ/1/2NS 520ml 520 ML IV PRN (21:05)
[2024-05-09] MEDS ORDERED: magnesium sulf-water 2g/50mL 50 ML IV PRN (21:05)
[2024-05-09] MEDS ORDERED: magnesium sulf-water 4G/100mL 100 ML IV PRN (21:05)
[2024-05-09] MEDS ORDERED: magnesium Cl slow-release 64mg tablet PO PRN (21:05)
[2024-05-09] MEDS: clonazePAM 1mg tablet PO PRN (21:51)
[2024-05-09 22:00] VITALS: BP 146/64; PULSE 86; RESP 15; TEMP 98.1; O2SAT 96
[2024-05-09] MEDS: temazepam 15mg capsule PO ONE (23:25)
[2024-05-10 07:31] VITALS: BP 123/65; PULSE 66; RESP 18; TEMP 98.5; O2SAT 97
[2024-05-10 07:31] LABS: BASOPHILS # (AUTO) 0.1 X10'3 (0-0.2); BASOPHILS % (AUTO) 0.6 % (0-1); EOSINOPHILS # (AUTO) 0.3 X10'3 (0-0.9); EOSINOPHILS % (AUTO) 2.9 % (0-6); HEMATOCRIT 31.5 % (35.0-45.0); HEMOGLOBIN 10.9 g/dl (12.0-16.0); LYMPHOCYTES # (AUTO) 2.5 X10'3 (1.1-4.8); LYMPHOCYTES % (AUTO) 26.7 % (21-51); MEAN CORPUSCULAR HEMOGLOBIN 29.7 PG (27.0-31.0); MEAN CORPUSCULAR HGB CONC 34.7 g/dL (33.0-36.5); MEAN CORPUSCULAR VOLUME 85.6 FL (78-98); MEAN PLATELET VOLUME 8.7 FL (7.4-10.4); MONOCYTES # (AUTO) 0.9 X10'3 (0-0.9); MONOCYTES % (AUTO) 10.2 % (2-12); NEUTROPHILS # (AUTO) 5.5 X10'3 (1.8-7.7); NEUTROPHILS % (AUTO) 59.6 % (42-75); PLATELET COUNT 246 X10'3 (140-440); RED BLOOD COUNT 3.68 X10'6 (4.20-5.60); RED CELL DISTRIBUTION WIDTH 12.9 % (11.5-14.5); WHITE BLOOD COUNT 9.2 X10'3 (4.5-11.0)
[2024-05-10 07:52] LABS: ALANINE AMINOTRANSFERASE 25 U/L (12-78); ALBUMIN 2.2 G/DL (3.4-5.0); ALBUMIN/GLOBULIN RATIO 0.5 (1.1-1.5); ALKALINE PHOSPHATASE 180 IU/L (46-116); ANION GAP 5 (8-16); ASPARTATE AMINO TRANSFERASE 23 U/L (10-37); BILIRUBIN,TOTAL 0.6 MG/DL (0.1-1.0); BLOOD UREA NITROGEN 5 MG/DL (7-18); BUN/CREATININE RATIO 7.2 (10.0-20.0); CALCIUM 8.2 MG/DL (8.5-10.1); CHLORIDE 108 MMOL/L (99-107); CREATININE 0.69 MG/DL (0.40-0.90); GLUCOSE 101 MG/DL (70-104); MAGNESIUM 1.7 MG/DL (1.5-2.4); POTASSIUM 3.3 MMOL/L (3.5-5.1); SODIUM 139 MMOL/L (135-145); TOTAL CARBON DIOXIDE 25.7 MMOL/L (24-32); TOTAL PROTEIN 6.3 G/DL (6.4-8.2); eCRCL 81 ML/MIN; eGFR 89 ML/MIN
[2024-05-10 08:00] VITALS: RESP 15
[2024-05-10] MEDS: K and/or MAG REPLACEMENT MC SCH (08:00)
[2024-05-10] MEDS ORDERED: DESVENLAFAXINE SUCCINATE 100 MG PO SCH ×2 (08:45→08:56)
[2024-05-10 09:27] LABS: IMMUNOGLOBULIN A, QN, SERUM 280 mg/dL (87-352); IMMUNOGLOBULIN G, QN, SERUM 923 mg/dL (586-1602); IMMUNOGLOBULIN M, QN, SERUM 92 mg/dL (26-217)
[2024-05-10] MEDS: DESVENLAFAXINE SUCCINATE 100 MG PO SCH (09:40)
[2024-05-10] MEDS ORDERED: iohexol 300mg/ml 100ml inj. ONE (10:31)
[2024-05-10 18:00] VITALS: BP 141/92; PULSE 104; RESP 20; TEMP 99; O2SAT 98
[2024-05-10 20:00] VITALS: RESP 20; O2SAT 98
[2024-05-10 22:00] VITALS: BP 108/67; PULSE 77; RESP 16; TEMP 99.5; O2SAT 97
[2024-05-11 06:00] VITALS: BP 139/77; PULSE 91; RESP 16; TEMP 99; O2SAT 93
[2024-05-11 07:20] LABS: ALANINE AMINOTRANSFERASE 20 U/L (12-78); ALBUMIN 2.4 G/DL (3.4-5.0); ALBUMIN/GLOBULIN RATIO 0.5 (1.1-1.5); ALKALINE PHOSPHATASE 148 IU/L (46-116); ANION GAP 8 (8-16); ASPARTATE AMINO TRANSFERASE 16 U/L (10-37); BILIRUBIN,TOTAL 0.4 MG/DL (0.1-1.0); BLOOD UREA NITROGEN 4 MG/DL (7-18); CALCIUM 8.4 MG/DL (8.5-10.1); CHLORIDE 105 MMOL/L (99-107); CREATININE 0.67 MG/DL (0.40-0.90); GLUCOSE 107 MG/DL (70-104); MAGNESIUM 1.7 MG/DL (1.5-2.4); POTASSIUM 3.6 MMOL/L (3.5-5.1); SODIUM 139 MMOL/L (135-145); TOTAL CARBON DIOXIDE 26.2 MMOL/L (24-32); TOTAL PROTEIN 6.8 G/DL (6.4-8.2); eCRCL 84 ML/MIN; eGFR > 90 ML/MIN
[2024-05-11 07:22] LABS: BASOPHILS # (AUTO) 0.1 X10'3 (0-0.2); BASOPHILS % (AUTO) 0.7 % (0-1); EOSINOPHILS # (AUTO) 0.3 X10'3 (0-0.9); EOSINOPHILS % (AUTO) 3.5 % (0-6); HEMOGLOBIN 10.8 g/dl (12.0-16.0); LYMPHOCYTES # (AUTO) 2.4 X10'3 (1.1-4.8); LYMPHOCYTES % (AUTO) 28.8 % (21-51); MEAN CORPUSCULAR HEMOGLOBIN 28.7 PG (27.0-31.0); MEAN CORPUSCULAR HGB CONC 33.9 g/dL (33.0-36.5); MEAN CORPUSCULAR VOLUME 84.6 FL (78-98); MEAN PLATELET VOLUME 8.1 FL (7.4-10.4); MONOCYTES % (AUTO) 12.1 % (2-12); NEUTROPHILS # (AUTO) 4.5 X10'3 (1.8-7.7); NEUTROPHILS % (AUTO) 54.9 % (42-75); PLATELET COUNT 272 X10'3 (140-440); RED BLOOD COUNT 3.78 X10'6 (4.20-5.60); RED CELL DISTRIBUTION WIDTH 13.2 % (11.5-14.5); WHITE BLOOD COUNT 8.3 X10'3 (4.5-11.0)
[2024-05-11 08:00] VITALS: RESP 14; O2SAT 98
[2024-05-11 10:00] VITALS: BP 114/61; PULSE 74; RESP 15; TEMP 98.2; O2SAT 96
[2024-05-11 18:50] VITALS: BP 117/68; PULSE 86; RESP 14; TEMP 98.5; O2SAT 94
[2024-05-11] MEDS: bacitracin 15gm ointment TP SCH (20:10)
[2024-05-11 22:00] VITALS: BP 123/70; PULSE 95; RESP 17; TEMP 99.5; O2SAT 95
[2024-05-12 06:00] VITALS: BP 138/72; PULSE 93; RESP 18; TEMP 98.6; O2SAT 96
[2024-05-12 07:25] LABS: BASOPHILS # (AUTO) 0.1 X10'3 (0-0.2); BASOPHILS % (AUTO) 0.7 % (0-1); EOSINOPHILS # (AUTO) 0.3 X10'3 (0-0.9); EOSINOPHILS % (AUTO) 3.5 % (0-6); HEMATOCRIT 32.2 % (35.0-45.0); LYMPHOCYTES # (AUTO) 2.1 X10'3 (1.1-4.8); LYMPHOCYTES % (AUTO) 24.3 % (21-51); MEAN CORPUSCULAR HEMOGLOBIN 29.3 PG (27.0-31.0); MEAN CORPUSCULAR HGB CONC 34.3 g/dL (33.0-36.5); MEAN CORPUSCULAR VOLUME 85.4 FL (78-98); MEAN PLATELET VOLUME 8.3 FL (7.4-10.4); MONOCYTES % (AUTO) 11.7 % (2-12); NEUTROPHILS # (AUTO) 5.2 X10'3 (1.8-7.7); NEUTROPHILS % (AUTO) 59.8 % (42-75); PLATELET COUNT 320 X10'3 (140-440); RED BLOOD COUNT 3.77 X10'6 (4.20-5.60); RED CELL DISTRIBUTION WIDTH 13.3 % (11.5-14.5); WHITE BLOOD COUNT 8.7 X10'3 (4.5-11.0)
[2024-05-12 07:51] LABS: ALANINE AMINOTRANSFERASE 16 U/L (12-78); ALBUMIN 2.3 G/DL (3.4-5.0); ALBUMIN/GLOBULIN RATIO 0.5 (1.1-1.5); ALKALINE PHOSPHATASE 145 IU/L (46-116); ANION GAP 8 (8-16); ASPARTATE AMINO TRANSFERASE 14 U/L (10-37); BILIRUBIN,TOTAL 0.3 MG/DL (0.1-1.0); BLOOD UREA NITROGEN 10 MG/DL (7-18); BUN/CREATININE RATIO 15.4 (10.0-20.0); CALCIUM 8.2 MG/DL (8.5-10.1); CHLORIDE 103 MMOL/L (99-107); CREATININE 0.65 MG/DL (0.40-0.90); GLUCOSE 99 MG/DL (70-104); POTASSIUM 3.4 MMOL/L (3.5-5.1); SODIUM 137 MMOL/L (135-145); TOTAL CARBON DIOXIDE 26.2 MMOL/L (24-32); TOTAL PROTEIN 6.7 G/DL (6.4-8.2); eCRCL 86 ML/MIN; eGFR > 90 ML/MIN
[2024-05-12 08:00] VITALS: RESP 14; O2SAT 94
[2024-05-12] MEDS: potassium Cl 20 mEq SR tablet PO PRN (09:00)
[2024-05-12 10:00] VITALS: BP 149/72; PULSE 84; RESP 18; TEMP 98.6; O2SAT 94
[2024-05-12 18:00] VITALS: BP 157/78; PULSE 101; RESP 20; TEMP 99.1; O2SAT 98
[2024-05-12] MEDS: Melatonin 3mg tablet PO ONE (20:20)
[2024-05-12 22:00] VITALS: BP 125/59; PULSE 88; RESP 16; TEMP 98.8; O2SAT 94
[2024-05-13 04:38] LABS: BASOPHILS # (AUTO) 0.1 X10'3 (0-0.2); BASOPHILS % (AUTO) 0.7 % (0-1); EOSINOPHILS # (AUTO) 0.2 X10'3 (0-0.9); EOSINOPHILS % (AUTO) 1.9 % (0-6); HEMATOCRIT 32.2 % (35.0-45.0); HEMOGLOBIN 10.7 g/dl (12.0-16.0); LYMPHOCYTES # (AUTO) 2.2 X10'3 (1.1-4.8); LYMPHOCYTES % (AUTO) 20.4 % (21-51); MEAN CORPUSCULAR HEMOGLOBIN 28.3 PG (27.0-31.0); MEAN CORPUSCULAR HGB CONC 33.3 g/dL (33.0-36.5); MEAN CORPUSCULAR VOLUME 84.9 FL (78-98); MEAN PLATELET VOLUME 7.6 FL (7.4-10.4); MONOCYTES # (AUTO) 1.2 X10'3 (0-0.9); MONOCYTES % (AUTO) 11.2 % (2-12); NEUTROPHILS # (AUTO) 7.1 X10'3 (1.8-7.7); NEUTROPHILS % (AUTO) 65.8 % (42-75); PLATELET COUNT 338 X10'3 (140-440); RED BLOOD COUNT 3.79 X10'6 (4.20-5.60); RED CELL DISTRIBUTION WIDTH 13.6 % (11.5-14.5); WHITE BLOOD COUNT 10.7 X10'3 (4.5-11.0)
[2024-05-13 04:59] LABS: ALANINE AMINOTRANSFERASE 16 U/L (12-78); ALBUMIN 2.5 G/DL (3.4-5.0); ALBUMIN/GLOBULIN RATIO 0.5 (1.1-1.5); ALKALINE PHOSPHATASE 161 IU/L (46-116); ANION GAP 7 (8-16); ASPARTATE AMINO TRANSFERASE 18 U/L (10-37); BILIRUBIN,TOTAL 0.4 MG/DL (0.1-1.0); BLOOD UREA NITROGEN 9 MG/DL (7-18); CALCIUM 8.8 MG/DL (8.5-10.1); CHLORIDE 102 MMOL/L (99-107); CREATININE 0.69 MG/DL (0.40-0.90); GLUCOSE 120 MG/DL (70-104); MAGNESIUM 1.9 MG/DL (1.5-2.4); POTASSIUM 4.1 MMOL/L (3.5-5.1); SODIUM 137 MMOL/L (135-145); TOTAL PROTEIN 7.1 G/DL (6.4-8.2); eCRCL 81 ML/MIN; eGFR 89 ML/MIN
[2024-05-13] MEDS: lactose-reduced food (Ensure Enlive) - 237ml bottle PO SCH (08:00)
[2024-05-13 11:16] VITALS: BP 116/62; PULSE 82; RESP 16; O2SAT 90
[2024-05-13] MEDS: gabapentin 400mg capsule PO SCH (15:25)
[2024-05-13 18:00] VITALS: BP 106/69; PULSE 107; RESP 18; TEMP 98.6; O2SAT 97
[2024-05-13 20:00] VITALS: RESP 18; O2SAT 96
[2024-05-13] MEDS: nortriptyline 10mg capsule PO SCH (20:13)
[2024-05-13 22:00] VITALS: BP 89/49; PULSE 90; RESP 16; TEMP 97.6; O2SAT 96
[2024-05-14 06:00] VITALS: BP 145/97; PULSE 110; RESP 15; TEMP 96.9; O2SAT 96
[2024-05-14 06:14] LABS: BASOPHILS # (AUTO) 0.1 X10'3 (0-0.2); EOSINOPHILS # (AUTO) 0.3 X10'3 (0-0.9); EOSINOPHILS % (AUTO) 2.8 % (0-6); HEMATOCRIT 33.6 % (35.0-45.0); HEMOGLOBIN 11.2 g/dl (12.0-16.0); LYMPHOCYTES # (AUTO) 2.1 X10'3 (1.1-4.8); LYMPHOCYTES % (AUTO) 20.1 % (21-51); MEAN CORPUSCULAR HEMOGLOBIN 28.8 PG (27.0-31.0); MEAN CORPUSCULAR HGB CONC 33.4 g/dL (33.0-36.5); MEAN CORPUSCULAR VOLUME 86.2 FL (78-98); MEAN PLATELET VOLUME 7.9 FL (7.4-10.4); MONOCYTES # (AUTO) 1.1 X10'3 (0-0.9); MONOCYTES % (AUTO) 10.7 % (2-12); NEUTROPHILS # (AUTO) 6.7 X10'3 (1.8-7.7); NEUTROPHILS % (AUTO) 65.4 % (42-75); PLATELET COUNT 324 X10'3 (140-440); RED BLOOD COUNT 3.89 X10'6 (4.20-5.60); RED CELL DISTRIBUTION WIDTH 13.4 % (11.5-14.5); WHITE BLOOD COUNT 10.3 X10'3 (4.5-11.0)
[2024-05-14 06:29] LABS: ALBUMIN 2.6 G/DL (3.4-5.0); ALBUMIN/GLOBULIN RATIO 0.5 (1.1-1.5); ALKALINE PHOSPHATASE 151 IU/L (46-116); BILIRUBIN,TOTAL 0.4 MG/DL (0.1-1.0); BLOOD UREA NITROGEN 7 MG/DL (7-18); BUN/CREATININE RATIO 10.8 (10.0-20.0); CREATININE 0.65 MG/DL (0.40-0.90); GLUCOSE 125 MG/DL (70-104); MAGNESIUM 2.1 MG/DL (1.5-2.4); SODIUM 133 MMOL/L (135-145); TOTAL CARBON DIOXIDE 27.9 MMOL/L (24-32); TOTAL PROTEIN 7.8 G/DL (6.4-8.2); eCRCL 86 ML/MIN; eGFR > 90 ML/MIN
[2024-05-14 06:38] LABS: ASPARTATE AMINO TRANSFERASE 28 U/L (10-37); POTASSIUM 5.9 MMOL/L (3.5-5.1)
[2024-05-14 06:42] LABS: ALANINE AMINOTRANSFERASE 17 U/L (12-78); ANION GAP 6 (8-16); CHLORIDE 99 MMOL/L (99-107)
[2024-05-14 10:00] VITALS: BP 96/56; PULSE 82; RESP 18; TEMP 98.1; O2SAT 94
[2024-05-14] MEDS: sodium polystyrene sulfonate 15gm/60ml oral suspension PO ONE (12:12)
== END 2024-05-14 14:45 | disposition home health service (06) | DRG 720 ==
LOC: ER 11:29 → ED HOLD 17:07 → ORTHO 4S 05-07 12:00
PROVIDERS: ADMIT Family Medicine; ATTEND Family Medicine
PROC: 02HV33Z Insertion of Infusion Device into Superior Vena Cava, Percutaneous Approach (ICD-10-PCS; principal; 2024-05-12)
DX: A40.3 Sepsis due to Streptococcus pneumoniae (principal); E87.6 Hypokalemia; F17.210 Nicotine dependence, cigarettes, uncomplicated; M79.7 Fibromyalgia; M54.59 Other low back pain; M48.07 Spinal stenosis, lumbosacral region; M60.88 Other myositis, other site; H70.892 Other mastoiditis and related conditions, left ear; K57.32 Diverticulitis of large intestine without perforation or abscess without bleeding; F32.A Depression, unspecified; G89.29 Other chronic pain; Z90.710 Acquired absence of both cervix and uterus; Z88.2 Allergy status to sulfonamides; Z87.11 Personal history of peptic ulcer disease; Z88.1 Allergy status to other antibiotic agents; Z82.49 Family history of ischemic heart disease and other diseases of the circulatory system; Z88.3 Allergy status to other anti-infective agents
CPT/HCPCS: 36415; 36569; 70450; 71045; 71046; 72132; 72148; 72195; 74176; 76942; 80053; 80202; 81001; 81025; 82784; 82948; 83605; 83735; 84132; 85025; 85651; 86140; 86703; 87040; 87077; 87081; 87186; 93005; 93306; 96365; 96375; 97116; 97161; 97530; 99291; A4333; A6258; C1751; C1758; G0378; J0131; J0696; J1171; J1200; J1650; J1885; J2405; J2543; J3372; J7030; J7040; Q9967

== ENCOUNTER 2024-05-23 23:07 | Emergency (ER) | payer MEDICAID ==
[~2024-05-23] VITALS: Ht 162.6 cm; Wt 82.0 kg
[~2024-05-23 23:07] MED LIST changes: +CLON1TAB13 PO; -CYCL-1 PO; +DESV100T16 PO; -DIAZ2TAB4 PO; +FLUT16SP26 IH; +HYDR-3686 PO; +HYDR-3972 PO; -METO5TAB85 PO; +TIZA-205 PO
[2024-05-24] MEDS: oxyCODONE/APAP 10/325mg tablet PO ONE (01:00)
[2024-05-24 01:15] LABS: BASOPHILS # (AUTO) 0.1 X10'3 (0-0.2); BASOPHILS % (AUTO) 0.9 % (0-1); EOSINOPHILS # (AUTO) 0.3 X10'3 (0-0.9); EOSINOPHILS % (AUTO) 3.1 % (0-6); HEMOGLOBIN 11.4 g/dl (12.0-16.0); LYMPHOCYTES # (AUTO) 2.4 X10'3 (1.1-4.8); LYMPHOCYTES % (AUTO) 24.8 % (21-51); MEAN CORPUSCULAR HEMOGLOBIN 29.3 PG (27.0-31.0); MEAN CORPUSCULAR HGB CONC 34.7 g/dL (33.0-36.5); MEAN CORPUSCULAR VOLUME 84.6 FL (78-98); MEAN PLATELET VOLUME 7.2 FL (7.4-10.4); MONOCYTES # (AUTO) 0.7 X10'3 (0-0.9); MONOCYTES % (AUTO) 6.9 % (2-12); NEUTROPHILS # (AUTO) 6.2 X10'3 (1.8-7.7); NEUTROPHILS % (AUTO) 64.3 % (42-75); PLATELET COUNT 597 X10'3 (140-440); RED CELL DISTRIBUTION WIDTH 13.2 % (11.5-14.5); WHITE BLOOD COUNT 9.6 X10'3 (4.5-11.0)
[2024-05-24 01:25] LABS: ALBUMIN 2.7 G/DL (3.4-5.0); ANION GAP 8 (8-16); BLOOD UREA NITROGEN 13 MG/DL (7-18); BUN/CREATININE RATIO 18.3 (10.0-20.0); CALCIUM 9.3 MG/DL (8.5-10.1); CHLORIDE 106 MMOL/L (99-107); CREATININE 0.71 MG/DL (0.40-0.90); GLUCOSE 112 MG/DL (70-104); POTASSIUM 3.8 MMOL/L (3.5-5.1); SODIUM 141 MMOL/L (135-145); TOTAL CARBON DIOXIDE 26.9 MMOL/L (24-32); eCRCL 79 ML/MIN; eGFR 86 ML/MIN
[2024-05-24 02:21] VITALS: BP 113/82; PULSE 79; RESP 16; TEMP 98.1; O2SAT 95
== END 2024-05-24 02:09 | disposition home or self-care (01) ==
LOC: ER 23:08
DX: M54.50 Low back pain, unspecified (principal); G89.29 Other chronic pain; M79.7 Fibromyalgia; F12.90 Cannabis use, unspecified, uncomplicated; Z88.2 Allergy status to sulfonamides; Z88.1 Allergy status to other antibiotic agents; Z88.8 Allergy status to other drugs, medicaments and biological substances; Z88.5 Allergy status to narcotic agent; Z87.11 Personal history of peptic ulcer disease; Z90.710 Acquired absence of both cervix and uterus; Z79.899 Other long term (current) drug therapy
CPT/HCPCS: 36415; 80048; 85025; 99284

== ENCOUNTER 2024-05-26 22:42 | Emergency (ER) | payer MEDICAID ==
[~2024-05-26] VITALS: Ht 162.6 cm; Wt 89.1 kg
[2024-05-26] MEDS: dexamethasone sod phosphate 10mg/ml inj IV ONE (23:15)
[2024-05-26] MEDS: ketorolac trometh 15mg/ml vial 15 MG/ML ML IV ONE (23:16)
[2024-05-27] MEDS: HYDROmorphone 1 mg/ml syringe IV ONE (00:19)
[2024-05-27 00:50] VITALS: BP 112/71; PULSE 85; RESP 16; O2SAT 96
== END 2024-05-27 00:56 | disposition home or self-care (01) ==
LOC: ER 22:43
DX: G89.29 Other chronic pain (principal); M54.50 Low back pain, unspecified; R10.31 Right lower quadrant pain; M79.7 Fibromyalgia; K57.32 Diverticulitis of large intestine without perforation or abscess without bleeding; F12.90 Cannabis use, unspecified, uncomplicated; Z88.2 Allergy status to sulfonamides; Z79.899 Other long term (current) drug therapy; Z88.8 Allergy status to other drugs, medicaments and biological substances; Z88.1 Allergy status to other antibiotic agents; Z87.11 Personal history of peptic ulcer disease; Z90.710 Acquired absence of both cervix and uterus
CPT/HCPCS: 74176; 96374; 96375; 99285; J1100; J1171; J1885

== ENCOUNTER 2024-05-28 22:13 | Emergency (ER) | payer MEDICAID ==
[~2024-05-28] VITALS: Ht 162.6 cm; Wt 88.6 kg
[2024-05-29 00:54] VITALS: BP 124/70; PULSE 98; RESP 17; TEMP 98.2; O2SAT 98
[2024-06-08] MEDS ORDERED: AMOX-580 PO (04:50)
== END 2024-05-29 00:55 | disposition home or self-care (01) ==
LOC: ER 22:15
DX: Z48.00 Encounter for change or removal of nonsurgical wound dressing (principal); M79.7 Fibromyalgia; G89.29 Other chronic pain; Z88.1 Allergy status to other antibiotic agents; Z88.2 Allergy status to sulfonamides; Z88.5 Allergy status to narcotic agent; Z88.8 Allergy status to other drugs, medicaments and biological substances; Z90.710 Acquired absence of both cervix and uterus; Z87.11 Personal history of peptic ulcer disease; Z95.828 Presence of other vascular implants and grafts
CPT/HCPCS: 99281; C1751

== ENCOUNTER 2024-06-04 11:24 | Emergency (ER) | payer MEDICAID ==
[~2024-06-04] VITALS: Ht 162.6 cm; Wt 83.6 kg
[2024-06-04] MEDS: HYDROmorphone 1 mg/ml syringe IV STA (17:24)
[2024-06-04] MEDS: proCHLORperazine 10 MG/2 ml inj IV STA (17:24)
[2024-06-04 17:27] VITALS: BP 119/80; PULSE 96; O2SAT 94
[2024-06-04 17:34] LABS: BASOPHILS % (AUTO) 0.3 % (0-1); EOSINOPHILS # (AUTO) 0.3 X10'3 (0-0.9); EOSINOPHILS % (AUTO) 4.1 % (0-6); HEMATOCRIT 34.9 % (35.0-45.0); HEMOGLOBIN 11.9 g/dl (12.0-16.0); LYMPHOCYTES # (AUTO) 2.7 X10'3 (1.1-4.8); LYMPHOCYTES % (AUTO) 35.1 % (21-51); MEAN CORPUSCULAR HEMOGLOBIN 29.1 PG (27.0-31.0); MEAN CORPUSCULAR HGB CONC 34.1 g/dL (33.0-36.5); MEAN CORPUSCULAR VOLUME 85.3 FL (78-98); MEAN PLATELET VOLUME 7.8 FL (7.4-10.4); MONOCYTES # (AUTO) 0.7 X10'3 (0-0.9); MONOCYTES % (AUTO) 9.1 % (2-12); NEUTROPHILS # (AUTO) 3.9 X10'3 (1.8-7.7); NEUTROPHILS % (AUTO) 51.4 % (42-75); PLATELET COUNT 295 X10'3 (140-440); RED BLOOD COUNT 4.09 X10'6 (4.20-5.60); RED CELL DISTRIBUTION WIDTH 13.8 % (11.5-14.5); WHITE BLOOD COUNT 7.6 X10'3 (4.5-11.0)
[2024-06-04 17:55] VITALS: RESP 16
[2024-06-04 17:58] LABS: ALANINE AMINOTRANSFERASE 13 U/L (12-78); ALBUMIN 3.1 G/DL (3.4-5.0); ALBUMIN/GLOBULIN RATIO 0.7 (1.1-1.5); ALKALINE PHOSPHATASE 110 IU/L (46-116); ANION GAP 8 (8-16); ASPARTATE AMINO TRANSFERASE 14 U/L (10-37); BILIRUBIN,TOTAL 0.4 MG/DL (0.1-1.0); BLOOD UREA NITROGEN 11 MG/DL (7-18); BUN/CREATININE RATIO 13.1 (10.0-20.0); CALCIUM 8.7 MG/DL (8.5-10.1); CHLORIDE 102 MMOL/L (99-107); CREATININE 0.84 MG/DL (0.40-0.90); GLUCOSE 91 MG/DL (70-104); POTASSIUM 3.9 MMOL/L (3.5-5.1); SODIUM 139 MMOL/L (135-145); TOTAL PROTEIN 7.8 G/DL (6.4-8.2); eCRCL 67 ML/MIN; eGFR 71 ML/MIN
[2024-06-04] MEDS ORDERED: iohexol 300 MG/1 ML 50ml polymer ONE (18:04)
[2024-06-04] MEDS ORDERED: iohexol 300mg/ml 100ml inj. ONE (18:04)
[2024-06-04 20:29] VITALS: TEMP 98.1
== END 2024-06-04 20:37 | disposition home or self-care (01) ==
LOC: ER 11:24
DX: H70.892 Other mastoiditis and related conditions, left ear (principal); K57.92 Diverticulitis of intestine, part unspecified, without perforation or abscess without bleeding; T82.898A Other specified complication of vascular prosthetic devices, implants and grafts, initial encounter; M79.7 Fibromyalgia; G89.29 Other chronic pain; E07.9 Disorder of thyroid, unspecified; F12.90 Cannabis use, unspecified, uncomplicated; Z88.2 Allergy status to sulfonamides; Z88.1 Allergy status to other antibiotic agents; Z90.710 Acquired absence of both cervix and uterus
CPT/HCPCS: 36415; 70481; 74177; 80053; 83605; 84145; 85025; 96374; 96375; 99285; J0780; J1171; Q9967; A6402

== ENCOUNTER → 2024-06-09 | Emergency (ER) | payer MEDICAID ==
[~2024-06-09] VITALS: Ht 162.6 cm; Wt 85.0 kg
[~2024-06-09] MED LIST changes: +AMOX-580 PO
[2024-06-09 20:04] VITALS: BP 110/77
[2024-06-09] MEDS: oxyCODONE SR 10mg (sust. release) tab PO ONE (21:42)
[2024-06-09] MEDS: cyclobenzaprine 10mg tablet PO ONE (22:43)
[2024-06-09 22:46] VITALS: PULSE 90; RESP 15; TEMP 98.4; O2SAT 97
== END | disposition home or self-care (01) ==
LOC: ER 19:37
DX: S50.01XA Contusion of right elbow, initial encounter (principal); G89.29 Other chronic pain; M54.89 Other dorsalgia; E07.9 Disorder of thyroid, unspecified; M79.7 Fibromyalgia; Z88.1 Allergy status to other antibiotic agents; Z88.2 Allergy status to sulfonamides; Z90.710 Acquired absence of both cervix and uterus; Z88.8 Allergy status to other drugs, medicaments and biological substances; Z79.52 Long term (current) use of systemic steroids; Z79.1 Long term (current) use of non-steroidal anti-inflammatories (NSAID); Z79.899 Other long term (current) drug therapy; W01.0XXA Fall on same level from slipping, tripping and stumbling without subsequent striking against object, initial encounter; Y93.89 Activity, other specified; Y92.89 Other specified places as the place of occurrence of the external cause; Y99.8 Other external cause status
CPT/HCPCS: 72128; 72131; 73080; 99284

== ENCOUNTER 2024-07-02 14:03 | Emergency (ER) | payer MEDICAID ==
[~2024-07-02] VITALS: Ht 175.3 cm; Wt 85.1 kg
[2024-07-02 14:12] VITALS: BP 148/103; PULSE 126; RESP 18; TEMP 97.9; O2SAT 98
[2024-07-02 15:45] LABS: BASOPHILS # (AUTO) 0.1 X10'3 (0-0.2); BASOPHILS % (AUTO) 0.4 % (0-1); EOSINOPHILS # (AUTO) 0.2 X10'3 (0-0.9); EOSINOPHILS % (AUTO) 1.7 % (0-6); HEMATOCRIT 40.4 % (35.0-45.0); HEMOGLOBIN 13.7 g/dl (12.0-16.0); LYMPHOCYTES # (AUTO) 2.9 X10'3 (1.1-4.8); LYMPHOCYTES % (AUTO) 20.6 % (21-51); MEAN CORPUSCULAR HEMOGLOBIN 28.6 PG (27.0-31.0); MEAN CORPUSCULAR HGB CONC 33.8 g/dL (33.0-36.5); MEAN CORPUSCULAR VOLUME 84.7 FL (78-98); MEAN PLATELET VOLUME 8.2 FL (7.4-10.4); MONOCYTES % (AUTO) 7.3 % (2-12); NEUTROPHILS # (AUTO) 9.7 X10'3 (1.8-7.7); PLATELET COUNT 301 X10'3 (140-440); RED BLOOD COUNT 4.77 X10'6 (4.20-5.60); RED CELL DISTRIBUTION WIDTH 14.3 % (11.5-14.5); WHITE BLOOD COUNT 13.9 X10'3 (4.5-11.0)
[2024-07-02 16:03] LABS: ALANINE AMINOTRANSFERASE 12 U/L (12-78); ALBUMIN 3.4 G/DL (3.4-5.0); ALBUMIN/GLOBULIN RATIO 0.8 (1.1-1.5); ALKALINE PHOSPHATASE 128 IU/L (46-116); ANION GAP 10 (8-16); ASPARTATE AMINO TRANSFERASE 12 U/L (10-37); BILIRUBIN,TOTAL 0.4 MG/DL (0.1-1.0); BLOOD UREA NITROGEN 12 MG/DL (7-18); BUN/CREATININE RATIO 15.4 (10.0-20.0); CHLORIDE 106 MMOL/L (99-107); CREATININE 0.78 MG/DL (0.40-0.90); GLUCOSE 93 MG/DL (70-104); LIPASE 74 U/L (16-77); POTASSIUM 3.8 MMOL/L (3.5-5.1); SODIUM 140 MMOL/L (135-145); TOTAL CARBON DIOXIDE 23.6 MMOL/L (24-32); TOTAL PROTEIN 7.8 G/DL (6.4-8.2); eCRCL 87 ML/MIN; eGFR 77 ML/MIN
[2024-07-02] MEDS: acetaminophen 1,000mg/100ml IV 100 ML IV ONE (16:22)
== END 2024-07-02 18:07 | disposition home or self-care (01) ==
LOC: ER 14:03
DX: S66.919A Strain of unspecified muscle, fascia and tendon at wrist and hand level, unspecified hand, initial encounter (principal); R10.30 Lower abdominal pain, unspecified; M25.531 Pain in right wrist; K52.89 Other specified noninfective gastroenteritis and colitis; M79.7 Fibromyalgia; Z90.710 Acquired absence of both cervix and uterus; E07.9 Disorder of thyroid, unspecified; F12.90 Cannabis use, unspecified, uncomplicated; Z88.2 Allergy status to sulfonamides; Z88.1 Allergy status to other antibiotic agents; Z88.8 Allergy status to other drugs, medicaments and biological substances; Z79.899 Other long term (current) drug therapy; W01.0XXA Fall on same level from slipping, tripping and stumbling without subsequent striking against object, initial encounter; Y93.89 Activity, other specified; Y92.89 Other specified places as the place of occurrence of the external cause; Y99.8 Other external cause status
CPT/HCPCS: 29125; 36415; 73110; 74176; 80053; 83690; 85025; 96374; 99285; J0131

== ENCOUNTER 2024-07-05 01:12 | Emergency (ER) | payer MEDICAID ==
[~2024-07-05] VITALS: Ht 162.6 cm; Wt 84.6 kg
[2024-07-05 01:15] VITALS: TEMP 98
[2024-07-05 02:10] LABS: BASOPHILS # (AUTO) 0.1 X10'3 (0-0.2); BASOPHILS % (AUTO) 1.1 % (0-1); EOSINOPHILS # (AUTO) 0.3 X10'3 (0-0.9); EOSINOPHILS % (AUTO) 4.9 % (0-6); HEMATOCRIT 37.9 % (35.0-45.0); LYMPHOCYTES # (AUTO) 2.7 X10'3 (1.1-4.8); LYMPHOCYTES % (AUTO) 49.7 % (21-51); MEAN CORPUSCULAR HEMOGLOBIN 29.2 PG (27.0-31.0); MEAN CORPUSCULAR HGB CONC 34.5 g/dL (33.0-36.5); MEAN CORPUSCULAR VOLUME 84.7 FL (78-98); MEAN PLATELET VOLUME 8.2 FL (7.4-10.4); MONOCYTES # (AUTO) 0.4 X10'3 (0-0.9); MONOCYTES % (AUTO) 7.8 % (2-12); NEUTROPHILS % (AUTO) 36.5 % (42-75); PLATELET COUNT 291 X10'3 (140-440); RED BLOOD COUNT 4.47 X10'6 (4.20-5.60); RED CELL DISTRIBUTION WIDTH 14.1 % (11.5-14.5); WHITE BLOOD COUNT 5.5 X10'3 (4.5-11.0)
[2024-07-05 02:27] LABS: ALBUMIN 3.4 G/DL (3.4-5.0); ANION GAP 6 (8-16); BILIRUBIN,TOTAL 0.3 MG/DL (0.1-1.0); BLOOD UREA NITROGEN 12 MG/DL (7-18); BUN/CREATININE RATIO 16.2 (10.0-20.0); CHLORIDE 106 MMOL/L (99-107); CREATININE 0.74 MG/DL (0.40-0.90); GLUCOSE 105 MG/DL (70-104); POTASSIUM 4.1 MMOL/L (3.5-5.1); SODIUM 138 MMOL/L (135-145); TOTAL CARBON DIOXIDE 25.7 MMOL/L (24-32); TOTAL PROTEIN 7.5 G/DL (6.4-8.2); eCRCL 76 ML/MIN; eGFR 82 ML/MIN
[2024-07-05 02:28] LABS: ALANINE AMINOTRANSFERASE 17 U/L (12-78); ALBUMIN/GLOBULIN RATIO 0.8 (1.1-1.5); ALKALINE PHOSPHATASE 116 IU/L (46-116); ASPARTATE AMINO TRANSFERASE 12 U/L (10-37); LIPASE 62 U/L (16-77)
[2024-07-05 03:32] VITALS: BP 129/89; PULSE 99; O2SAT 98
[2024-07-05] MEDS ORDERED: DICY10CA88 PO (07:25)
[2024-07-05] MEDS: dicyclomine 10 MG capsule PO ONE (08:13)
[2024-07-05 08:14] VITALS: RESP 18
== END 2024-07-05 08:16 | disposition home or self-care (01) ==
LOC: ER 01:13
DX: R19.7 Diarrhea, unspecified (principal); M79.7 Fibromyalgia; Z88.1 Allergy status to other antibiotic agents; Z88.2 Allergy status to sulfonamides; Z88.5 Allergy status to narcotic agent; Z88.8 Allergy status to other drugs, medicaments and biological substances; Z79.899 Other long term (current) drug therapy; Z90.710 Acquired absence of both cervix and uterus; Z87.11 Personal history of peptic ulcer disease
CPT/HCPCS: 36415; 80053; 83690; 85025; 99283

== ENCOUNTER 2024-11-12 19:01 | Emergency (ER) | payer MEDICAID ==
[~2024-11-12 19:01] MED LIST changes: -AMOX-580 PO
[2024-11-12 19:08] VITALS: BP 129/85; PULSE 90; TEMP 97.8; O2SAT 96
[2024-11-12 21:36] LABS: BILIRUBIN,URINE NEGATIVE (Neg); CLARITY,URINE CLEAR (Clear); COLOR,URINE YELLOW (Yellow); GLUCOSE, URINE NEGATIVE (Neg); KETONES,URINE NEGATIVE (Neg); LEUKOCYTE ESTERASE ,URINE SMALL (Neg); NITRITES, URINE NEGATIVE (Neg); OCCULT BLOOD,URINE NEGATIVE (Neg); PROTEIN,URINE NEGATIVE (Neg); UROBILINOGEN,URINE 0.2 E.U/dL (0.2-1.0)
[2024-11-12 21:39] LABS: URINE HCG NEGATIVE (NEG)
--- NOTE | 2024-11-12 21:43 | Physician Documentation ---
History of Present Illness ~ Chief Complaint: Back Pain Stated Complaint: BACK PAIN Time Seen by MD: 21:31 Primary Medical Doctor: Arvind MORALES HPI Patient presents to the emergency room with back pain onset this week. Pain that has bilateral lower back and also radiating into her left inguinal area. No prior instances. Patient does have history of fibromyalgia. She has taken her usual pain medication last time this morning with little relief. He states it feels similar to previous colitis. She does endorse diarrhea however nothing very much out of the or new issue has a occasional off and on diarrhea. She reports history of Clostridium difficile as well as ovarian pathology. She is unsure of fevers she says she has intermittent nausea she also states she has been having cold symptoms for the past four months and she also states she thinks she is dehydrated because she had a mask on at a left a [place]. Medication Reconciliation Allergies: Coded Allergies: Sulfa (Sulfonamide Antibiotics) (Verified Allergy, Unknown, 11/12/24) levofloxacin (Verified Allergy, Unknown, 11/12/24) metronidazole (Verified Allergy, Unknown, 11/12/24) sulfamethoxazole (Verified Allergy, Unknown, 11/12/24) trimethoprim (Verified Allergy, Unknown, 11/12/24) Scheduled Citalopram Hydrobromide (Citalopram HBr), 1 TAB PO DAILY, (Reported) Desvenlafaxine Succinate (Desvenlafaxine Succinate ER), 200 MG PO DAILY, (Reported) Fluticasone Propionate (Fluticasone Propionate), 50 IH DAILY, (Reported) Gabapentin (Gabapentin), 1 TAB PO BID Hydrocodone Bit/Acetaminophen (Hydrocodon-Acetaminophn 10-325 tablet), 1 TAB PO TID, (Reported) Metoprolol Succinate (Metoprolol Succinate), 1 TAB-CAP PO DAILY Ondansetron Hcl (Zofran), 4 MG PO BID Tizanidine Hcl (Zanaflex), 1 TAB PO TID, (Reported) Scheduled PRN Clonazepam (Clonazepam), 1 TAB PO BID PRN for anxiety, (Reported) Hydroxyzine Hcl* (Atarax*), 1-2 TAB PO TID PRN for anxiety, (Reported) Past Medical History Past Medical History: Arrhythmia, *GI/HEPATOBILIARY*, Diverticulitis, Peptic Ulcer Disease, Thyroid (unspecified), Chronic Pain, Fibromyalgia Past Surgical History: hysterectomy Patient History: FH: breast cancer Maternal grandmother FH: heart disease FATHER FH: lung cancer Paternal grandmother Alcohol Use: None Drug Use: marijuana Lives with: Family Lives In: Home Occupation: employed Review of Systems ROS All review of systems negative except as per HPI Physical Exam Physical Exam Vital Signs: Temperature: 97.8, Source: Temporal, Heart Rate: 90, Respiratory Rate: 14, BP: 129/85, Pulse Oximetry: 96 Physical Exam General: Patient is awake, alert, oriented x4 in no acute distress Head: Normocephalic and atraumatic. Eyes: Conjunctival normal. EOMI. PERRL. ENT: Mucous membranes moist. Neck: Supple, trachea is midline. Chest: Clear to auscultation bilaterally without rales, rhonchi, or wheezes. There is no accessory muscle use or retractions. Cardiac: RRR without murmurs, gallops, or rubs. Abd: Soft, nondistended, mild left lower quadrant tenderness to palpation without peritonitis Back: Diffuse lumbar tenderness to palpation Progress Results/Orders Results/Orders Orders - BHARGAV BONILLA MD Ct Abdomen Pelvis (11/12/24 21:45) Completed Orders - BHARGAV BONILLA MD Cbc/Diff (11/12/24 21:43) Ct Abdomen Pelvis (11/12/24 21:45) BMP (11/12/24 21:43) Normal Saline 1000ml (Sodium Chloride 10 (11/12/24 21:45) Ketorolac Trometh 15mg/Ml Vial (Toradol (11/12/24 21:45) Fentanyl/Pf (Fentanyl 0.05 Mg/Ml Syringe (11/12/24 21:45) Ondansetron Inj. (Zofran 4mg/2ml Vial) (11/12/24 21:45) Procalcitonin (11/12/24 21:43) Medications Received in ER Medications (Trade) Dose Ordered Sig/Abner Route PRN Reason Start Time Stop Time Status Last Admin Dose Admin Sodium Chloride 1,000 ml @ 1,000 mls/hr ONCE ONCE IV 11/12/24 21:45 11/12/24 22:44 DC 11/12/24 23:00 1,000 MLS/HR (Toradol injection) 15 mg ONCE ONCE IV 11/12/24 21:45 11/12/24 21:46 DC 11/12/24 22:11 15 MG (fentaNYL 0.05 MG/ML syringe) 50 mcg ONCE ONCE IV 11/12/24 21:45 11/12/24 21:46 DC 11/12/24 23:00 50 MCG (Zofran 4mg/2ml vial) 4 mg ONCE ONCE IV 11/12/24 21:45 11/12/24 21:47 DC 11/12/24 22:12 4 MG Vital Signs 11/12/24 11/12/24 19:08 22:11 Temp 97.8 Pulse 90 Resp 14 16 B/P (MAP) 129/85 Pulse Ox 96 Laboratory Tests Test 11/12/24 21:30 11/12/24 21:55 Urine Specimen Description Cln catch midstream Urine Color Yellow Urine Clarity Clear Urine pH 7.0 Urine Specific [place] 1.010 Urine Protein Negative Urine Glucose (UA) Negative Urine Ketones Negative Urine Occult Blood Negative Urine Nitrite Negative Urine Bilirubin Negative Urine Urobilinogen 0.2 Urine Leukocyte Esterase Small H Urine RBC 0-2 Urine WBC 5-10 H Urine Squamous Epithelial Cells Moderate Urine Bacteria 1+ Urine Mucus Few Urine Culture Indicated Indicated Volume Urine Centrifuged 10 ml Urine HCG, Qualitative Negative Urine Comment White Blood Count 7.4 Red Blood Count 5.19 Hemoglobin 15.2 Hematocrit 43.8 Mean Corpuscular Volume 84.3 Mean Corpuscular Hemoglobin 29.2 Mean Corpuscular Hemoglobin Concent 34.6 Red Cell Distribution Width 14.4 Platelet Count 310 Mean Platelet Volume 8.4 Neutrophils (%) (Auto) 45.8 Lymphocytes (%) (Auto) 44.3 Monocytes (%) (Auto) 6.1 Eosinophils (%) (Auto) 2.8 Basophils (%) (Auto) 1.0 Neutrophils # (Auto) 3.4 Lymphocytes # (Auto) 3.3 Monocytes # (Auto) 0.5 Eosinophils # (Auto) 0.2 Basophils # (Auto) 0.1 CBC Comment Sodium Level 142 Potassium Level 3.7 Chloride Level 107 Carbon Dioxide Level 29.2 Anion Gap 6 L Blood Urea Nitrogen 8 Creatinine 0.75 Estimated GFR/1.73 m2 81 BUN/Creatinine Ratio 10.7 Glucose Level 94 Calcium Level 8.9 Albumin 3.5 Procalcitonin < 0.05 Chemistry Comments Microbiology Date/Time Source Procedure Growth Status 11/12/24 22:12 Urine Clean Catch Midstream Urine Culture - Preliminary Culture received. Resulted Medical Decision Making Findings Patient presented to the emergency room with back pain and flank pain. Differentials include but are not limited to pyelonephritis, kidney stone, bobo mbago, intra-abdominal infection therefore emergent labs and imaging indicated. CT scan reassuring and does correlate with the patient's reported diarrhea. No evidence of C diff regarding significant elevation of white blood cell count or procalcitonin or colitis seen on CT. No adnexal tenderness and he had not feel she is suffering from acute ovarian pathology. Patient's symptoms improved. We will treat symptomatically. ER precautions discussed Departure Disposition: HOME / SELF CARE / HOMELESS Impression: Primary Impression: Lumbago Condition: Stable Discharge Instructions: Acute Back Pain, Adult Referrals: NO PRIMARY CARE PROVIDER (PCP) Prescriptions Famotidine (Pepcid) 20 Mg Tablet 1 TAB PO Q12H, #10 TAB 0 Refills Prov: BHARGAV BONILLA MD 11/12/24 Ibuprofen* (Motrin*) 400 Mg Tablet 800 MG PO Q12H, #10 TAB Prov: BHARGAV BONILLA MD 11/12/24 Education Educated: Patient Educated regarding: diagnosis, treatment, need for follow up Signature Scribe Signature: No scribe Attestation: The note accurately reflects work and decisions made by me.Bhargav Bonilla MD 11/12/24 23:23 BHARGAV BONILLA MD November 12, 2024 21:43
[2024-11-12 21:46] LABS: UA COLLECTION TYPE CLN CATCH MIDSTREAM
[2024-11-12 21:52] LABS: SQUAMOUS EPITHELIAL CELL,UR MODERATE /LPF (FEW)
[2024-11-12 21:53] LABS: MUCUS STRANDS FEW /LPF (Neg); RBC,URINE 0-2 /HPF (0-2)
[2024-11-12 21:54] LABS: BACTERIA,URINE 1+ /HPF (Neg)
[2024-11-12 22:11] VITALS: RESP 16
[2024-11-12] MEDS: ketorolac trometh 15mg/ml vial 15 MG/ML ML IV ONE (22:11)
[2024-11-12] MEDS: ondansetron/PF 4mg/2ml inj IV ONE (22:12)
[2024-11-12 22:16] LABS: BASOPHILS # (AUTO) 0.1 X10'3 (0-0.2); EOSINOPHILS # (AUTO) 0.2 X10'3 (0-0.9); EOSINOPHILS % (AUTO) 2.8 % (0-6); HEMATOCRIT 43.8 % (35.0-45.0); HEMOGLOBIN 15.2 g/dl (12.0-16.0); LYMPHOCYTES # (AUTO) 3.3 X10'3 (1.1-4.8); LYMPHOCYTES % (AUTO) 44.3 % (21-51); MEAN CORPUSCULAR HEMOGLOBIN 29.2 PG (27.0-31.0); MEAN CORPUSCULAR HGB CONC 34.6 g/dL (33.0-36.5); MEAN CORPUSCULAR VOLUME 84.3 FL (78-98); MEAN PLATELET VOLUME 8.4 FL (7.4-10.4); MONOCYTES # (AUTO) 0.5 X10'3 (0-0.9); MONOCYTES % (AUTO) 6.1 % (2-12); NEUTROPHILS # (AUTO) 3.4 X10'3 (1.8-7.7); NEUTROPHILS % (AUTO) 45.8 % (42-75); PLATELET COUNT 310 X10'3 (140-440); RED BLOOD COUNT 5.19 X10'6 (4.20-5.60); RED CELL DISTRIBUTION WIDTH 14.4 % (11.5-14.5); WHITE BLOOD COUNT 7.4 X10'3 (4.5-11.0)
--- NOTE | 2024-11-12 22:44 | RADIOLOGY REPORT ---
Clinical History Abdominal Pain Comparison CT ABD/PEL on 07/02/2024, 420 images. Technique: All CT scans at this medical facility are performed using dose modulation techniques as appropriate t o a performed exam including the following: Automated exposure control was utilized; adjustment of th e mA and/or kV according to patient size; and use of iterative reconstruction technique. All CT studies are reported to the Dose Index Registry of the [employer]. Without Contrast Radiation Dose: CTDI (mGy): 28.74; DLP (mGy-cm): 1495.38 CULLEN SIMEON, [id number] Comparison: 07/02/24 FINDINGS: Lower chest: 8.3 mm lower right paraesophageal lymph node. Liver: Unremarkable Gallbladder: Unremarkable Pancreas: Diffuse pancreatic fatty infiltration and atrophy Spleen: Unremarkable Adrenals:Unremarkable Kidneys: Unremarkable Stomach:Unremarkable Bowel:Evaluation of the bowel is limited and incomplete due to lack of oral contrast. The small rudolph l is grossly unremarkable. Mild diverticulosis of the left hemicolon with no evidence of acute diver ticulitis. Increased amount of fluid in the colon fecal content. Normal appendix Urinary bladder:Unremarkable Reproductive organs:No pelvic masses Peritoneum, retroperitoneum, lymphadenopathy:Unremarkable Vascular structures:Unremarkable Abdominal wall:Unremarkable Musculoskeletal:No acute osseous abnormality IMPRESSION: Mild diverticulosis of the left hemicolon with no evidence of acute diverticulitis Increased amount of fluid in the colon fecal content, clinical correlation to evaluate for diarrhea i llness is recommended This report was electronically signed by Thony Lanier MD on 11/12/2024 10:41:25 PM.
[2024-11-12] MEDS: normal saline 1000ml 1,000 ML IV ONE (23:00)
[2024-11-12] MEDS: fentaNYL/PF 50MCG/1 ML 2ML syringe IV ONE (23:00)
[2024-11-12 23:14] LABS: ALBUMIN 3.5 G/DL (3.4-5.0); ANION GAP 6 (8-16); BLOOD UREA NITROGEN 8 MG/DL (7-18); BUN/CREATININE RATIO 10.7 (10.0-20.0); CALCIUM 8.9 MG/DL (8.5-10.1); CHLORIDE 107 MMOL/L (99-107); CREATININE 0.75 MG/DL (0.40-0.90); GLUCOSE 94 MG/DL (70-104); POTASSIUM 3.7 MMOL/L (3.5-5.1); SODIUM 142 MMOL/L (135-145); TOTAL CARBON DIOXIDE 29.2 MMOL/L (24-32); eGFR 81 ML/MIN
[2024-11-12] MEDS ORDERED: FAMO-129 PO (23:23)
[2024-11-12] MEDS ORDERED: IBUP-1984 PO (23:23)
== END 2024-11-12 23:45 | disposition home or self-care (01) ==
LOC: ER 19:01
DX: M54.50 Low back pain, unspecified (principal); M79.7 Fibromyalgia; F12.90 Cannabis use, unspecified, uncomplicated; Z88.1 Allergy status to other antibiotic agents; Z88.2 Allergy status to sulfonamides; Z88.8 Allergy status to other drugs, medicaments and biological substances; Z90.710 Acquired absence of both cervix and uterus
CPT/HCPCS: 36415; 74176; 80048; 81001; 81025; 84145; 85025; 87088; 96361; 96374; 96375; 99285; J1885; J2405; J3010; J7030

== ENCOUNTER 2024-11-16 21:01 | Emergency (ER) | payer MEDICAID ==
[~2024-11-16] VITALS: Ht 162.6 cm; Wt 77.0 kg
[~2024-11-16 21:01] MED LIST changes: +FAMO-129 PO; +IBUP-1984 PO
[2024-11-16 22:41] LABS: BILIRUBIN,URINE NEGATIVE (Neg); CLARITY,URINE CLEAR (Clear); COLOR,URINE YELLOW (Yellow); GLUCOSE, URINE NEGATIVE (Neg); KETONES,URINE NEGATIVE (Neg); LEUKOCYTE ESTERASE ,URINE NEGATIVE (Neg); NITRITES, URINE NEGATIVE (Neg); OCCULT BLOOD,URINE NEGATIVE (Neg); PH,URINE 6.5 (4.8-8.0); PROTEIN,URINE NEGATIVE (Neg); UA COLLECTION TYPE CLN CATCH MIDSTREAM; UROBILINOGEN,URINE 0.2 E.U/dL (0.2-1.0)
--- NOTE | 2024-11-16 22:43 | Physician Documentation ---
History of Present Illness ~ Chief Complaint: Headache Stated Complaint: HEAD PAIN Time Seen by MD: 21:11 Primary Medical Doctor: Arvind MORALES HPI Patient is seen today with complaints of a headache after her JBL speaker accidentally fell onto the right side of her head. Patient was brought in by ambulance today. Patient states she is also having some dysuria today and would like a urinalysis done. Patient admits to history of urinary tract infections. Patient denies any fevers or chills or chest pain or shortness of breath or abdominal pain or nausea, vomiting, diarrhea. Patient has no other concern or complaint at this time. Medication Reconciliation Allergies: Coded Allergies: Sulfa (Sulfonamide Antibiotics) (Verified Allergy, Unknown, 11/12/24) levofloxacin (Verified Allergy, Unknown, 11/12/24) metronidazole (Verified Allergy, Unknown, 11/12/24) sulfamethoxazole (Verified Allergy, Unknown, 11/12/24) trimethoprim (Verified Allergy, Unknown, 11/12/24) Scheduled Citalopram Hydrobromide (Citalopram HBr), 1 TAB PO DAILY, (Reported) Desvenlafaxine Succinate (Desvenlafaxine Succinate ER), 200 MG PO DAILY, (Reported) Famotidine (Pepcid), 1 TAB PO Q12H Fluticasone Propionate (Fluticasone Propionate), 50 IH DAILY, (Reported) Gabapentin (Gabapentin), 1 TAB PO BID Hydrocodone Bit/Acetaminophen (Hydrocodon-Acetaminophn 10-325 tablet), 1 TAB PO TID, (Reported) Ibuprofen* (Motrin*), 800 MG PO Q12H Metoprolol Succinate (Metoprolol Succinate), 1 TAB-CAP PO DAILY Ondansetron Hcl (Zofran), 4 MG PO BID Tizanidine Hcl (Zanaflex), 1 TAB PO TID, (Reported) Scheduled PRN Clonazepam (Clonazepam), 1 TAB PO BID PRN for anxiety, (Reported) Hydroxyzine Hcl* (Atarax*), 1-2 TAB PO TID PRN for anxiety, (Reported) Past Medical History Past Medical History: Arrhythmia, *GI/HEPATOBILIARY*, Diverticulitis, Peptic Ulcer Disease, Thyroid (unspecified), Chronic Pain, Fibromyalgia Past Surgical History: hysterectomy Patient History: FH: breast cancer Maternal grandmother FH: heart disease FATHER FH: lung cancer Paternal grandmother Alcohol Use: None Drug Use: marijuana Lives with: Family Lives In: Home Occupation: employed Review of Systems Constitutional: Denies: chills, fever, weakness Eyes: Denies: pain, blurred vision ENT: Denies: ear pain, nose pain, throat pain, mouth pain Respiratory: Denies: cough, shortness of breath Cardiovascular: Denies: chest pain, palpitations Gastrointestinal: Denies: abdominal pain, nausea, vomiting Genitourinary: Denies: burning, dysuria Female Genitalia: Denies: vaginal discharge, pelvic pain Neurological: Denies: headache, dizziness Musculoskeletal: Denies: pain, swelling Integumentary: Denies: rash, lesions Allergic/Immunologic: Denies: hives, itching Hematologic/Lymphatic: Denies: no symptoms reported Psychiatric: Denies: depression, anxiety Physical Exam Vital Signs: Temperature: 98.2, Source: Temporal, Heart Rate: 80, Respiratory Rate: 16, BP: 132/88, Pulse Oximetry: 96, Weight: 77.000 Oxygen Flow Rate: 0 Physical Exam General: Awake and Alert, no acute distress. HEENT: On exam the patient does have a very small area of swelling on the right frontalis area of the scalp without any bleeding and without laceration. PERRLA, EOM intact bilaterally. Conjunctiva pink, Sclera clear, Mucus Membranes moist. Neck: Supple without masses and tenderness. Resp: Unlabored. Lungs clear to auscultation bilaterally. Heart: Regular Rate and rhythm, normal S1 and S2 without murmur, rub or gallop. Abdomen: Soft and non tender no organomegaly Extremities: No cyanosis,clubbing or edema. Skin: Warm and Dry. Progress Results/Orders Results/Orders Completed Orders - RIVERA DICKEY Urinalysis, Cult If Indicated (11/16/24 22:27) Vital Signs 11/16/24 21:07 Temp 98.2 Pulse 80 Resp 16 B/P (MAP) 132/88 Pulse Ox 96 O2 Flow Rate 0 Laboratory Tests Test 11/16/24 22:02 Urine Specimen Description Cln catch midstream Urine Color Yellow Urine Clarity Clear Urine pH 6.5 Urine Specific [place] 1.020 Urine Protein Negative Urine Glucose (UA) Negative Urine Ketones Negative Urine Occult Blood Negative Urine Nitrite Negative Urine Bilirubin Negative Urine Urobilinogen 0.2 Urine Leukocyte Esterase Negative Urine Culture Indicated Not ind Volume Urine Centrifuged 10 ml Urine Comment Medical Decision Making Findings Patient is seen today with complaints of a headache after her JBL speaker accidentally fell onto the right side of her head. Patient was brought in by ambulance today. Patient states she is also having some dysuria today and would like a urinalysis done. Patient admits to history of urinary tract infections. Patient denies any fevers or chills or chest pain or shortness of breath or abdominal pain or nausea, vomiting, diarrhea. Patient has no other concern or complaint at this time. Patient unfortunately declined dose of Toradol or ibuprofen or Tylenol in the ED tonight. Patient was requesting dose of oxycodone has patient states she ran out two days ago and her neck script is not due for another few days. I did check a cures report which confirms that she does in fact have a prescription for Percocet and was last prescribed a 28 day supply on the 23 of October. Patient will follow up with pain management as soon as possible for discussing her pain medications. Patient did have UA in the ED tonight which did show no sign of infection. Return to ED with any worsening, concerning or changing symptoms. Continue conservative management of headache and mild head trauma. Departure Disposition: 01 HOME / SELF CARE / HOMELESS Impression: Primary Impression: Headache Qualified Codes: R51.9 - Headache, unspecified Condition: Stable Discharge Instructions: Headache Additional Instructions: Take Tylenol and ibuprofen as needed for headache. Return to ED with any worsening, concerning or changing symptoms. Referrals: NO PRIMARY CARE PROVIDER (PCP) Signature Scribe Signature: No scribe Attestation: No scribe RIVERA DICKEY PAC November 16, 2024 22:43
[2024-11-16 23:43] VITALS: BP 128/94; PULSE 81; RESP 16; TEMP 98.8; O2SAT 96
== END 2024-11-16 23:53 | disposition home or self-care (01) ==
LOC: ER 21:02
DX: R51.9 Headache, unspecified (principal); M79.7 Fibromyalgia; F12.90 Cannabis use, unspecified, uncomplicated; Z88.1 Allergy status to other antibiotic agents; Z88.2 Allergy status to sulfonamides; Z88.8 Allergy status to other drugs, medicaments and biological substances; Z90.710 Acquired absence of both cervix and uterus
CPT/HCPCS: 81003; 99283

== ENCOUNTER 2024-12-12 18:18 | Emergency (ER) | payer MEDICAID ==
[~2024-12-12] VITALS: Ht 162.6 cm; Wt 196.0 kg
--- NOTE | 2024-12-12 19:22 | ELECTROCARDIOGRAPH REPORT ---
[facility] Test Date: 2024-12-12 Test Time: 19:20:32 Pat Name: CULLEN SIMEON Department: [facility]-ER Patient ID: [facility]-[id number] Room: Gender: F Media Production Operator: : 1970 Requested By: CAREN COLLADO Order Number: [id number] Reading MD: Measurements Intervals [place] Rate: 72 P: 42 MT: 135 QRS: 58 QRSD: 106 T: 28 QT: 420 QTc: 460 Interpretive Statements Sinus rhythm Please click the below link to view image of tracing.
--- NOTE | 2024-12-12 19:27 | Physician Documentation ---
History of Present Illness Chief Complaint: Flank Pain Stated Complaint: LT SIDE PAIN Time Seen by MD: 19:11 Primary Medical Doctor: Arvind MORALES Source: patient Mode of Arrival: POV Exam Limitations: no limitations HPI Patient with a history of diverticulitis, prior AFib with ablation, C diff in with left flank pain that wraps around under her left ribs in the front and her left breast. She has had this kind of pain before and it was diverticulitis. Not currently on blood thinners. Pain is 8/10 and sharp. It is constant since this morning but she has felt really tired for the past week. Had to take a nap yesterday and she states she never takes naps. No fevers or rashes. No cough or upper respiratory symptoms. No dysuria. History of UTI but no history of pyelonephritis or nephrolithiasis. Medication Reconciliation Allergies: Coded Allergies: Sulfa (Sulfonamide Antibiotics) (Verified Allergy, Unknown, 11/12/24) levofloxacin (Verified Allergy, Unknown, 11/12/24) metronidazole (Verified Allergy, Unknown, 11/12/24) sulfamethoxazole (Verified Allergy, Unknown, 11/12/24) trimethoprim (Verified Allergy, Unknown, 11/12/24) Scheduled Citalopram Hydrobromide (Citalopram HBr), 1 TAB PO DAILY, (Reported) Desvenlafaxine Succinate (Desvenlafaxine Succinate ER), 200 MG PO DAILY, (Reported) Famotidine (Pepcid), 1 TAB PO Q12H Fluticasone Propionate (Fluticasone Propionate), 50 IH DAILY, (Reported) Gabapentin (Gabapentin), 1 TAB PO BID Hydrocodone Bit/Acetaminophen (Hydrocodon-Acetaminophn 10-325 tablet), 1 TAB PO TID, (Reported) Metoprolol Succinate (Metoprolol Succinate), 1 TAB-CAP PO DAILY Ondansetron Hcl (Zofran), 4 MG PO BID Tizanidine Hcl (Zanaflex), 1 TAB PO TID, (Reported) Scheduled PRN Clonazepam (Clonazepam), 1 TAB PO BID PRN for anxiety, (Reported) Hydroxyzine Hcl* (Atarax*), 1-2 TAB PO TID PRN for anxiety, (Reported) Discontinued Medications Ibuprofen* (Motrin*), 800 MG PO Q12H Discontinued Reason: Auto Discontinued Past Medical History Past Medical History: Arrhythmia, Atrial Fibrillation, *GI/HEPATOBILIARY*, Diverticulitis, Peptic Ulcer Disease, Thyroid (unspecified), Chronic Pain, Fibromyalgia Other Past Medical History: History of cardiac ablation Past Surgical History: hysterectomy Patient History: FH: breast cancer Maternal grandmother FH: heart disease FATHER FH: lung cancer Paternal grandmother Alcohol Use: None Drug Use: marijuana Lives with: Family Lives In: Home Occupation: employed Review of Systems All Other Systems at this time: Reviewed and Negative Physical Exam Vital Signs: Temperature: 98.4, Heart Rate: 83, Respiratory Rate: 18, BP: 108/66, Pulse Oximetry: 99, Weight: 196.000 Oxygen Flow Rate: 0 Physical Exam General: Alert and oriented x4, well-appearing, well-nourished, no acute distress HEENT: Normocephalic, atraumatic, no visible or palpable masses or depression, extraocular movements intact, PERRLA, no scleral icterus, neck is supple and nontender, mucous membranes moist Heart: Regular rate and rhythm Lungs: Clear normal work of breathing Abdomen: Soft, tender in the left upper quadrant, no palpable masses, normal bowel sounds Back: Spine is without deformity or tenderness, positive left CVA tenderness Extremities: Full range of motion, no acute deformity, Musculoskeletal: Normal gait, normal tone Neurologic: Cranial nerves 2-12 are intact, Psychiatric: Alert and oriented x4, judgment and insight normal, normal mood and affect Skin: Good turgor, no rashes Progress Results/Orders Results/Orders Orders - CAREN COLLADO MD Urinalysis, Cult If Indicated (12/12/24 19:12) Cbc/Diff (12/12/24 19:14) CMP (12/12/24 19:14) Troponin (Single) (12/12/24 19:14) Completed Orders - CAREN COLLADO MD Electrocardiogram (12/12/24 ) Vital Signs 12/12/24 12/12/24 18:30 19:19 Temp 98.4 Pulse 83 Resp 18 B/P (MAP) 130/89 108/66 (80) Pulse Ox 99 O2 Flow Rate 0 Medical Decision Making Additional Comments Differential includes but isn't limited to: Pyelonephritis, nephrolithiasis, diverticulitis, colitis, AL, GERD, pancreatitis Departure Disposition: HOME / SELF CARE / HOMELESS Impression: Primary Impression: Enteritis Additional Impression: Urinary tract infection Qualified Codes: N30.00 - Acute cystitis without hematuria Additional Impression Text EKG: Sinus rhythm, rate of 72, no ST changes, QTC 460 Patient feeling better after fluids and antiemetics in the ED. CT shows possible enteritis. CBC and chemistry unremarkable and UA shows possible urinary tract infection. Culture pending. Starting her on Augmentin. Discharging home in good condition. She is to follow up with her PCP for recheck or return here if new or worsening of symptoms. Condition: Stable Discharge Instructions: Urinary Tract Infection, Adult, [id number], Viral Gastroenteritis, Adult, [id number] Additional Instructions: Follow-up with your doctor in 7-10 days. Return if new or worsening symptoms prior to follow-up. Referrals: NO PRIMARY CARE PROVIDER (PCP) Education Educated: Patient Educated regarding: diagnosis, treatment, prognosis, need for follow up Signature Scribe Signature: No Scribe Attestation: No scribCAREN Luther MD Dec 12, 2024 19:27
[2024-12-12] MEDS: ondansetron/PF 4mg/2ml inj IV ONE ×2 (20:01→23:29)
[2024-12-12] MEDS: morphine 4 MG/ML inj SYRINge IV ONE (20:02)
[2024-12-12 21:18] LABS: ALANINE AMINOTRANSFERASE 24 U/L (12-78); ALBUMIN/GLOBULIN RATIO 0.9 (1.1-1.5); ALKALINE PHOSPHATASE 113 IU/L (46-116); ANION GAP 10 (8-16); ASPARTATE AMINO TRANSFERASE 20 U/L (10-37); BILIRUBIN,TOTAL 0.3 MG/DL (0.1-1.0); BLOOD UREA NITROGEN 11 MG/DL (7-18); BUN/CREATININE RATIO 15.7 (10.0-20.0); CALCIUM 7.4 MG/DL (8.5-10.1); CHLORIDE 109 MMOL/L (99-107); GLUCOSE 83 MG/DL (70-104); POTASSIUM 3.7 MMOL/L (3.5-5.1); SODIUM 144 MMOL/L (135-145); TOTAL CARBON DIOXIDE 24.7 MMOL/L (24-32); TOTAL PROTEIN 6.5 G/DL (6.4-8.2); eCRCL 80 ML/MIN; eGFR 88 ML/MIN
[2024-12-12 21:20] LABS: BASOPHILS # (AUTO) 0.1 X10'3 (0-0.2); BASOPHILS % (AUTO) 1.3 % (0-1); EOSINOPHILS # (AUTO) 0.2 X10'3 (0-0.9); EOSINOPHILS % (AUTO) 3.4 % (0-6); HEMATOCRIT 40.7 % (35.0-45.0); LYMPHOCYTES # (AUTO) 2.6 X10'3 (1.1-4.8); MEAN CORPUSCULAR HEMOGLOBIN 29.1 PG (27.0-31.0); MEAN CORPUSCULAR HGB CONC 34.3 g/dL (33.0-36.5); MEAN CORPUSCULAR VOLUME 84.9 FL (78-98); MEAN PLATELET VOLUME 8.3 FL (7.4-10.4); MONOCYTES # (AUTO) 0.5 X10'3 (0-0.9); MONOCYTES % (AUTO) 7.2 % (2-12); NEUTROPHILS # (AUTO) 3.4 X10'3 (1.8-7.7); NEUTROPHILS % (AUTO) 50.1 % (42-75); PLATELET COUNT 265 X10'3 (140-440); RED CELL DISTRIBUTION WIDTH 14.2 % (11.5-14.5); WHITE BLOOD COUNT 6.7 X10'3 (4.5-11.0)
[2024-12-12] MEDS: normal saline 1000ml 1,000 ML IV ONE (21:38)
[2024-12-12] MEDS: ketorolac trometh 30MG/ML vial 30 MG/ML VIAL IV ONE (21:49)
[2024-12-12 22:53] LABS: BILIRUBIN,URINE NEGATIVE (Neg); CLARITY,URINE SLIGHTLY CLOUDY (Clear); COLOR,URINE YELLOW (Yellow); GLUCOSE, URINE NEGATIVE (Neg); KETONES,URINE NEGATIVE (Neg); LEUKOCYTE ESTERASE ,URINE MODERATE (Neg); NITRITES, URINE NEGATIVE (Neg); OCCULT BLOOD,URINE NEGATIVE (Neg); PROTEIN,URINE NEGATIVE (Neg); UROBILINOGEN,URINE 0.2 E.U/dL (0.2-1.0)
[2024-12-12 22:56] LABS: UA COLLECTION TYPE CLN CATCH MIDSTREAM
[2024-12-12 23:23] LABS: BACTERIA,URINE FEW /HPF (Neg); MUCUS STRANDS FEW /LPF (Neg); RBC,URINE NONE SEEN /HPF (0-2); SQUAMOUS EPITHELIAL CELL,UR FEW /LPF (FEW)
[2024-12-12 23:24] LABS: WBC CLUMPS,URINE FEW /HPF (NEGATIVE)
--- NOTE | 2024-12-12 23:49 | RADIOLOGY REPORT ---
CLINICAL HISTORY: Left flank and left upper quadrant pain, history diverticulitis TECHNIQUE: CT of the abdomen and pelvis was performed without intravenous contrast. This exam was per formed according to our departmental dose optimization program. Up-to-date CT equipment and radiation dose reduction techniques are utilized as appropriate. CTDI: 32.06 DLP: 1656.43 WID: COMPARISON: CT CT ABDOMEN PELVIS on DOS: 11/12/24 FINDINGS: Lower Thorax: Unremarkable. Liver and Biliary system: Hepatomegaly measuring 20 cm craniocaudal. Tiny hypodensity in segment 4 b and 8 of the liver are unchanged. Normal caliber. There is no biliary ductal dilatation. Spleen: Unremarkable. Adrenal Glands and Kidneys: Unremarkable. Pancreas and Retroperitoneum: Unremarkable. Aorta and Major Vessels: Aortoiliac vessels are normal in caliber with mild calcified atherosclerotic plaque. Bowel, Mesentery and Peritoneal space: Normal caliber small and large bowel. Normal appendix. Fluid-f illed large bowel and scattered small bowel loops. There is moderate diverticulosis in the distal lar ge bowel. No free air or fluid collection. Pelvis: Urinary bladder is mildly distended. There is no pelvic lymphadenopathy. Prior hysterectomy. Abdominal wall and Osseous Structures: Mild osteoarthritis of the bilateral hips. Moderate multilevel lower thoracic and lumbar spondylosis. Destructive osseous lesion. IMPRESSION: 1. Fluid-filled large bowel and scattered small bowel loops which could be physiologic or infectious or inflammatory enterocolitis. 2. Moderate distal colonic diverticulosis. 3. Mild hepatomegaly.
[2024-12-13] MEDS ORDERED: PROM25TA14 PO ×2 (00:15→14:24)
[2024-12-13] MEDS ORDERED: AMOX-580 PO ×2 (00:15→14:24)
[2024-12-13 01:14] VITALS: BP 126/80; PULSE 80; RESP 16; TEMP 97.8; O2SAT 99
[2024-12-13] MEDS: proMETHazine 25mg tablet PO ONE (01:14)
== END 2024-12-13 01:16 | disposition home or self-care (01) ==
LOC: ER 18:19
DX: K52.9 Noninfective gastroenteritis and colitis, unspecified (principal); N39.0 Urinary tract infection, site not specified; I48.91 Unspecified atrial fibrillation; M79.7 Fibromyalgia; F12.90 Cannabis use, unspecified, uncomplicated; Z88.1 Allergy status to other antibiotic agents; Z88.2 Allergy status to sulfonamides; Z90.710 Acquired absence of both cervix and uterus; Z79.899 Other long term (current) drug therapy
CPT/HCPCS: 36415; 74176; 80053; 81001; 84484; 85025; 87088; 93005; 96361; 96374; 96375; 96376; 99285; J1885; J2270; J2405; J7030

== ENCOUNTER 2024-12-13 05:49 | Emergency (ER) | payer MEDICAID ==
[~2024-12-13] VITALS: Ht 157.5 cm; Wt 85.6 kg
[~2024-12-13 05:49] MED LIST changes: +AMOX-580 PO; +PROM25TA14 PO
[2024-12-13 05:51] VITALS: TEMP 98
--- NOTE | 2024-12-13 07:02 | Physician Documentation ---
History of Present Illness General Chief Complaint: Nausea Stated Complaint: VOMITING Time Seen by MD: 06:57 Primary Medical Doctor: Arvind MORALES History of Present Illness Initial Comments The patient is a 54-year-old female with a history of diverticulitis, prior AFib with ablation, C diff who was seen yesterday for a urinary tract infection and was intended to be started on Augmentin. Unfortunately, the patient reports that she never did receive a dose. She was discharged around 2:00 a.m.. She went home in his vomited three or 4 times with some blood tinged streaking. She still has lower abdominal pain. Medication Reconciliation Allergies: Coded Allergies: Sulfa (Sulfonamide Antibiotics) (Verified Allergy, Unknown, 12/13/24) levofloxacin (Verified Allergy, Unknown, 12/13/24) metronidazole (Verified Allergy, Unknown, 12/13/24) sulfamethoxazole (Verified Allergy, Unknown, 12/13/24) trimethoprim (Verified Allergy, Unknown, 12/13/24) Scheduled Amox Tr/Potassium Clavulanate 875/125 MG (Augmentin 875/125 MG), 1 TAB PO BID Citalopram Hydrobromide (Citalopram HBr), 1 TAB PO DAILY, (Reported) Desvenlafaxine Succinate (Desvenlafaxine Succinate ER), 200 MG PO DAILY, (Reported) Famotidine (Pepcid), 1 TAB PO Q12H Fluticasone Propionate (Fluticasone Propionate), 50 IH DAILY, (Reported) Gabapentin (Gabapentin), 1 TAB PO BID Hydrocodone Bit/Acetaminophen (Hydrocodon-Acetaminophn 10-325 tablet), 1 TAB PO TID, (Reported) Metoprolol Succinate (Metoprolol Succinate), 1 TAB-CAP PO DAILY Ondansetron Hcl (Zofran), 4 MG PO BID Tizanidine Hcl (Zanaflex), 1 TAB PO TID, (Reported) Scheduled PRN Clonazepam (Clonazepam), 1 TAB PO BID PRN for anxiety, (Reported) Hydroxyzine Hcl* (Atarax*), 1-2 TAB PO TID PRN for anxiety, (Reported) Promethazine HCl (Promethazine HCl), 1 TAB PO Q6H PRN for nausea/vomiting Discontinued Medications Ibuprofen* (Motrin*), 800 MG PO Q12H Discontinued Reason: Auto Discontinued Past Medical History Past Medical History: Arrhythmia, Atrial Fibrillation, *GI/HEPATOBILIARY*, Diverticulitis, Peptic Ulcer Disease, Thyroid (unspecified), Chronic Pain, Fibromyalgia Past Surgical History: hysterectomy Alcohol Use: None Drug Use: marijuana Lives with: Family Lives In: Home Occupation: employed Review of Systems ROS Constitutional: Denies chills, fatigue, fever, weight gain or weight loss. HEENT: Denies hearing loss, sinus pressure or visual changes. Respiratory: Denies cough, shortness of breath or wheezing. Cardiovascular: Denies chest pain, pain while walking (claudication), edema or palpitations. Gastrointestinal: Vomiting with some blood-tinged sputum. Genitourinary: Suprapubic pain. Metabolic/Endocrine: Denies cold intolerance, heat intolerance, excessive thirst (polydipsia) or excessive hunger (polyphagia). Neurological: Denies dizziness, extremity numbness, extremity weakness, headaches, seizures or tremors. Psychiatric: Denies anxiety or depression. Integumentary: Denies breast discharge, breast lump, hives, mole change(s), rash or skin lesion. Musculoskeletal: Denies back pain, joint pain, joint swelling or neck pain. Hematologic: Denies easily bleeding, easily bruises, lymphedema or issues with blood clots. Immunologic: Denies food allergies or seasonal allergies. Physical Exam Physical Exam Vital Signs: Temperature: 98.0, Heart Rate: 94, Respiratory Rate: 16, BP: 155/92, Pulse Oximetry: 97, Weight: 85.600 Oxygen Flow Rate: 0 Physical Exam Physical Exam Vitals and nursing note reviewed. Constitutional: General: Patient is awake, alert, oriented x 4 in no acute distress and well appearing. Speech is clear and lucid. Appearance: Normal appearance. Patient is not ill-appearing, toxic-appearing or diaphoretic. HENT: Head: Normocephalic and atraumatic. Mouth/Throat: Mouth: Mucous membranes are moist. Pharynx: Oropharynx is clear. Eyes: General: No scleral icterus. Extraocular Movements: Extraocular movements intact. Pupils: Pupils are equal, round, and reactive to light. Cardiovascular: Rate and Rhythm: Normal rate and regular rhythm. Heart sounds: No murmur heard. Pulmonary: Effort: No respiratory distress. Breath sounds: No wheezing, rhonchi or rales. Abdominal: General: There is no distension. Palpations: There is no fluid wave, hepatomegaly or mass. Tenderness: There is no abdominal tenderness. There is no guarding. Musculoskeletal: General: No swelling or deformity. Skin: Coloration: Skin is not jaundiced. Findings: No erythema or rash. Neurological: Mental Status: Patient is alert. Progress Results/Orders Results/Orders Orders - ZULY MARTIN MD Ceftriaxone 2gm/D5w 50ml Bag (Rocephin 2 (12/13/24 08:00) Culture Blood (12/13/24 07:11) Cult Urine + [place] [address] (12/13/24 10:36) Completed Orders - ZULY MARTIN MD CMP (12/13/24 07:06) Cbc/Diff (12/13/24 07:06) Normal Saline 1000ml (Sodium Chloride 10 (12/13/24 07:10) Prochlorperazine Inj (Compazine Inj) (12/13/24 07:10) Diphenhydramine Inj (Benadryl Inj.) (12/13/24 07:10) Lacticsepsis (12/13/24 07:11) Ua W/Microscopic, Cult If Ind (12/13/24 10:22) Medications Received in ER Medications (Trade) Dose Ordered Sig/Abner Route PRN Reason Start Time Stop Time Status Last Admin Dose Admin Sodium Chloride 1,000 ml @ 1,000 mls/hr ONCE ONCE IV 12/13/24 07:10 12/13/24 08:09 DC 12/13/24 07:10 1,000 MLS/HR Ceftriaxone Sodium/Dextrose 50 ml @ 100 mls/hr DAILY IV 12/13/24 08:00 12/13/24 08:09 100 MLS/HR (Compazine inj) 10 mg ONCE ONCE IV 12/13/24 07:10 12/13/24 07:23 DC 12/13/24 08:01 10 MG (Benadryl inj.) 25 mg ONCE ONCE IV 12/13/24 07:10 12/13/24 07:23 DC 12/13/24 08:01 25 MG Vital Signs 12/13/24 12/13/24 12/13/24 12/13/24 05:51 07:46 08:25 12:52 Temp 98.0 Pulse 94 59 100 Resp 16 18 18 16 B/P (MAP) 155/92 129/76 (93) 126/85 (99) Pulse Ox 97 99 97 O2 Flow Rate 0 0 0 Laboratory Tests Test 12/13/24 07:14 12/13/24 10:22 White Blood Count 9.7 Red Blood Count 5.29 Hemoglobin 15.5 Hematocrit 45.0 Mean Corpuscular Volume 85.1 Mean Corpuscular Hemoglobin 29.2 Mean Corpuscular Hemoglobin Concent 34.3 Red Cell Distribution Width 14.1 Platelet Count 313 Mean Platelet Volume 8.8 Neutrophils (%) (Auto) 69.2 Lymphocytes (%) (Auto) 22.8 Monocytes (%) (Auto) 5.8 Eosinophils (%) (Auto) 1.5 Basophils (%) (Auto) 0.7 Neutrophils # (Auto) 6.7 Lymphocytes # (Auto) 2.2 Monocytes # (Auto) 0.6 Eosinophils # (Auto) 0.1 Basophils # (Auto) 0.1 CBC Comment Sodium Level 143 Potassium Level 4.2 Chloride Level 107 Carbon Dioxide Level 27.4 Anion Gap 9 Blood Urea Nitrogen 14 Creatinine 0.92 H Estimated GFR/1.73 m2 64 BUN/Creatinine Ratio 15.2 Glucose Level 125 H Lactic Acid Level 0.7 Calcium Level 9.1 # Total Bilirubin 0.4 Aspartate Amino Transf (AST/SGOT) 25 Alanine Aminotransferase (ALT/SGPT) 25 Alkaline Phosphatase 136 H Total Protein 7.9 Albumin 3.7 Globulin 4.2 Albumin/Globulin Ratio 0.9 L Chemistry Comments Urine Specimen Description Cln catch midstream Urine Color Yellow Urine Clarity Slightly cloudy Urine pH 6.0 Urine Specific [place] 1.010 Urine Protein Negative Urine Glucose (UA) Negative Urine Ketones 15 H Urine Occult Blood Small Urine Nitrite Negative Urine Bilirubin Negative Urine Urobilinogen 0.2 Urine Leukocyte Esterase Moderate H Urine RBC 0-2 Urine WBC 10-20 H Urine Squamous Epithelial Cells Moderate Urine Bacteria 1+ Urine Mucus Few Urine Yeast Moderate Urine Culture Indicated Indicated Volume Urine Centrifuged 10 ml Urine Comment Microbiology Date/Time Source Procedure Growth Status 12/13/24 10:36 Urine Clean Catch Midstream Urine Culture - Preliminary Culture received. Resulted 12/13/24 07:38 Blood Arm Right Blood Culture - Preliminary NEGATIVE (LESS THAN 24 HOURS) Resulted Medical Decision Making Findings This 54-year-old female was seen last night with a UTI. She did not start antibiotics immediately. She came in with nausea and abdominal pain. I have treated her with ceftriaxone and fluids and currently she feels much better and would like to go home. Going to have her fill her prescription for antibiotic and encourage her to remain well hydrated. Departure Disposition: HOME / SELF CARE / HOMELESS Impression: Primary Impression: Urinary tract infection Condition: Stable Referrals: NO PRIMARY CARE PROVIDER (PCP) Education Educated: Patient Educated regarding: diagnosis, treatment, prognosis, need for follow up Signature Scribe Signature: . Attestation: . ZULY MARTIN MD Dec 13, 2024 07:02
[2024-12-13] MEDS: normal saline 1000ml 1,000 ML IV ONE (07:10)
[2024-12-13 07:50] LABS: BASOPHILS # (AUTO) 0.1 X10'3 (0-0.2); BASOPHILS % (AUTO) 0.7 % (0-1); EOSINOPHILS # (AUTO) 0.1 X10'3 (0-0.9); EOSINOPHILS % (AUTO) 1.5 % (0-6); HEMOGLOBIN 15.5 g/dl (12.0-16.0); LYMPHOCYTES # (AUTO) 2.2 X10'3 (1.1-4.8); LYMPHOCYTES % (AUTO) 22.8 % (21-51); MEAN CORPUSCULAR HEMOGLOBIN 29.2 PG (27.0-31.0); MEAN CORPUSCULAR HGB CONC 34.3 g/dL (33.0-36.5); MEAN CORPUSCULAR VOLUME 85.1 FL (78-98); MEAN PLATELET VOLUME 8.8 FL (7.4-10.4); MONOCYTES # (AUTO) 0.6 X10'3 (0-0.9); MONOCYTES % (AUTO) 5.8 % (2-12); NEUTROPHILS # (AUTO) 6.7 X10'3 (1.8-7.7); NEUTROPHILS % (AUTO) 69.2 % (42-75); PLATELET COUNT 313 X10'3 (140-440); RED BLOOD COUNT 5.29 X10'6 (4.20-5.60); RED CELL DISTRIBUTION WIDTH 14.1 % (11.5-14.5); WHITE BLOOD COUNT 9.7 X10'3 (4.5-11.0)
[2024-12-13 07:59] LABS: ALANINE AMINOTRANSFERASE 25 U/L (12-78); ALBUMIN 3.7 G/DL (3.4-5.0); ALBUMIN/GLOBULIN RATIO 0.9 (1.1-1.5); ALKALINE PHOSPHATASE 136 IU/L (46-116); ANION GAP 9 (8-16); ASPARTATE AMINO TRANSFERASE 25 U/L (10-37); BILIRUBIN,TOTAL 0.4 MG/DL (0.1-1.0); BLOOD UREA NITROGEN 14 MG/DL (7-18); BUN/CREATININE RATIO 15.2 (10.0-20.0); CHLORIDE 107 MMOL/L (99-107); CREATININE 0.92 MG/DL (0.40-0.90); GLUCOSE 125 MG/DL (70-104); POTASSIUM 4.2 MMOL/L (3.5-5.1); SODIUM 143 MMOL/L (135-145); TOTAL CARBON DIOXIDE 27.4 MMOL/L (24-32); TOTAL PROTEIN 7.9 G/DL (6.4-8.2); eCRCL 56 ML/MIN; eGFR 64 ML/MIN
[2024-12-13] MEDS: CefTRIAXone 2gm/D5W 50ml BAG 50 ML IV SCH (08:00)
[2024-12-13] MEDS: diphenhydrAMINE 50 mg/ml inj IV ONE (08:01)
[2024-12-13] MEDS: proCHLORperazine 10 MG/2 ml inj IV ONE (08:01)
[2024-12-13 08:22] LABS: CALCIUM 9.1 MG/DL (8.5-10.1)
[2024-12-13 10:33] LABS: BILIRUBIN,URINE NEGATIVE (Neg); COLOR,URINE YELLOW (Yellow); GLUCOSE, URINE NEGATIVE (Neg); KETONES,URINE 15 mg/dl (Neg); LEUKOCYTE ESTERASE ,URINE MODERATE (Neg); NITRITES, URINE NEGATIVE (Neg); OCCULT BLOOD,URINE SMALL (Neg); PROTEIN,URINE NEGATIVE (Neg); UROBILINOGEN,URINE 0.2 E.U/dL (0.2-1.0)
[2024-12-13 10:36] LABS: CLARITY,URINE SLIGHTLY CLOUDY (Clear); UA COLLECTION TYPE CLN CATCH MIDSTREAM
[2024-12-13 10:43] LABS: SQUAMOUS EPITHELIAL CELL,UR MODERATE /LPF (FEW)
[2024-12-13 10:45] LABS: BACTERIA,URINE 1+ /HPF (Neg); RBC,URINE 0-2 /HPF (0-2)
[2024-12-13 10:46] LABS: MUCUS STRANDS FEW /LPF (Neg); YEAST MODERATE /HPF (NEGATIVE)
[2024-12-13 13:08] VITALS: BP 126/85; PULSE 100; RESP 16; O2SAT 97
[2024-12-13] MEDS ORDERED: PROM25TA14 PO (14:24)
[2024-12-13] MEDS ORDERED: AMOX-580 PO (14:24)
== END 2024-12-13 13:14 | disposition home or self-care (01) ==
LOC: ER 05:49
DX: N39.0 Urinary tract infection, site not specified (principal); I48.91 Unspecified atrial fibrillation; M79.7 Fibromyalgia; F12.90 Cannabis use, unspecified, uncomplicated; Z88.1 Allergy status to other antibiotic agents; Z88.2 Allergy status to sulfonamides; Z90.710 Acquired absence of both cervix and uterus; Z79.899 Other long term (current) drug therapy
CPT/HCPCS: 36415; 80053; 81001; 83605; 85025; 87040; 87088; 96361; 96365; 96375; 99284; J0696; J0780; J1200; J7030

== ENCOUNTER 2024-12-16 17:08 | Emergency (ER) | payer MEDICAID ==
[~2024-12-16] VITALS: Ht 160 cm; Wt 77.3 kg
[~2024-12-16 17:08] MED LIST changes: -IBUP-1984 PO
[2024-12-16 17:20] VITALS: BP 147/100; PULSE 110; O2SAT 98
--- NOTE | 2024-12-16 19:18 | Physician Documentation ---
History of Present Illness ~ Chief Complaint: Urinary Symptoms Stated Complaint: UTI Time Seen by MD: 18:53 Primary Medical Doctor: Arvind MORALES HPI Patient presents to the emergency room for re-evaluation of bilateral back pain. She was seen here recently and diagnosed with a urinary tract infection as well as colitis. She was placed on Augmentin but states symptoms have gotten worse. Significant nausea without vomiting. Continues to have diarrhea unchanged. No fevers. She takes scheduled [place] for pain. She says Zofran does not work however the Benadryl and Compazine last time worked well for her. She reports decreased urinary output Medication Reconciliation Allergies: Coded Allergies: Sulfa (Sulfonamide Antibiotics) (Verified Allergy, Unknown, 12/16/24) levofloxacin (Verified Allergy, Unknown, 12/16/24) metronidazole (Verified Allergy, Unknown, 12/16/24) sulfamethoxazole (Verified Allergy, Unknown, 12/16/24) trimethoprim (Verified Allergy, Unknown, 12/16/24) Scheduled Amox Tr/Potassium Clavulanate 875/125 MG (Augmentin 875/125 MG), 1 TAB PO BID Amox Tr/Potassium Clavulanate 875/125 MG (Augmentin 875/125 MG), 1 TAB PO BID Citalopram Hydrobromide (Citalopram HBr), 1 TAB PO DAILY, (Reported) Desvenlafaxine Succinate (Desvenlafaxine Succinate ER), 200 MG PO DAILY, (Reported) Famotidine (Pepcid), 1 TAB PO Q12H Fluticasone Propionate (Fluticasone Propionate), 50 IH DAILY, (Reported) Gabapentin (Gabapentin), 1 TAB PO BID Hydrocodone Bit/Acetaminophen (Hydrocodon-Acetaminophn 10-325 tablet), 1 TAB PO TID, (Reported) Metoprolol Succinate (Metoprolol Succinate), 1 TAB-CAP PO DAILY Ondansetron Hcl (Zofran), 4 MG PO BID Tizanidine Hcl (Zanaflex), 1 TAB PO TID, (Reported) Scheduled PRN Clonazepam (Clonazepam), 1 TAB PO BID PRN for anxiety, (Reported) Hydroxyzine Hcl* (Atarax*), 1-2 TAB PO TID PRN for anxiety, (Reported) Promethazine HCl (Promethazine HCl), 1 TAB PO Q6H PRN for nausea/vomiting Promethazine HCl (Promethazine HCl), 1 TAB PO Q6H PRN for nausea/vomiting Discontinued Medications Ibuprofen* (Motrin*), 800 MG PO Q12H Discontinued Reason: Auto Discontinued Past Medical History Past Medical History: Arrhythmia, Atrial Fibrillation, *GI/HEPATOBILIARY*, Diverticulitis, Peptic Ulcer Disease, Thyroid (unspecified), Chronic Pain, Fibromyalgia Past Surgical History: hysterectomy Patient History: FH: breast cancer Maternal grandmother FH: heart disease FATHER FH: lung cancer Paternal grandmother Alcohol Use: None Drug Use: marijuana Lives with: Family Lives In: Home Occupation: employed Review of Systems ROS All review of systems negative except as per HPI Physical Exam Vital Signs: Temperature: 97.5, Source: Temporal, Heart Rate: 110, Respiratory Rate: 18, BP: 147/100, Pulse Oximetry: 98, Weight: 77.270 Physical Exam General: Patient is awake, alert, oriented x4 in no acute distress Head: Normocephalic and atraumatic. Eyes: Conjunctival normal. EOMI. PERRL. ENT: Mucous membranes moist. Neck: Supple, trachea is midline. Chest: Clear to auscultation bilaterally without rales, rhonchi, or wheezes. There is no accessory muscle use or retractions. Cardiac: RRR without murmurs, gallops, or rubs. Abd: Soft, nondistended, no abdominal tenderness to palpation. Positive bowel sounds Progress Results/Orders Results/Orders Completed Orders - ALECIA BONILLA MD Cbc/Diff (12/16/24 18:39) BMP (12/16/24 18:39) Lipase (12/16/24 18:39) CMP (12/16/24 18:39) Procalcitonin (12/16/24 18:56) Normal Saline 1000ml (Sodium Chloride 10 (12/16/24 19:20) Prochlorperazine Inj (Compazine Inj) (12/16/24 19:20) Diphenhydramine Inj (Benadryl Inj.) (12/16/24 19:20) Ketorolac Trometh 15mg/Ml Vial (Toradol (12/16/24 20:35) Medications Received in ER Medications (Trade) Dose Ordered Sig/Abner Route PRN Reason Start Time Stop Time Status Last Admin Dose Admin Sodium Chloride 1,000 ml @ 1,000 mls/hr ONCE ONCE IV 12/16/24 19:20 12/16/24 20:19 DC 12/16/24 20:26 1,000 MLS/HR (Compazine inj) 10 mg ONCE ONCE IV 12/16/24 19:20 12/16/24 19:21 DC 12/16/24 20:25 10 MG (Benadryl inj.) 25 mg ONCE ONCE IV 12/16/24 19:20 12/16/24 19:21 DC 12/16/24 20:26 25 MG (Toradol injection) 15 mg ONCE ONCE IV 12/16/24 20:35 12/16/24 20:36 DC 12/16/24 20:54 15 MG Vital Signs 12/16/24 12/16/24 17:20 20:54 Temp 97.5 Pulse 110 Resp 18 18 B/P (MAP) 147/100 Pulse Ox 98 Laboratory Tests Test 12/16/24 19:09 12/16/24 19:50 White Blood Count 7.1 Red Blood Count 4.93 Hemoglobin 14.4 Hematocrit 41.6 Mean Corpuscular Volume 84.4 Mean Corpuscular Hemoglobin 29.2 Mean Corpuscular Hemoglobin Concent 34.6 Red Cell Distribution Width 13.9 Platelet Count 285 Mean Platelet Volume 8.0 Neutrophils (%) (Auto) 52.2 Lymphocytes (%) (Auto) 35.7 Monocytes (%) (Auto) 6.8 Eosinophils (%) (Auto) 4.2 Basophils (%) (Auto) 1.1 H Neutrophils # (Auto) 3.7 Lymphocytes # (Auto) 2.5 Monocytes # (Auto) 0.5 Eosinophils # (Auto) 0.3 Basophils # (Auto) 0.1 CBC Comment Sodium Level 139 Potassium Level 3.6 Chloride Level 106 Carbon Dioxide Level 30.1 Anion Gap 3 L Blood Urea Nitrogen 8 Creatinine 0.87 Estimated GFR/1.73 m2 68 BUN/Creatinine Ratio 9.2 L Glucose Level 89 Calcium Level 8.9 Total Bilirubin 0.5 Aspartate Amino Transf (AST/SGOT) 24 Alanine Aminotransferase (ALT/SGPT) 24 Alkaline Phosphatase 117 H Total Protein 7.3 Albumin 3.8 Globulin 3.5 Albumin/Globulin Ratio 1.1 Lipase 35 Procalcitonin < 0.05 Chemistry Comments Urine Specimen Description Cln catch midstream Urine Color Yellow Urine Clarity Slightly cloudy Urine pH 6.0 Urine Specific [place] 1.020 Urine Protein Negative Urine Glucose (UA) Negative Urine Ketones Negative Urine Occult Blood Negative Urine Nitrite Negative Urine Bilirubin Negative Urine Urobilinogen 0.2 Urine Leukocyte Esterase Small H Urine RBC 0-2 Urine WBC 5-10 H Urine Squamous Epithelial Cells Many Urine Amorphous Urates 1+ Urine Bacteria Few Urine Mucus None seen Urine Yeast Moderate Urine Culture Indicated Rejected for culture Volume Urine Centrifuged 10 ml Urine Comment Medical Decision Making Findings Patient presents to the emergency room with chief complaints as per HPI. Differentials include but are not limited to dehydration, acute kidney injury, sepsis, UTI therefore emergent labs drawn and we are able to compare these to previous which were reassuring. Patient's urinalysis was a dirty catch. She is responding to therapy. I feel patient's main concern is her nausea she is likely suffering from antibiotics on top of her pain medicines. We will prescribe anti nausea medications and compensating seems work well for her. ER precautions discussed. Given reassuring labs I do not feel she requires a repeat CT scan at this time. Departure Disposition: HOME / SELF CARE / HOMELESS Impression: Primary Impression: Acute urinary tract infection Condition: Stable Discharge Instructions: Urinary Tract Infection, Adult Referrals: NO PRIMARY CARE PROVIDER (PCP) Prescriptions Diphenhydramine Hcl (Benadryl) 25 Mg Capsule 1 CAP PO Q6H, #20 CAP 0 Refills Prov: ALECIA BONILLA MD 12/16/24 Prochlorperazine Maleate (Compazine) 10 Mg Tablet 1 TAB PO Q6H, #20 TAB 0 Refills Prov: ALECIA BONILLA MD 12/16/24 Education Educated: Patient Educated regarding: diagnosis, treatment, need for follow up Signature Scribe Signature: No scribe Attestation: The note accurately reflects work and decisions made by me.Alecia Bonilla MD 12/16/24 21:04 ALECIA BONILLA MD Dec 16, 2024 19:18
[2024-12-16 19:22] LABS: BASOPHILS # (AUTO) 0.1 X10'3 (0-0.2); BASOPHILS % (AUTO) 1.1 % (0-1); EOSINOPHILS # (AUTO) 0.3 X10'3 (0-0.9); EOSINOPHILS % (AUTO) 4.2 % (0-6); HEMATOCRIT 41.6 % (35.0-45.0); HEMOGLOBIN 14.4 g/dl (12.0-16.0); LYMPHOCYTES # (AUTO) 2.5 X10'3 (1.1-4.8); LYMPHOCYTES % (AUTO) 35.7 % (21-51); MEAN CORPUSCULAR HEMOGLOBIN 29.2 PG (27.0-31.0); MEAN CORPUSCULAR HGB CONC 34.6 g/dL (33.0-36.5); MEAN CORPUSCULAR VOLUME 84.4 FL (78-98); MONOCYTES # (AUTO) 0.5 X10'3 (0-0.9); MONOCYTES % (AUTO) 6.8 % (2-12); NEUTROPHILS # (AUTO) 3.7 X10'3 (1.8-7.7); NEUTROPHILS % (AUTO) 52.2 % (42-75); PLATELET COUNT 285 X10'3 (140-440); RED BLOOD COUNT 4.93 X10'6 (4.20-5.60); RED CELL DISTRIBUTION WIDTH 13.9 % (11.5-14.5); WHITE BLOOD COUNT 7.1 X10'3 (4.5-11.0)
[2024-12-16 19:38] LABS: ALANINE AMINOTRANSFERASE 24 U/L (12-78); ALBUMIN 3.8 G/DL (3.4-5.0); ALBUMIN/GLOBULIN RATIO 1.1 (1.1-1.5); ALKALINE PHOSPHATASE 117 IU/L (46-116); ANION GAP 3 (8-16); ASPARTATE AMINO TRANSFERASE 24 U/L (10-37); BILIRUBIN,TOTAL 0.5 MG/DL (0.1-1.0); BLOOD UREA NITROGEN 8 MG/DL (7-18); BUN/CREATININE RATIO 9.2 (10.0-20.0); CALCIUM 8.9 MG/DL (8.5-10.1); CHLORIDE 106 MMOL/L (99-107); CREATININE 0.87 MG/DL (0.40-0.90); GLUCOSE 89 MG/DL (70-104); LIPASE 35 U/L (16-77); POTASSIUM 3.6 MMOL/L (3.5-5.1); SODIUM 139 MMOL/L (135-145); TOTAL CARBON DIOXIDE 30.1 MMOL/L (24-32); TOTAL PROTEIN 7.3 G/DL (6.4-8.2); eCRCL 62 ML/MIN; eGFR 68 ML/MIN
[2024-12-16] MEDS: proCHLORperazine 10 MG/2 ml inj IV ONE (20:25)
[2024-12-16] MEDS: normal saline 1000ml 1,000 ML IV ONE (20:26)
[2024-12-16] MEDS: diphenhydrAMINE 50 mg/ml inj IV ONE (20:26)
[2024-12-16 20:29] LABS: BILIRUBIN,URINE NEGATIVE (Neg); CLARITY,URINE SLIGHTLY CLOUDY (Clear); COLOR,URINE YELLOW (Yellow); GLUCOSE, URINE NEGATIVE (Neg); KETONES,URINE NEGATIVE (Neg); LEUKOCYTE ESTERASE ,URINE SMALL (Neg); NITRITES, URINE NEGATIVE (Neg); OCCULT BLOOD,URINE NEGATIVE (Neg); PROTEIN,URINE NEGATIVE (Neg); UROBILINOGEN,URINE 0.2 E.U/dL (0.2-1.0)
[2024-12-16 20:31] LABS: UA COLLECTION TYPE CLN CATCH MIDSTREAM
[2024-12-16 20:34] LABS: BACTERIA,URINE FEW /HPF (Neg); MUCUS STRANDS NONE SEEN /LPF (Neg); RBC,URINE 0-2 /HPF (0-2); SQUAMOUS EPITHELIAL CELL,UR MANY /LPF (FEW)
[2024-12-16 20:35] LABS: AMORPHOUS URATES 1+; YEAST MODERATE /HPF (NEGATIVE)
[2024-12-16 20:54] VITALS: RESP 18
[2024-12-16] MEDS: ketorolac trometh 15mg/ml vial 15 MG/ML ML IV ONE (20:54)
[2024-12-16] MEDS ORDERED: PROC-8 PO (21:04)
[2024-12-16] MEDS ORDERED: DIPH25CA83 PO (21:04)
[2024-12-16] MEDS: ondansetron/PF 4mg/2ml inj IV ONE (21:15)
[2024-12-16 21:20] VITALS: TEMP 97.5
== END 2024-12-16 21:22 | disposition home or self-care (01) ==
LOC: ER 17:09
DX: N39.0 Urinary tract infection, site not specified (principal); I48.91 Unspecified atrial fibrillation; M79.7 Fibromyalgia; F12.90 Cannabis use, unspecified, uncomplicated; Z88.1 Allergy status to other antibiotic agents; Z88.2 Allergy status to sulfonamides; Z90.710 Acquired absence of both cervix and uterus; Z88.8 Allergy status to other drugs, medicaments and biological substances; Z79.899 Other long term (current) drug therapy
CPT/HCPCS: 36415; 80053; 81001; 83690; 84145; 85025; 96361; 96374; 96375; 99284; J0780; J1200; J1885; J2405; J7030

== ENCOUNTER 2025-02-03 01:59 | Emergency (ER) | payer MEDICAID ==
[~2025-02-03] VITALS: Ht 160 cm; Wt 77.5 kg
[~2025-02-03 01:59] MED LIST changes: -AMOX-580 PO; +DIPH25CA83 PO; +PROC-8 PO; -PROM25TA14 PO
[2025-02-03 02:37] LABS: MEAN PLATELET VOLUME 7.9 FL (7.4-10.4); RED CELL DISTRIBUTION WIDTH 13.4 % (11.5-14.5)
[2025-02-03 02:48] LABS: CREATININE 0.87 MG/DL (0.40-0.90); TOTAL CARBON DIOXIDE 27.2 MMOL/L (24-32); eCRCL 62 ML/MIN; eGFR 68 ML/MIN
[2025-02-03 03:27] LABS: URINE HCG NEGATIVE (NEG)
[2025-02-03 03:30] LABS: LEUKOCYTE ESTERASE ,URINE SMALL (Neg); NITRITES, URINE NEGATIVE (Neg); OCCULT BLOOD,URINE NEGATIVE (Neg); UA COLLECTION TYPE CLN CATCH MIDSTREAM
[2025-02-03 03:36] LABS: MUCUS STRANDS MANY /LPF (Neg); SQUAMOUS EPITHELIAL CELL,UR MODERATE /LPF (FEW)
--- NOTE | 2025-02-03 06:42 | Physician Documentation ---
History of Present Illness Chief Complaint: Back Pain Stated Complaint: FLANK AND BACK PAIN Time Seen by MD: 06:16 Primary Medical Doctor: Arvind MORALES Mode of Arrival: POV HPI 54-year-old female presenting with left sided abdominal pain that has been present for the past week. She reports that the pain has been constant but will fluctuate in intensity. It is a sharp pain that she states will as a 8/10 on intensity at its worst. Currently she rates it as about a five. She states that there is no relation to any food or anything else that she does. She does endorse that she has been going to the bathroom was slightly more often than usual but she denies any pain with urination or burning. She denies any fever, chills or any other associated symptoms. Patient does report that she has had more frequent urinary tract infections over the past year ever since last fall when she was hospitalized for sepsis. Medication Reconciliation Allergies: Coded Allergies: Sulfa (Sulfonamide Antibiotics) (Verified Allergy, Unknown, 02/03/25) levofloxacin (Verified Allergy, Unknown, 02/03/25) metronidazole (Verified Allergy, Unknown, 02/03/25) sulfamethoxazole (Verified Allergy, Unknown, 02/03/25) trimethoprim (Verified Allergy, Unknown, 02/03/25) Scheduled Citalopram Hydrobromide (Citalopram HBr), 1 TAB PO DAILY, (Reported) Desvenlafaxine Succinate (Desvenlafaxine Succinate ER), 200 MG PO DAILY, (Reported) Diphenhydramine Hcl (Benadryl), 1 CAP PO Q6H Famotidine (Pepcid), 1 TAB PO Q12H Fluticasone Propionate (Fluticasone Propionate), 50 IH DAILY, (Reported) Gabapentin (Gabapentin), 1 TAB PO BID Hydrocodone Bit/Acetaminophen (Hydrocodon-Acetaminophn 10-325 tablet), 1 TAB PO TID, (Reported) Metoprolol Succinate (Metoprolol Succinate), 1 TAB-CAP PO DAILY Ondansetron Hcl (Zofran), 4 MG PO BID Prochlorperazine Maleate (Compazine), 1 TAB PO Q6H Tizanidine Hcl (Zanaflex), 1 TAB PO TID, (Reported) Scheduled PRN Clonazepam (Clonazepam), 1 TAB PO BID PRN for anxiety, (Reported) Hydroxyzine Hcl* (Atarax*), 1-2 TAB PO TID PRN for anxiety, (Reported) Past Medical History Past Medical History: Arrhythmia, Atrial Fibrillation, *GI/HEPATOBILIARY*, Diverticulitis, Peptic Ulcer Disease, Thyroid (unspecified), Chronic Pain, Fibromyalgia Past Surgical History: hysterectomy Patient History: FH: breast cancer Maternal grandmother FH: heart disease FATHER FH: lung cancer Paternal grandmother Alcohol Use: None Drug Use: marijuana Lives with: Family Lives In: Home Occupation: employed Review of Systems All Other Systems at this time: Reviewed and Negative Physical Exam Vital Signs: Temperature: 96.6, Source: Temporal, Heart Rate: 63, Respiratory Rate: 17, BP: 110/66, Pulse Oximetry: 96, Weight: 77.550 Physical Exam I have reviewed the triage vitals. CONST: Well developed and well nourished. In no acute distress HENT: Head Atraumatic EYES: Pupils are equal, round and reactive to light. Normal conjunctiva NECK: Normal range of motion. Supple. CARDIO: Normal rate and regular rhythm. No murmurs, rubs, or gallops. S1, S2. PULM/CHEST: No respiratory distress. Lungs clear to auscultation. No wheeze ABD: Soft, slight tenderness to palpation over the left lower quadrant. Nondistended. Bowel sounds normal. No guarding. : Exam deferred MSK: No edema. No deformity. NEURO: Alert and oriented to person, place and time. Moving all extremities SKIN: Warm and dry. PSYCH: Normal mood and affect. Good eye contact. Progress Results/Orders Results/Orders Orders - DEVANTE MARES MD Ct Abdomen Pelvis (02/03/25 06:33) Medications Received in ER Medications (Trade) Dose Ordered Sig/Abner Route PRN Reason Start Time Stop Time Status Last Admin Dose Admin (Benadryl inj.) 25 mg ONCE ONCE IV 02/03/25 05:25 02/03/25 05:26 DC 02/03/25 05:31 25 MG (Compazine inj) 10 mg ONCE ONCE IV 02/03/25 05:25 02/03/25 05:26 DC 02/03/25 05:30 10 MG Vital Signs 02/03/25 02/03/25 02/03/25 02:01 03:06 05:52 Temp 96.6 Pulse 100 95 63 Resp 15 18 17 B/P (MAP) 136/89 119/80 (93) 110/66 (81) Pulse Ox 96 96 96 Laboratory Tests Test 02/03/25 02:25 02/03/25 03:15 White Blood Count 8.1 Red Blood Count 4.92 Hemoglobin 14.8 Hematocrit 41.7 Mean Corpuscular Volume 84.7 Mean Corpuscular Hemoglobin 30.1 Mean Corpuscular Hemoglobin Concent 35.5 Red Cell Distribution Width 13.4 Platelet Count 316 Mean Platelet Volume 7.9 Neutrophils (%) (Auto) 47.1 Lymphocytes (%) (Auto) 42.0 Monocytes (%) (Auto) 5.6 Eosinophils (%) (Auto) 3.9 Basophils (%) (Auto) 1.4 H Neutrophils # (Auto) 3.8 Lymphocytes # (Auto) 3.4 Monocytes # (Auto) 0.5 Eosinophils # (Auto) 0.3 Basophils # (Auto) 0.1 CBC Comment Sodium Level 131 L Potassium Level 3.6 Chloride Level 103 Carbon Dioxide Level 27.2 Anion Gap 1 L Blood Urea Nitrogen 13 Creatinine 0.87 Estimated GFR/1.73 m2 68 BUN/Creatinine Ratio 14.9 Glucose Level 127 H Calcium Level 8.7 Total Bilirubin 0.2 Aspartate Amino Transf (AST/SGOT) 23 Alanine Aminotransferase (ALT/SGPT) 23 Alkaline Phosphatase 144 H Total Protein 7.3 Albumin 3.5 Globulin 3.8 Albumin/Globulin Ratio 0.9 L Lipase 29 Chemistry Comments Urine Specimen Description Cln catch midstream Urine Color Yellow Urine Clarity Clear Urine pH 6.0 Urine Specific Whick 1.025 Urine Protein Negative Urine Glucose (UA) Negative Urine Ketones Negative Urine Occult Blood Negative Urine Nitrite Negative Urine Bilirubin Negative Urine Urobilinogen 1.0 Urine Leukocyte Esterase Small H Urine RBC 0-2 Urine WBC 10-20 H Urine Squamous Epithelial Cells Moderate Urine Bacteria Few Urine Mucus Many Urine Culture Indicated Indicated Volume Urine Centrifuged 10 ml Urine HCG, Qualitative Negative Urine Comment Microbiology Date/Time Source Procedure Growth Status 02/03/25 03:37 Urine Clean Catch Midstream Urine Culture - Preliminary Culture received. Resulted EKG/XRAY/CT/US/VASC/MRI CT : CT: abdomen/pelvis Impression FINDINGS: Lung bases: Lung bases are clear. Liver: Grossly unremarkable in its noncontrast enhanced appearance. No abnormal density or focal lesion identified. Biliary: Gallbladder is partially contracted. No calcified gallstones vi sualized. Spleen: Unremarkable. Pancreas: Grossly unremarkable in its noncontrast enhanced appearance. Adrenal glands: Unremarkable. No mass. Kidneys: No hydronephrosis. No renal or ureteral calculi. Aorta/Vascular: Moderate atherosclerotic calcification. No abdominal aortic aneurysm. Retroperitoneum: No mass or lymphadenopathy. Bowel/mesentery: Nonspecific nondilated fluid-filled small bowel loops. No small bowel obstruction. Appendix is visualized and appears unremarkable. Scattered colonic diverticula without adjacent inflammatory changes to suggest diverticulitis. Pelvic organs: Grossly unremarkable. Bladder: Unremarkable. No mass. Abdominal wall: No mass or hernia. Bones: No acute fracture or suspicious intraosseous lesion. IMPRESSION: 1. Nonspecific nondilated fluid-filled small bowel loops. Findings may be seen with ileus or enteritis in the appropriate clinical setting. No small bowel obstruction. 2. Scattered colonic diverticula without adjacent inflammatory changes to sugge st diverticulitis. 3. No hydronephrosis and no renal or ureteral calculi. 4. Additional findings as described above. Medical Decision Making Additional Comments 54-year-old female presenting with a recurrent urinary tract infection. Her 2nd visit over the last couple of months for this. I did do a CT of the abdomen and pelvis to rule out any other pathology and the CT was unremarkable. She has no signs of any diverticulitis nor renal stones. Her urinalysis was suggestive of a UTI although it is not a completely clean catch. However she did has had some symptoms that would be suggestive of a UTI and namely the abdominal pain and the increased frequency of urination. Departure Disposition: HOME / SELF CARE / HOMELESS Impression: Primary Impression: Urinary tract infection Discharge Instructions: Urinary Tract Infection, Adult Additional Instructions: Please take your medication as prescribed and drink plenty of fluids. Monitor symptoms for improvement and resolution. Follow up with PCP in the next 2-3 days. Return to the ED with any acutely worsening symptoms. Referrals: NO PRIMARY CARE PROVIDER (PCP) Prescriptions Cephalexin (Cephalexin) 500 Mg Capsule 1 CAP PO Q12H for 7 Days, #14 CAP Prov: DEVANTE MARES MD 02/03/25 Signature Scribe Signature: 1 Attestation: 1 DEVANTE MARES MD Feb 03, 2025 06:42
[2025-02-03 07:12] VITALS: TEMP 97.8
[2025-02-03 07:22] VITALS: RESP 16
--- NOTE | 2025-02-03 07:28 | RADIOLOGY REPORT ---
CLINICAL INFORMATION: Left lower abdominal pain. TECHNIQUE: Axial CT images of the abdomen and pelvis were obtained without IV contrast. Coronal and s agittal reformatted images were obtained, reviewed, and stored. Evaluation of the parenchymal organs is limited without IV contrast. Evaluation of the bowel and mesentery is limited without oral contras t. All CT scans at this medical facility are performed using dose modulation techniques as appropriat e to a performed exam including the following: Automated exposure control was utilized; adjustment of the MA and/or KV according to patient size; and use of iterative reconstruction technique. CTDIvol = 26.22 mGy DLP = 1396.86 mGy-cm COMPARISON: CT CT ABDOMEN PELVIS on DOS: 12/12/24, CT CT ABDOMEN PELVIS on DOS: 11/12/24, CT CT ABDOMEN PELVIS on DOS: 07/02/24 FINDINGS: Lung bases: Lung bases are clear. Liver: Grossly unremarkable in its noncontrast enhanced appearance. No abnormal density or focal lesi on identified. Biliary: Gallbladder is partially contracted. No calcified gallstones visualized. Spleen: Unremarkable. Pancreas: Grossly unremarkable in its noncontrast enhanced appearance. Adrenal glands: Unremarkable. No mass. Kidneys: No hydronephrosis. No renal or ureteral calculi. Aorta/Vascular: Moderate atherosclerotic calcification. No abdominal aortic aneurysm. Retroperitoneum: No mass or lymphadenopathy. Bowel/mesentery: Nonspecific nondilated fluid-filled small bowel loops. No small bowel obstruction. A ppendix is visualized and appears unremarkable. Scattered colonic diverticula without adjacent infla mmatory changes to suggest diverticulitis. Pelvic organs: Grossly unremarkable. Bladder: Unremarkable. No mass. Abdominal wall: No mass or hernia. Bones: No acute fracture or suspicious intraosseous lesion. IMPRESSION: 1. Nonspecific nondilated fluid-filled small bowel loops. Findings may be seen with ileus or enteriti s in the appropriate clinical setting. No small bowel obstruction. 2. Scattered colonic diverticula without adjacent inflammatory changes to suggest diverticulitis. 3. No hydronephrosis and no renal or ureteral calculi. 4. Additional findings as described above.
[2025-02-03] MEDS ORDERED: CEPH500C2 PO (07:43)
[2025-02-03 08:11] VITALS: BP 148/91; PULSE 82; O2SAT 93
== END 2025-02-03 08:14 | disposition home or self-care (01) ==
LOC: ER 02:00
DX: N39.0 Urinary tract infection, site not specified (principal); I48.91 Unspecified atrial fibrillation; M79.7 Fibromyalgia; F12.90 Cannabis use, unspecified, uncomplicated; Z90.710 Acquired absence of both cervix and uterus; Z88.8 Allergy status to other drugs, medicaments and biological substances; Z88.1 Allergy status to other antibiotic agents; Z88.2 Allergy status to sulfonamides; Z79.899 Other long term (current) drug therapy
CPT/HCPCS: 36415; 74176; 80053; 81001; 81025; 83690; 85025; 87088; 96374; 96375; 99285; J0780; J1200; J7030

== ENCOUNTER 2025-02-07 02:03 | Emergency (ER) | payer MEDICAID ==
[~2025-02-07] VITALS: Ht 152.4 cm; Wt 85.3 kg
[~2025-02-07 02:03] MED LIST changes: +CEPH500C2 PO
[2025-02-07 02:06] VITALS: BP 126/83; PULSE 85; TEMP 97.9; O2SAT 94
[2025-02-07 02:20] VITALS: RESP 16
[2025-02-07 02:37] LABS: LEUKOCYTE ESTERASE ,URINE NEGATIVE (Neg); NITRITES, URINE NEGATIVE (Neg); OCCULT BLOOD,URINE NEGATIVE (Neg); UA COLLECTION TYPE CLN CATCH MIDSTREAM
--- NOTE | 2025-02-07 02:37 | Physician Documentation ---
History of Present Illness ~ Chief Complaint: Urinary Symptoms Stated Complaint: UTI Time Seen by MD: 02:26 Primary Medical Doctor: Arvind MORALES Source: patient Mode of Arrival: POV, Ambulatory Exam Limitations: no limitations HPI Chief Complaint: Low back pain Caveat: None Independent Historians: None History of Present Illness: Patient is a 53-year-old woman who complains of lower back pain and complains of a urinary tract infection that just will not go away. Patient states that she has had these symptoms on and off since last May when she was septic secondary to a urinary tract infection. Patient complains of swelling and pain over her low back/SI joint area. Pain is worse with movement. Patient's pain has been persistent for at least a couple of weeks but she has returned because the pain has gotten worse. Medical records reviewed: Three recent ER visits for urinary tract infection on December 13, December 16 and most recently February 03. Review of systems: All systems were reviewed and are negative except for what is indicated in the history of present illness. Past Medical History: Urinary tract infections Past Surgical History: Partial hysterectomy Social History: Tobacco use, denies alcohol use or drug use Medications: Reviewed as documented Nursing Notes Allergies: Reviewed as documented in Nursing Notes Medication Reconciliation Allergies: Coded Allergies: Sulfa (Sulfonamide Antibiotics) (Verified Allergy, Unknown, 02/03/25) levofloxacin (Verified Allergy, Unknown, 02/03/25) metronidazole (Verified Allergy, Unknown, 02/03/25) sulfamethoxazole (Verified Allergy, Unknown, 02/03/25) trimethoprim (Verified Allergy, Unknown, 02/03/25) Scheduled Cephalexin (Cephalexin), 1 CAP PO Q12H Citalopram Hydrobromide (Citalopram HBr), 1 TAB PO DAILY, (Reported) Desvenlafaxine Succinate (Desvenlafaxine Succinate ER), 200 MG PO DAILY, (Reported) Diphenhydramine Hcl (Benadryl), 1 CAP PO Q6H Famotidine (Pepcid), 1 TAB PO Q12H Fluticasone Propionate (Fluticasone Propionate), 50 IH DAILY, (Reported) Gabapentin (Gabapentin), 1 TAB PO BID Hydrocodone Bit/Acetaminophen (Hydrocodon-Acetaminophn 10-325 tablet), 1 TAB PO TID, (Reported) Metoprolol Succinate (Metoprolol Succinate), 1 TAB-CAP PO DAILY Ondansetron Hcl (Zofran), 4 MG PO BID Orphenadrine Citrate (Norflex), 1 TAB PO BID Prochlorperazine Maleate (Compazine), 1 TAB PO Q6H Tizanidine Hcl (Zanaflex), 1 TAB PO TID, (Reported) Scheduled PRN Clonazepam (Clonazepam), 1 TAB PO BID PRN for anxiety, (Reported) Hydrocodone Bit/Acetaminophen (Hydrocodone-Apap 10-325 Tablet), 1 TAB PO TID PRN PRN for pain Hydroxyzine Hcl* (Atarax*), 1-2 TAB PO TID PRN for anxiety, (Reported) Past Medical History Past Medical History: Arrhythmia, Atrial Fibrillation, *GI/HEPATOBILIARY*, Diverticulitis, Peptic Ulcer Disease, Thyroid (unspecified), Chronic Pain, Fibromyalgia Past Surgical History: hysterectomy Patient History: FH: breast cancer Maternal grandmother FH: heart disease FATHER FH: lung cancer Paternal grandmother Alcohol Use: None Drug Use: marijuana Lives with: Family Lives In: Home Occupation: employed Review of Systems All Other Systems at this time: Reviewed and Negative ROS Patient denies any other acute symptoms other than above. All other systems are negative Physical Exam Vital Signs: RN Vital Signs have been reviewed: Yes, Temperature: 97.9, Source: Temporal, Heart Rate: 85, Respiratory Rate: 16, BP: 126/83, Pulse Oximetry: 94, Weight: 85.350 Oxygen Flow Rate: 0 Pulse Oximetry Reflects: adequate oxygenation Physical Exam General Appearance: No distress HEENT: Normal OP, moist oral mucosa, PERRL, EOMI Neck: supple, normal ROM, trachea midline Pulmonary: No respiratory distress, CTA, BS equal Cardiac: RRR, no murmur, rub or gallop, GI: nondistended, soft, nontender, normal bowel sounds, no guarding, no rebound : Bilateral CVA tenderness Back: Outwardly normal-appearing, left SI joint tenderness, tenderness over the left sciatic notch, no midline spine tenderness Extremities: normal ROM, no swelling, non-tender Skin: intact, dry, warm, no rashes Neuro: AAOx3, speech is clear, no focal motor weakness Psych: normal affect, good eye contact, no apparent hallucination, normal speech Progress Results/Orders Results/Orders Orders - MERCED ESPOSITO MD Morphine 4mg/Ml Inj. (Morphine Inj.) (02/07/25 02:45) Ed Iv Pain Medications (02/07/25 02:43) Saline Lock (02/07/25 02:43) Hydrocodone/Apap 10/325 ([place] 10/325mg (02/07/25 04:15) Completed Orders - MERCED ESPOSITO MD Cbc/Diff (02/07/25 02:30) Lipase (02/07/25 02:30) CMP (02/07/25 02:30) Ua W/Microscopic, Cult If Ind (02/07/25 02:22) Ondansetron Inj. (Zofran 4mg/2ml Vial) (02/07/25 02:45) Normal Saline 1000ml (0.9% Sodium Chlori (02/07/25 02:45) Ketorolac Trometh 15mg/Ml Vial (Toradol (02/07/25 02:45) Medications Received in ER Medications (Trade) Dose Ordered Sig/Abner Route PRN Reason Start Time Stop Time Status Last Admin Dose Admin (Zofran 4mg/2ml vial) 4 mg ONCE ONCE IV 02/07/25 02:45 02/07/25 02:46 DC 02/07/25 03:05 4 MG (morphine inj.) 4 mg Q20M PRN IV moderate to severe pain 4-10 02/07/25 02:45 02/07/25 03:09 4 MG (0.9% sodium chloride (NS) 1000ml IV soln) 1,000 ml ONCE ONCE IVB 02/07/25 02:45 02/07/25 02:46 DC 02/07/25 03:05 1,000 ML (Toradol injection) 15 mg ONCE ONCE IV 02/07/25 02:45 02/07/25 02:46 DC 02/07/25 03:05 15 MG Vital Signs 02/07/25 02/07/25 02:06 02:20 Temp 97.9 Pulse 85 Resp 18 16 B/P (MAP) 126/83 Pulse Ox 94 O2 Flow Rate 0 Laboratory Tests Test 02/07/25 02:22 02/07/25 03:10 Urine Specimen Description Cln catch midstream Urine Color Straw Urine Clarity Clear Urine pH 6.0 Urine Specific Achille >=1.030 Urine Protein Trace Urine Glucose (UA) Negative Urine Ketones Trace H Urine Occult Blood Negative Urine Nitrite Negative Urine Bilirubin Small Urine Urobilinogen 0.2 Urine Leukocyte Esterase Negative Urine RBC 0-2 Urine WBC 0-4 Urine Squamous Epithelial Cells Many Urine Bacteria None seen Urine Mucus Many Urine Yeast Few Urine Culture Indicated Not ind Volume Urine Centrifuged 10 ml Urine Comment White Blood Count 7.0 Red Blood Count 4.53 Hemoglobin 13.5 Hematocrit 38.6 Mean Corpuscular Volume 85.3 Mean Corpuscular Hemoglobin 29.8 Mean Corpuscular Hemoglobin Concent 34.9 Red Cell Distribution Width 13.5 Platelet Count 255 Mean Platelet Volume 8.7 Neutrophils (%) (Auto) 43.3 Lymphocytes (%) (Auto) 44.6 Monocytes (%) (Auto) 7.4 Eosinophils (%) (Auto) 3.7 Basophils (%) (Auto) 1.0 Neutrophils # (Auto) 3.0 Lymphocytes # (Auto) 3.1 Monocytes # (Auto) 0.5 Eosinophils # (Auto) 0.3 Basophils # (Auto) 0.1 CBC Comment Sodium Level 138 Potassium Level 3.5 Chloride Level 106 Carbon Dioxide Level 26.7 Anion Gap 5 L Blood Urea Nitrogen 18 Creatinine 0.87 Estimated GFR/1.73 m2 68 BUN/Creatinine Ratio 20.7 H Glucose Level 92 Calcium Level 8.4 L Total Bilirubin 0.4 Aspartate Amino Transf (AST/SGOT) 26 Alanine Aminotransferase (ALT/SGPT) 24 Alkaline Phosphatase 102 Total Protein 6.6 Albumin 3.3 L Globulin 3.3 Albumin/Globulin Ratio 1.0 L Lipase 30 Chemistry Comments Medical Decision Making Findings Differential diagnosis includes but is not limited to: Musculoskeletal pain, low back pain, pyelonephritis, ureteral colic, urinary tract infection Laboratory data independent interpretation: CBC: Normal CMP: Unremarkable Urinalysis: Contaminated specimen, unremarkable Emergency department course/medical decision-making: Patient is convinced that she has been having urinary tract infections and she has been getting placed on antibiotics. The last three or four urinalysis are all contaminated specimens. All the urine cultures have been either no growth or mixed marilyn. Patient's pain clinically appears to be more related to her SI joint. Lab work in repeat urinalysis has been ordered. Lab work is unremarkable. Patient's UA isn't consistent with a urinary tract infection and on top of that is a contaminated specimen. In addition the patient really isn't having any symptoms of a urinary tract infection. She is afebrile, hemodynamically stable and has no dysuria urgency or frequency. Patient was given morphine and Toradol and Zofran for her symptoms. Patient is also given [place] prior to discharge. Patient's pain is thought to be from her sciatic notch and/or her SI joint. Patient is instructed to follow up with your primary care doctor for referral to a pain specialist. Patient is stable for discharge. All of the above test results and treatment plan was discussed with the patient. Departure Time of Disposition: 04:28 Disposition: 01 HOME / SELF CARE / HOMELESS Impression: Primary Impression: Sciatic notch pain Qualified Codes: M54.32 - Sciatica, left side Condition: Stable Discharge Instructions: Neuropathic Pain, Sciatica, [id number] Additional Instructions: SUSPECT YOUR PAIN IS SECONDARY TO YOUR SI JOINT AND/OR YOUR SCIATIC NERVE. RECOMMEND YOU FOLLOW UP WITH YOUR PRIMARY CARE DOCTOR FOR REFERRAL TO A SPECIALIST. DRIVING WHEN TAKING THE PAIN MEDICATION AND MUSCLE RELAXANT. Prescriptions Orphenadrine Citrate (Norflex) 100 Mg Tablet.sa 1 TAB PO BID, #20 TAB 0 Refills Prov: MERCED ESPOSITO MD 02/07/25 Hydrocodone Bit/Acetaminophen (Hydrocodone-Apap 10-325 Tablet) 10mg/325mg Tablet 1 TAB PO TID PRN PRN for pain for 5 Days, #15 TAB Prov: MERCED ESPOSITO MD 02/07/25 Education Educated: Patient Educated regarding: diagnosis, treatment, need for follow up Signature Scribe Signature: No scribe Attestation: No scribe MERCED ESPOSITO MD Feb 07, 2025 02:37
[2025-02-07 02:43] LABS: MUCUS STRANDS MANY /LPF (Neg); SQUAMOUS EPITHELIAL CELL,UR MANY /LPF (FEW)
[2025-02-07 02:45] LABS: YEAST FEW /HPF (NEGATIVE)
[2025-02-07] MEDS: ketorolac trometh 15mg/ml vial 15 MG/ML ML IV ONE (03:05)
[2025-02-07] MEDS: ondansetron/PF 4mg/2ml inj IV ONE (03:05)
[2025-02-07] MEDS: normal saline 1000ML IV soln IVB ONE (03:05)
[2025-02-07] MEDS: morphine 4 MG/ML inj SYRINge IV PRN (03:09)
[2025-02-07 03:19] LABS: MEAN PLATELET VOLUME 8.7 FL (7.4-10.4); RED CELL DISTRIBUTION WIDTH 13.5 % (11.5-14.5)
[2025-02-07 03:33] LABS: CREATININE 0.87 MG/DL (0.40-0.90); TOTAL CARBON DIOXIDE 26.7 MMOL/L (24-32); eCRCL 54 ML/MIN; eGFR 68 ML/MIN
[2025-02-07] MEDS ORDERED: HYDR-3973 PO (04:30)
[2025-02-07] MEDS ORDERED: ORPH100T4 PO (04:30)
[2025-02-07] MEDS: HYDROcodone/acetaminophen 10/325mg tab PO ONE (04:40)
== END 2025-02-07 04:44 | disposition home or self-care (01) ==
LOC: ER 02:04
DX: M54.32 Sciatica, left side (principal); N39.0 Urinary tract infection, site not specified; I48.91 Unspecified atrial fibrillation; M79.7 Fibromyalgia; Z88.1 Allergy status to other antibiotic agents; Z88.2 Allergy status to sulfonamides; Z88.8 Allergy status to other drugs, medicaments and biological substances; Z90.710 Acquired absence of both cervix and uterus
CPT/HCPCS: 36415; 80053; 81001; 83690; 85025; 96361; 96374; 96375; 99284; J1885; J2270; J2405; J7030

== ENCOUNTER 2025-02-08 19:49 | Emergency (ER) | payer MEDICAID ==
[~2025-02-08 19:49] MED LIST changes: +HYDR-3973 PO; +ORPH100T4 PO
[2025-02-08 19:55] VITALS: BP 148/93; PULSE 113; RESP 16; TEMP 97.8; O2SAT 98
[2025-02-08 20:05] LABS: MEAN PLATELET VOLUME 8.4 FL (7.4-10.4); RED CELL DISTRIBUTION WIDTH 13.7 % (11.5-14.5)
--- NOTE | 2025-02-08 20:09 | ELECTROCARDIOGRAPH REPORT ---
[facility] Test Date: 2025-02-08 Test Time: 20:07:14 Pat Name: CULLEN SIMEON Department: EMERGENCY ROOM [id number] Room: Gender: F Rn Admission: : 1970 Requested By: FELIPE BEAN Order Number: [id number] Reading MD: Measurements Intervals [place] Rate: 92 P: 55 NC: 145 QRS: 44 QRSD: 96 T: 18 QT: 368 QTc: 456 Interpretive Statements Sinus rhythm Borderline T abnormalities, anterior leads Please click the below link to view image of tracing.
[2025-02-08 20:33] LABS: CREATININE 0.69 MG/DL (0.40-0.90); PRO BRAIN NATRIURETIC PEPTIDE 164 PG/ML (0-125); TOTAL CARBON DIOXIDE 24.8 MMOL/L (24-32); eGFR 89 ML/MIN
--- NOTE | 2025-02-08 21:00 | RADIOLOGY REPORT ---
CHEST RADIOGRAPH Indication: CP Technique: Single frontal view of the chest was obtained Comparison: DI CHEST,TWO VIEWS on DOS: 05/10/24, DI CHEST,SINGLE VIEW on DOS: 05/06/24, DI CHEST,SINGLE VIEW on DOS: 07/13/23 FINDINGS: Lines and Tubes: None Lungs: No focal consolidation. Pleura: No effusion. No pneumothorax. Cardiomediastinal contours: Unremarkable Bones: No acute osseous abnormality. IMPRESSION: No acute cardiopulmonary disease.
[2025-02-08] MEDS: ketorolac trometh 30MG/ML vial 30 MG/ML VIAL IM ONE (21:34)
--- NOTE | 2025-02-08 21:39 | Physician Documentation ---
History of Present Illness Chief Complaint: Abdominal Pain Stated Complaint: UPPER ABD PAIN Time Seen by MD: 20:40 Primary Medical Doctor: Arvind MORALES HPI 54-year-old female presents to the emergency department for evaluation of focal area of rib pain and left-sided hip pain. Patient reports that she has chronic hip pain on the right but woke up in middle of the night with the her left hip hurting. Denies any trauma or injury at this time. Patient reports that the pain feels like nerve pain that she has in her right hip. The left lower portion of her ribs is tender upon palpation. Medication Reconciliation Allergies: Coded Allergies: Sulfa (Sulfonamide Antibiotics) (Verified Allergy, Unknown, 02/03/25) levofloxacin (Verified Allergy, Unknown, 02/03/25) metronidazole (Verified Allergy, Unknown, 02/03/25) sulfamethoxazole (Verified Allergy, Unknown, 02/03/25) trimethoprim (Verified Allergy, Unknown, 02/03/25) Scheduled Cephalexin (Cephalexin), 1 CAP PO Q12H Citalopram Hydrobromide (Citalopram HBr), 1 TAB PO DAILY, (Reported) Desvenlafaxine Succinate (Desvenlafaxine Succinate ER), 200 MG PO DAILY, (Repo rted) Diphenhydramine Hcl (Benadryl), 1 CAP PO Q6H Famotidine (Pepcid), 1 TAB PO Q12H Fluticasone Propionate (Fluticasone Propionate), 50 IH DAILY, (Reported) Gabapentin (Gabapentin), 1 TAB PO BID Hydrocodone Bit/Acetaminophen (Hydrocodon-Acetaminophn 10-325 tablet), 1 TAB PO TID, (Reported) Metoprolol Succinate (Metoprolol Succinate), 1 TAB-CAP PO DAILY Ondansetron Hcl (Zofran), 4 MG PO BID Orphenadrine Citrate (Norflex), 1 TAB PO BID Prochlorperazine Maleate (Compazine), 1 TAB PO Q6H Tizanidine Hcl (Zanaflex), 1 TAB PO TID, (Reported) Scheduled PRN Clonazepam (Clonazepam), 1 TAB PO BID PRN for anxiety, (Reported) Hydrocodone Bit/Acetaminophen (Hydrocodone-Apap 10-325 Tablet), 1 TAB PO TID PRN PRN for pain Hydroxyzine Hcl* (Atarax*), 1-2 TAB PO TID PRN for anxiety, (Reported) Past Medical History Past Medical History: Arrhythmia, Atrial Fibrillation, *GI/HEPATOBILIARY*, Diverticulitis, Peptic Ulcer Disease, Thyroid (unspecified), Chronic Pain, Fibromyalgia Past Surgical History: hysterectomy Patient History: FH: breast cancer Maternal grandmother FH: heart disease FATHER FH: lung cancer Paternal grandmother Alcohol Use: None Drug Use: marijuana Lives with: Family Lives In: Home Occupation: employed Review of Systems ROS As stated above in the HPI, otherwise all systems are reviewed and negative. Physical Exam Vital Signs: Temperature: 97.8, Heart Rate: 113, Respiratory Rate: 16, BP: 148/93, Pulse Oximetry: 98 Oxygen Flow Rate: 0 Physical Exam VITALS: Reviewed and as above. GENERAL: Alert, no apparent distress. HEENT: Normocephalic, atraumatic, PERRL, EOMI, dry mucosa, no erythema RESPIRATORY: Lungs clear, normal breath sounds, no respiratory distress. CHEST: No accessory muscle use, no retractions CV: Regular rate, rhythm, no edema, no murmur, No: JVD GI: Soft, non-tender, bowels sounds present, no rebound, guarding, or rigidity BACK: No CVA tenderness, or swelling MUSCULOSKELETAL No deformities, no edema, focal pain with palpation to the left lower ribs and intercostal space, pain to the left lateral hip with palpation. SKIN: Warm and dry, no rash NEURO: Oriented x4, No motor or sensory deficit PSYCH: Normal mood and affect, no agitation Progress Results/Orders Results/Orders Completed Orders - ANA MARIA MOLINA [employer] Ketorolac Trometh 30mg/Ml Vial (Toradol (02/08/25 20:45) Cyclobenzaprine Tablet (Flexeril Tablet) (02/08/25 20:45) Vital Signs 02/08/25 19:55 Temp 97.8 Pulse 113 Resp 16 B/P (MAP) 148/93 Pulse Ox 98 O2 Flow Rate 0 Laboratory Tests Test 02/08/25 19:59 White Blood Count 8.1 Red Blood Count 5.06 Hemoglobin 14.8 Hematocrit 43.1 Mean Corpuscular Volume 85.3 Mean Corpuscular Hemoglobin 29.3 Mean Corpuscular Hemoglobin Concent 34.3 Red Cell Distribution Width 13.7 Platelet Count 277 Mean Platelet Volume 8.4 Neutrophils (%) (Auto) 60.1 Lymphocytes (%) (Auto) 29.5 Monocytes (%) (Auto) 7.4 Eosinophils (%) (Auto) 2.2 Basophils (%) (Auto) 0.8 Neutrophils # (Auto) 4.9 Lymphocytes # (Auto) 2.4 Monocytes # (Auto) 0.6 Eosinophils # (Auto) 0.2 Basophils # (Auto) 0.1 CBC Comment Sodium Level 140 Potassium Level 3.5 Chloride Level 106 Carbon Dioxide Level 24.8 Anion Gap 9 Blood Urea Nitrogen 8 Creatinine 0.69 Estimated GFR/1.73 m2 89 BUN/Creatinine Ratio 11.6 Glucose Level 108 H Calcium Level 9.0 Troponin I High Sensitivity 8 Pro-B-Type Natriuretic Peptide 164 H Albumin 3.7 Lipase 33 Chemistry Comments Medical Decision Making Findings Patient presents with left hip pain. Given history, exam and workup patient likely has sciatica or lumbosacral strain. I have low suspicion for fracture, dislocation, significant ligamentous injury, septic arthritis, gout flare, new autoimmune arthropathy, or gonococcal arthropathy. Patient will follow up with her primary care provider if pain persists. Patient was provided with strict return precautions to the emergency department. Departure Disposition: HOME / SELF CARE / HOMELESS Impression: Primary Impression: Hip pain Additional Impressions: Sciatica Lumbosacral strain Condition: Stable Discharge Instructions: Adductor Muscle Strain, Lumbosacral Strain, Sciatica Additional Instructions: Patient presents with left hip pain. Given history, exam and workup patient likely has sciatica or lumbosacral strain. I have low suspicion for fracture, dislocation, significant ligamentous injury, septic arthritis, gout flare, new autoimmune arthropathy, or gonococcal arthropathy. Patient will follow up with her primary care provider if pain persists. Patient was provided with strict return precautions to the emergency department. Referrals: NO PRIMARY CARE PROVIDER (PCP) Education Educated: Patient Educated regarding: diagnosis, treatment, need for follow up Signature Scribe Signature: A Attestation: Scribed for Ana Maria Molina by LORETA Anderson . 02/08/25 21:42 ANA MARIA MOLINA Feb 08, 2025 21:39
== END 2025-02-08 21:57 | disposition home or self-care (01) ==
LOC: ER 19:50
DX: S39.012A Strain of muscle, fascia and tendon of lower back, initial encounter (principal); F12.90 Cannabis use, unspecified, uncomplicated; I48.91 Unspecified atrial fibrillation; M79.7 Fibromyalgia; Z88.2 Allergy status to sulfonamides; Z88.1 Allergy status to other antibiotic agents; Z90.710 Acquired absence of both cervix and uterus; Z79.899 Other long term (current) drug therapy; X58.XXXA Exposure to other specified factors, initial encounter; Y93.89 Activity, other specified; Y92.89 Other specified places as the place of occurrence of the external cause; Y99.8 Other external cause status
CPT/HCPCS: 36415; 71045; 80048; 83690; 83880; 84484; 85025; 93005; 96372; 99285; J1885

== ENCOUNTER 2025-05-22 18:42 | Emergency (ER) | payer MEDICAID ==
[~2025-05-22] VITALS: Ht 160 cm; Wt 72.0 kg
[~2025-05-22 18:42] MED LIST changes: -CEPH500C2 PO; -HYDR-3973 PO
[2025-05-22 18:49] VITALS: BP 115/84; PULSE 66; RESP 15; O2SAT 100
--- NOTE | 2025-05-22 19:37 | RADIOLOGY REPORT ---
[facility] DI RIBS,UNILAT INDICATION: PAIN COMPARISON: DI CHEST,SINGLE VIEW on DOS: 02/08/25 TECHNIQUE: Frontal view of the chest and 3 views of the left ribs. FINDINGS: No focal consolidation, pleural effusion or significant pneumothorax. Normal cardiomediastinal silhouette. No displaced left rib fracture. IMPRESSION: No acute cardiopulmonary disease. No displaced left rib fracture.
[2025-05-22 21:18] VITALS: TEMP 97.8
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
== END 2025-05-22 21:42 | disposition home or self-care (01) ==
LOC: ER 18:43
DX: R07.89 Other chest pain (principal); M54.50 Low back pain, unspecified; I48.91 Unspecified atrial fibrillation; M79.7 Fibromyalgia; Z88.1 Allergy status to other antibiotic agents; Z88.2 Allergy status to sulfonamides; Z90.710 Acquired absence of both cervix and uterus
CPT/HCPCS: 71100; 99283

== ENCOUNTER 2025-06-02 17:10 | Emergency (ER) | payer MEDICAID ==
[~2025-06-02] VITALS: Ht 160 cm; Wt 81.0 kg
--- NOTE | 2025-06-02 18:45 | Physician Documentation ---
History of Present Illness ~ Chief Complaint: Finger pain Stated Complaint: FINGER PAIN Time Seen by MD: 17:54 OK to notify your PCP?: Yes Primary Medical Doctor: Arvind MORALES Source: patient, RN/ HPI Patient is seen today with complaints of pain of the right thumb. She states she may have gotten in his liver or bit by a spider something and it has been swelling more over the last couple of days. She denies any fever or chills or nausea or vomiting or abdominal pain or chest pain or shortness of breath. She has no other concern or complaint at this time. Tetanus within 5 years: No Medication Reconciliation Allergies: Coded Allergies: Sulfa (Sulfonamide Antibiotics) (Verified Allergy, Unknown, 05/22/25) levofloxacin (Verified Allergy, Unknown, 05/22/25) metronidazole (Verified Allergy, Unknown, 05/22/25) sulfamethoxazole (Verified Allergy, Unknown, 05/22/25) trimethoprim (Verified Allergy, Unknown, 05/22/25) Scheduled Citalopram Hydrobromide (Citalopram HBr), 1 TAB PO DAILY, (Reported) Desvenlafaxine Succinate (Desvenlafaxine Succinate ER), 200 MG PO DAILY, (Reported) Diphenhydramine Hcl (Benadryl), 1 CAP PO Q6H Famotidine (Pepcid), 1 TAB PO Q12H Fluticasone Propionate (Fluticasone Propionate), 50 IH DAILY, (Reported) Gabapentin (Gabapentin), 1 TAB PO BID Hydrocodone Bit/Acetaminophen (Hydrocodon-Acetaminophn 10-325 tablet), 1 TAB PO TID, (Reported) Metoprolol Succinate (Metoprolol Succinate), 1 TAB-CAP PO DAILY Ondansetron Hcl (Zofran), 4 MG PO BID Orphenadrine Citrate (Norflex), 1 TAB PO BID Prochlorperazine Maleate (Compazine), 1 TAB PO Q6H Tizanidine Hcl (Zanaflex), 1 TAB PO TID, (Reported) Scheduled PRN Clonazepam (Clonazepam), 1 TAB PO BID PRN for anxiety, (Reported) Hydroxyzine Hcl* (Atarax*), 1-2 TAB PO TID PRN for anxiety, (Reported) Past Medical History Past Medical History: Arrhythmia, Atrial Fibrillation, *GI/HEPATOBILIARY*, Diverticulitis, Peptic Ulcer Disease, Thyroid (unspecified), Chronic Pain, Fibromyalgia Past Surgical History: hysterectomy Patient History: FH: breast cancer Maternal grandmother FH: heart disease FATHER FH: lung cancer Paternal grandmother Alcohol Use: None Drug Use: marijuana Lives with: Family Lives In: Home Occupation: employed Review of Systems Constitutional: Denies: chills, fever, weakness Eyes: Denies: pain, blurred vision ENT: Denies: ear pain, nose pain, throat pain, mouth pain Respiratory: Denies: cough, shortness of breath Cardiovascular: Denies: chest pain, palpitations Gastrointestinal: Denies: abdominal pain, nausea, vomiting Genitourinary: Denies: burning, dysuria Female Genitalia: Denies: vaginal discharge, pelvic pain Neurological: Denies: headache, dizziness Musculoskeletal: Denies: pain, swelling Integumentary: Denies: rash, lesions Allergic/Immunologic: Denies: hives, itching Hematologic/Lymphatic: Denies: no symptoms reported Psychiatric: Denies: depression, anxiety Physical Exam Vital Signs: Temperature: 98.5, Source: Oral, Heart Rate: 103, Respiratory Rate: 16, BP: 162/90, Pulse Oximetry: 98, Weight: 81.000 Oxygen Flow Rate: 0 Physical Exam General: Awake and Alert, no acute distress. HEENT: Conjunctiva pink, Sclera clear, Mucus Membranes moist. Neck: Supple without masses and tenderness. Resp: Unlabored. Lungs clear to auscultation bilaterally. Heart: Regular Rate and rhythm, normal S1 and S2 without murmur, rub or gallop. Musculoskeletal: Patient on exam does have significant tenderness to palpation of the area of swelling of the tuft of the right thumb the plantar aspect. Patient is neurovascularly intact distally. Motor function intact distally. Extremities: No cyanosis,clubbing or edema. Skin: Warm and Dry. Procedures I&D Procedure : Procedure Note Procedure note: Patient did have digital block performed today by myself using 3 cc on each side of the right thumb. Patient tolerated well. An 11 blade was then used to Erik the abscess of the tuft of the right thumb and a small amount of purulent drainage was expressed. Patient tolerated well. Progress Results/Orders Results/Orders Completed Orders - RIVERA DICKEY Cephalexin Capsule (Keflex Capsule) (06/02/25 20:26) Medications Received in ER Medications (Trade) Dose Ordered Sig/Abner Route PRN Reason Start Time Stop Time Status Last Admin Dose Admin (Keflex capsule) 500 mg ONCE STAT PO 06/02/25 20:26 06/02/25 20:28 DC 06/02/25 20:55 500 MG Vital Signs 06/02/25 17:10 Temp 98.5 Pulse 103 Resp 16 B/P (MAP) 162/90 Pulse Ox 98 O2 Flow Rate 0 Medical Decision Making Additional information obtaine: N/A Findings Patient is seen today with complaints of pain of the right thumb. She states she may have gotten in his liver or bit by a spider something and it has been swelling more over the last couple of days. She denies any fever or chills or nausea or vomiting or abdominal pain or chest pain or shortness of breath. She has no other concern or complaint at this time. Patient did have abscess of right thumb lanced successfully in the ED and bandaged and wound care instructions to change dressing daily and keep wound clean and dry however she may wash with clean soap and water as needed. Prescription of Augmentin 875/125 mg one tab twice a day sent to patient's pharmacy for 10 days. Return to ED with any worsening, concerning or changing symptoms. General Diff Dx:Considerations: Unlikely: Abrasion, Contusion, Fracture, Hematoma, Laceration, Malunion, Neurovascular injury, Open fracture, Sprain, Ulcer, Other Shoulder Diff Dx:Consideration: Unlikely: AC separation, Adhesive capsulitis, Arthritis, Bicipital tendonitis, Calcific tendonitis, Cervical disc disease, Contusion, Dislocation, Fracture-humerus, Fracture-scapula, Fracture-clavicle, GB disease, Hematoma, Impingement syndrome, Myocardial infarction, Neurovascular injury, Open fracture-humerus, Open fracture-scapula, Open fracture-clavicle, Rotator cuff injury, SC dislocatoin, Sprain, Subacromial bursitis, Other Elbow Diff Dx:Considerations: Unlikely: Abrasion, Arthritis, Contustion, DJD, Fracture-humerus, Fracture-radial head, Fracture-radius, Fracture-ulna, Gout, Hematoma, Laceration, Neurovascular injury, Olecranon bursitis, Open fracture, Osteomyelitis, Radial head subluxation, Rheumatoid arthritis, Septic, Sprain, Ulcer, Other Wrist Diff Dx:Considerations: Unlikely: Abrasion, Arthritis, DJD, Gout, Rheumatoid, Septic, Carpal tunnel snydrome, Contusion, Dislocation, Fracture- carpal, Fracture-radius, Fracture-ulna, Ganglion, Laceration, Neurovascular injury, Open fracture, Strain, Other Hand Diff Dx:Considerations: Unlikely: Abrasion, Arthritis, Contusion, DJD, Felon, Fracture-carpal, Fracture-metacarpal, Fracture-phalynx, Fracture-radius, Fracture-ulna, Gout, Hematoma, Herpetic rich, Laceration, Neurovascular injury, Open fracture, Paronychia, Rheumatoid arthritis, Septic, Sprain, Subungual hematoma, Tenosynovitis, Volar plate injury, Cellulitis, Malunion, Other Finger Diff Dx:Considerations: Include: Abrasion, Cellulitis, Contusion Departure Disposition: HOME / SELF CARE / HOMELESS Impression: Primary Impression: Abscess Condition: Stable Discharge Instructions: Abscess/Boil Additional Instructions: Patient did have abscess of right thumb lanced successfully in the ED and bandaged and wound care instructions to change dressing daily and keep wound clean and dry however she may wash with clean soap and water as needed. Prescription of Augmentin 875/125 mg one tab twice a day sent to patient's pharmacy for 10 days. Return to ED with any worsening, concerning or changing symptoms. Referrals: NO PRIMARY CARE PROVIDER (PCP) Prescriptions Amox Tr/Potassium Clavulanate (Augmentin 875-125 Tablet) 1 Each Tablet 1 TAB PO Q12H for 10 Days, #20 TAB Prov: RIVERA DICKEY 06/02/25 Signature Scribe Signature: No scribe Attestation: No scribe RIVERA DICKEY Jun 02, 2025 18:45
[2025-06-02] MEDS ORDERED: AMOX-117 PO (21:08)
[2025-06-02 21:13] VITALS: BP 158/80; PULSE 99; RESP 18; TEMP 98.6; O2SAT 99
[2025-06-03] MEDS ORDERED: AMOX-117 PO (13:49)
== END 2025-06-02 21:15 | disposition home or self-care (01) ==
LOC: ER 17:10
DX: L02.511 Cutaneous abscess of right hand (principal); I48.91 Unspecified atrial fibrillation; G89.29 Other chronic pain; M79.7 Fibromyalgia; Z87.11 Personal history of peptic ulcer disease; Z88.2 Allergy status to sulfonamides; Z88.1 Allergy status to other antibiotic agents; Z90.710 Acquired absence of both cervix and uterus; Z88.8 Allergy status to other drugs, medicaments and biological substances; Z79.899 Other long term (current) drug therapy
CPT/HCPCS: 26010; 99283

== ENCOUNTER 2025-06-03 11:59 | Emergency (ER) | payer MEDICAID ==
[~2025-06-03] VITALS: Ht 160 cm; Wt 80.9 kg
[~2025-06-03 11:59] MED LIST changes: +AMOX-117 PO
[2025-06-03 12:18] VITALS: BP 112/79; PULSE 89; TEMP 98.7; O2SAT 97
--- NOTE | 2025-06-03 13:38 | Physician Documentation ---
History of Present Illness ~ Chief Complaint: Arm Pain Stated Complaint: R UNDER ARM PAIN Time Seen by MD: 13:03 Primary Medical Doctor: Arvind MORALES HPI 55-year-old female returns to the ED after being seen yesterday for a dog bite and prescribed antibiotics. She has not picked her medications in his reporting arm pit pain Tetanus within 5 years: No Medication Reconciliation Allergies: Coded Allergies: Sulfa (Sulfonamide Antibiotics) (Verified Allergy, Unknown, 06/03/25) levofloxacin (Verified Allergy, Unknown, 06/03/25) metronidazole (Verified Allergy, Unknown, 06/03/25) sulfamethoxazole (Verified Allergy, Unknown, 06/03/25) trimethoprim (Verified Allergy, Unknown, 06/03/25) Scheduled Amox Tr/Potassium Clavulanate (Augmentin 875-125 Tablet), 1 TAB PO Q12H Citalopram Hydrobromide (Citalopram HBr), 1 TAB PO DAILY, (Reported) Desvenlafaxine Succinate (Desvenlafaxine Succinate ER), 200 MG PO DAILY, (Reported) Diphenhydramine Hcl (Benadryl), 1 CAP PO Q6H Famotidine (Pepcid), 1 TAB PO Q12H Fluticasone Propionate (Fluticasone Propionate), 50 IH DAILY, (Reported) Gabapentin (Gabapentin), 1 TAB PO BID Hydrocodone Bit/Acetaminophen (Hydrocodon-Acetaminophn 10-325 tablet), 1 TAB PO TID, (Reported) Metoprolol Succinate (Metoprolol Succinate), 1 TAB-CAP PO DAILY Ondansetron Hcl (Zofran), 4 MG PO BID Orphenadrine Citrate (Norflex), 1 TAB PO BID Prochlorperazine Maleate (Compazine), 1 TAB PO Q6H Tizanidine Hcl (Zanaflex), 1 TAB PO TID, (Reported) Scheduled PRN Clonazepam (Clonazepam), 1 TAB PO BID PRN for anxiety, (Reported) Hydroxyzine Hcl* (Atarax*), 1-2 TAB PO TID PRN for anxiety, (Reported) Past Medical History Past Medical History: Arrhythmia, Atrial Fibrillation, *GI/HEPATOBILIARY*, Diverticulitis, Peptic Ulcer Disease, Thyroid (unspecified), Chronic Pain, Fibromyalgia Past Surgical History: hysterectomy Patient History: FH: breast cancer Maternal grandmother FH: heart disease FATHER FH: lung cancer Paternal grandmother Alcohol Use: None Drug Use: marijuana Lives with: Family Lives In: Home Occupation: employed Review of Systems All Other Systems at this time: Reviewed and Negative ROS As stated above in the HPI, otherwise all systems are reviewed and negative. Physical Exam Vital Signs: Temperature: 98.7, Source: Oral, Heart Rate: 89, Respiratory Rate: 18, BP: 112/79, Pulse Oximetry: 97, Weight: 80.900 Oxygen Flow Rate: 0 Physical Exam General: Alert, no apparent distress. Chest: No accessory muscle use. Cardiovascular: Regular rate and rhythm, no murmurs. Gastrointestinal: Soft, nontender, nondistended. Bowels sounds present. Neurologic: Oriented x4. Psychiatric: Normal mood and affect. Skin: Normal color, warm and dry. No edema, no ecchymosis. Progress Results/Orders Results/Orders Completed Orders - RENO THOMPSON JOWL TRIMMER Amox Tr/Potassium Clavulanate (Augmentin (06/03/25 13:50) Medications Received in ER Medications (Trade) Dose Ordered Sig/Abner Route PRN Reason Start Time Stop Time Status Last Admin Dose Admin (Augmentin 875-125mg tablet) 1 tab ONCE ONCE PO 06/03/25 13:50 06/03/25 13:51 DC 06/03/25 14:00 1 TAB Vital Signs 06/03/25 06/03/25 12:18 14:02 Temp 98.7 Pulse 89 Resp 18 16 B/P (MAP) 112/79 Pulse Ox 97 O2 Flow Rate 0 Medical Decision Making Additional information obtaine: old records Findings Currently suspecting lymphadenopathy secondary to a developing infection patient was advised to peanut picker her antibiotic however she eloped from the lobby General Diff Dx:Considerations: Unlikely: Abrasion, Contusion, Fracture, Hematoma, Laceration, Malunion, Neurovascular injury, Open fracture, Sprain, Ulcer, Other Shoulder Diff Dx:Consideration: Include: AC separation, Adhesive capsulitis, Arthritis, Bicipital tendonitis, Calcific tendonitis, Cervical disc disease, Contusion, Dislocation, Fracture-humerus, Fracture-scapula, Fracture-clavicle, GB disease, Hematoma, Impingement syndrome, Myocardial infarction, Neurovascular injury, Open fracture-humerus, Open fracture-scapula, Open fracture-clavicle, Rotator cuff injury, SC dislocatoin, Sprain, Subacromial bursitis, Other Elbow Diff Dx:Considerations: Include: Abrasion, Arthritis, Contustion, DJD, Fracture-humerus, Fracture-radial head, Fracture-radius, Fracture-ulna, Gout, Hematoma, Laceration, Neurovascular injury, Olecranon bursitis, Open fracture, Osteomyelitis, Radial head subluxation, Rheumatoid arthritis, Septic, Sprain, Ulcer, Other Wrist Diff Dx:Considerations: Unlikely: Abrasion, Arthritis, DJD, Gout, Rheumatoid, Septic, Carpal tunnel snydrome, Contusion, Dislocation, Fracture- carpal, Fracture-radius, Fracture-ulna, Ganglion, Laceration, Neurovascular injury, Open fracture, Strain, Other Hand Diff Dx:Considerations: Unlikely: Abrasion, Arthritis, Contusion, DJD, Felon, Fracture-carpal, Fracture-metacarpal, Fracture-phalynx, Fracture-radius, Fracture-ulna, Gout, Hematoma, Herpetic rich, Laceration, Neurovascular injury, Open fracture, Paronychia, Rheumatoid arthritis, Septic, Sprain, Subungual hematoma, Tenosynovitis, Volar plate injury, Cellulitis, Malunion, Other Finger Diff Dx:Considerations: Unlikely: Abrasion, Cellulitis, Contusion, Dislocation, Fracture, Hematoma, Laceration, Neurovascular injury, Open fracture, Subungual hematoma, Other Departure Disposition: 01 HOME / SELF CARE / HOMELESS Impression: Primary Impression: Dog bite Referrals: NO PRIMARY CARE PROVIDER (PCP) Prescriptions Amox Tr/Potassium Clavulanate (Augmentin 875-125 Tablet) 1 Each Tablet 1 TAB PO Q12H for 10 Days, #20 TAB Prov: RENO THOMPSON NP 06/03/25 Signature Scribe Signature: g Attestation: Scribed for Reno Thompson Np by Reno Garcia NP . 06/03/25 18:14 RENO THOMPSON NP Jun 03, 2025 13:38
[2025-06-03] MEDS ORDERED: AMOX-117 PO (13:49)
[2025-06-03] MEDS: amox tr/potassium clavulanate 875/125mg TAB PO ONE (14:00)
[2025-06-03 14:02] VITALS: RESP 16
== END 2025-06-03 14:04 | disposition home or self-care (01) ==
LOC: ER 12:00
DX: S41.151A Open bite of right upper arm, initial encounter (principal); M79.7 Fibromyalgia; I48.91 Unspecified atrial fibrillation; G89.29 Other chronic pain; F12.90 Cannabis use, unspecified, uncomplicated; Z87.11 Personal history of peptic ulcer disease; Z88.1 Allergy status to other antibiotic agents; Z88.2 Allergy status to sulfonamides; Z88.8 Allergy status to other drugs, medicaments and biological substances; Z90.710 Acquired absence of both cervix and uterus; Z79.899 Other long term (current) drug therapy; W54.0XXA Bitten by dog, initial encounter; Y93.89 Activity, other specified; Y92.89 Other specified places as the place of occurrence of the external cause; Y99.8 Other external cause status
CPT/HCPCS: 99283

== ENCOUNTER 2025-06-15 18:15 | Emergency (ER) | payer MEDICAID ==
[~2025-06-15] VITALS: Ht 162.6 cm; Wt 77.7 kg
[~2025-06-15 18:15] MED LIST changes: -AMOX-117 PO
--- NOTE | 2025-06-15 18:36 | Physician Documentation ---
History of Present Illness ~ Chief Complaint: Ingestion Error Stated Complaint: NAUSEA/VOMITING Time Seen by MD: 18:35 Primary Medical Doctor: Arvind MORALES HPI 55-year-old female who has been receiving Subutex for medication assisted therapy as she transitions off and [place] 10s. Today took a full tablet instead of the half a tablet as directed and then repeated the dose in 1 hour. Subsequently began having some nausea and vomiting. No evidence of withdrawals. No respiratory depression or pupil constriction. Patient denies other recreational drug use of the in the cannabis. Medication Reconciliation Allergies: Coded Allergies: Sulfa (Sulfonamide Antibiotics) (Verified Allergy, Unknown, 06/15/25) levofloxacin (Verified Allergy, Unknown, 06/15/25) metronidazole (Verified Allergy, Unknown, 06/15/25) sulfamethoxazole (Verified Allergy, Unknown, 06/15/25) trimethoprim (Verified Allergy, Unknown, 06/15/25) Scheduled Citalopram Hydrobromide (Citalopram HBr), 1 TAB PO DAILY, (Reported) Desvenlafaxine Succinate (Desvenlafaxine Succinate ER), 200 MG PO DAILY, (Reported) Diphenhydramine Hcl (Benadryl), 1 CAP PO Q6H Famotidine (Pepcid), 1 TAB PO Q12H Fluticasone Propionate (Fluticasone Propionate), 50 IH DAILY, (Reported) Gabapentin (Gabapentin), 1 TAB PO BID Hydrocodone Bit/Acetaminophen (Hydrocodon-Acetaminophn 10-325 tablet), 1 TAB PO TID, (Reported) Metoprolol Succinate (Metoprolol Succinate), 1 TAB-CAP PO DAILY Ondansetron Hcl (Zofran), 4 MG PO BID Orphenadrine Citrate (Norflex), 1 TAB PO BID Prochlorperazine Maleate (Compazine), 1 TAB PO Q6H Tizanidine Hcl (Zanaflex), 1 TAB PO TID, (Reported) Scheduled PRN Clonazepam (Clonazepam), 1 TAB PO BID PRN for anxiety, (Reported) Hydroxyzine Hcl* (Atarax*), 1-2 TAB PO TID PRN for anxiety, (Reported) Discontinued Medications Amox Tr/Potassium Clavulanate (Augmentin 875-125 Tablet), 1 TAB PO Q12H Discontinued Reason: Auto Discontinued Past Medical History Past Medical History: Arrhythmia, Atrial Fibrillation, *GI/HEPATOBILIARY*, Diverticulitis, Peptic Ulcer Disease, Thyroid (unspecified), Chronic Pain, Fibromyalgia Past Surgical History: hysterectomy Patient History: FH: breast cancer Maternal grandmother FH: heart disease FATHER FH: lung cancer Paternal grandmother Alcohol Use: None Drug Use: marijuana Lives with: Family Lives In: Home Occupation: employed Review of Systems All Other Systems at this time: Reviewed and Negative Gastrointestinal: Reports: abdominal pain, nausea, vomiting Physical Exam Vital Signs: RN Vital Signs have been reviewed: Yes, Temperature: 97.1, Source: Oral, Heart Rate: 77, Respiratory Rate: 16, BP: 114/72, Pulse Oximetry: 94, Weight: 77.730 Oxygen Flow Rate: 0 General Appearance: alert, ill-appearing, moderate distress Pupils/EOM/Fundus: PERRLA Head: normal inspection Neck: normal inspection Respiratory: lungs clear Chest: no accessory muscle use Cardiovascular: normal peripheral pulses Gastrointestinal: tenderness; No: guarding, rigidity Extremities: non-tender Neurologic: oriented x4 Cerebellar function exam: normal Motor / Sensory: no motor deficit Thought/Hallucinations: normal thought pattern Affect: anxious Skin: normal color Progress Results/Orders Results/Orders Completed Orders - CASEY THOMPSON PAC Normal Saline 1000ml (0.9% Sodium Chlori (06/15/25 18:45) Diphenhydramine Inj (Benadryl Inj.) (06/15/25 18:45) Prochlorperazine Inj (Compazine Inj) (06/15/25 18:45) Medications Received in ER Medications (Trade) Dose Ordered Sig/Abner Route PRN Reason Start Time Stop Time Status Last Admin Dose Admin Sodium Chloride 1,000 ml @ 1,000 mls/hr ONCE ONCE IV 06/15/25 18:45 06/15/25 19:44 DC 06/15/25 18:55 1,000 MLS/HR (Benadryl inj.) 50 mg ONCE ONCE IV 06/15/25 18:45 06/15/25 18:47 DC 06/15/25 18:57 50 MG (Compazine inj) 10 mg ONCE ONCE IV 06/15/25 18:45 06/15/25 18:47 DC 06/15/25 18:57 10 MG Vital Signs 06/15/25 06/15/25 06/15/25 06/15/25 18:22 18:35 20:14 20:41 Temp 97.1 98.6 98.6 Pulse 77 74 79 Resp 16 16 16 B/P (MAP) 114/72 143/87 (105) 123/73 (90) Pulse Ox 94 97 97 O2 Flow Rate 0 Medical Decision Making Additional information obtaine: N/A Findings Examination history consistent with a fatty likely of the precipitated withdrawal as she was transitioning from [place] 10 to Subutex. Evaluate in the emergency department received IV hydration along with Compazine and Benadryl. No tremors, she had an upset and while oriented to discharge. Differential Dx:Considerations: Include: Alcohol abuse, Anxiety, Bipolar disorder, Conversion disorder, Delirium, Depression, Drug Overdose-Accidental, Drug Overdose-Intentional, Encephalopathy, Hallucinations, Homicidal, Liver failure, Panic disorder, Personality disorder, Renal failure, Respiratory failure, Schizophrenia, Substance abuse, Suicidal attempt, Suidical gesture, Other Departure Disposition: 01 HOME / SELF CARE / HOMELESS Impression: Primary Impression: OPIOID DEPENDENCE WITH WITHDRAWAL Condition: Improved Discharge Instructions: Opioid Withdrawal Additional Instructions: Please only take medications as directed. Keep follow up appointment with your primary care physician's and obtain your prescriptions. Thank you for visiting emergency department [facility]. Referrals: NO PRIMARY CARE PROVIDER (PCP) Education Educated: Patient Educated regarding: diagnosis, treatment, prognosis, need for follow up Signature Scribe Signature: . Attestation: . ALECIA LATIF MD Jun 15, 2025 18:36 CASEY THOMPSON PAC Jun 15, 2025 18:47
[2025-06-15] MEDS: normal saline 1000ml 1,000 ML IV ONE (18:55)
[2025-06-15 21:29] VITALS: BP 118/72; PULSE 74; RESP 18; TEMP 98.6; O2SAT 99
== END 2025-06-15 21:29 | disposition home or self-care (01) ==
LOC: ER 18:16
DX: F11.23 Opioid dependence with withdrawal (principal); R11.2 Nausea with vomiting, unspecified; F12.90 Cannabis use, unspecified, uncomplicated; G89.29 Other chronic pain; I48.91 Unspecified atrial fibrillation; M79.7 Fibromyalgia; Z88.2 Allergy status to sulfonamides; Z88.1 Allergy status to other antibiotic agents; Z88.8 Allergy status to other drugs, medicaments and biological substances; Z90.710 Acquired absence of both cervix and uterus; Z87.11 Personal history of peptic ulcer disease; Z79.899 Other long term (current) drug therapy
CPT/HCPCS: 96361; 96374; 96375; 99284; J0780; J1200; J7030